=== PATIENT | female | born 1950 | race Caucasian/White ===

== ENCOUNTER → 2017-07-14 | Outpatient (CLI) | payer BC ==
[~2017-07-14] MED LIST: AMB10 PO; ATOR10TA88 PO; CONJ.6255 PO; PHEN37.586 PO; PRLSR20 PO; SENN-61 PO; SYN112 PO
--- NOTE | 2017-07-14 15:18 | MAMMOGRAPHY REPORT ---
BILATERAL DIGITAL DIAGNOSTIC MAMMOGRAM TOMOSYNTHESIS WITH CAD: 07/14/2017 CLINICAL HISTORY: 67-year-old woman presents for annual bilateral screening mammography, and also lulu se follow-up of additional clusters of microcalcifications of the left breast. TECHNIQUE: Bilateral CC and MLO 2-D and tomosynthesis images, spot magnification left CC and ML view s of both medially and laterally were obtained. Current study was also evaluated with a Computer Aid ed Detection (CAD) system. COMPARISON: Comparison is made to exams dated: 07/13/2016 mammogram, 07/09/2015 mammogram, 06/20/2014 m ammogram, 06/12/2013 mammogram, 06/10/2012 mammogram, and 06/08/2011 mammogram - [facility] enter. BREAST COMPOSITION: The tissue of both breasts is heterogeneously dense, which may obscure small mas ses. FINDINGS: The parenchymal pattern is similar to prior mammograms. There is a nodular asymmetry in th e superior posterior right breast on the MLO view, that appears very similar to the 06/08/2011 and mammograms, therefore likely benign. No obvious new mass, focal area of architectural disto rtion, asymmetry or new calcifications are identified. There is a stable metallic biopsy marker in t he lower inner quadrant of the left breast. The previously described clusters of punctate microcalci fications in both the lateral and medial left breast are stable dating back to May 2014, and with 3 years of stability are considered benign. There are mild vascular calcifications in the breasts. IMPRESSION: ACR BI-RADS CATEGORY 2: BENIGN Stable bilateral mammograms, including at least 3 clusters of punctate microcalcifications in the lat eral and medial left breast that are unchanged for 3 years and considered benign. There is no mammog raphic evidence of malignancy bilaterally. Recommend return to annual screening mammography schedule . These results and recommendations were discussed with the patient at the time of the exam. Approximately 10% of breast cancers are not detected with mammography. A negative mammographic report should not delay biopsy if a clinically suggestive mass is present. Judy Fleming M.D. ay/:07/14/2017 11:20:49 Canvassing Manager: Savanah Shaffer RT(R)(M), [facility] letter sent: Normal 1/2 BI-RADS Code: ACR BI-RADS Category 2: Benign
== END | disposition home or self-care (01) ==
LOC: C.MAMM 10:32
PROVIDERS: ATTEND Surgery
DX: R92.0 Mammographic microcalcification found on diagnostic imaging of breast (principal)

== ENCOUNTER 2024-10-02 20:14 | Observation (INO) ==
[2024-10-02 21:02] LABS: Basophils # (auto) 0.04 K/uL (0.00-0.20); Basophils % (auto) 0.2 %; Eosinophils # (auto) 0.04 K/uL (0.00-0.50); Eosinophils % (auto) 0.2 %; Hematocrit (blood only) 39.1 % (37.0-47.0); Hemoglobin 13.2 g/dl (12.0-16.0); Immature Granulocytes # (auto) 0.07 K/uL (0.01-0.20); Immature Granulocytes % (auto) 0.4 %; Lymphocytes # (auto) 1.86 K/uL (1.20-3.40); Lymphocytes % (auto) 11.1 %; Mean Corpuscular Hemoglobin 28.4 pg (25.0-34.0); Mean Corpuscular Hgb Conc 33.8 g/dL (32.0-36.0); Mean Corpuscular Volume 84.3 fL (80.0-100.0); Monocytes # (auto) 0.92 K/uL (0.11-0.59); Monocytes % (auto) 5.5 %; Neutrophils # (auto) 13.86 K/uL (1.40-6.50); Neutrophils % (auto) 82.6 %; Platelet Count 226 K/uL (130-400); RDW Coefficient of Variation 13.7 % (11.5-14.5); RDW Standard Deviation 42.4 fL (36.4-46.3); Red Blood Count 4.64 M/uL (4.20-5.40); White Blood Count 16.79 K/ul (4.8-10.8)
[2024-10-02 21:18] LABS: Alanine Aminotransferase 16 U/L (7-52); Albumin Globulin Ratio 1.3 (0.9-2); Albumin Level 4.2 gm/dl (3.4-5.0); Alkaline Phosphatase 74 U/L (34-104); Anion Gap 8 (3-11); Aspartate Aminotransferase 25 U/L (13-39); BUN Creatinine Ratio 24.3 (10-20); Bilirubin,Total 1.3 mg/dl (0.2-1.0); Blood Urea Nitrogen 26 mg/dl (6-23); Calcium 9.1 mg/dl (8.6-10.3); Carbon Dioxide 22 mmol/L (21-32); Chloride 100 mmol/L (98-107); Globulin 3.3 gm/dl (2.5-4.0); Glucose 107 mg/dl (70-99(Fasting)); Potassium 3.8 mmol/L (3.5-5.1); Sodium 130 mmol/L (136-145); Total Protein 7.5 gm/dl (6.0-8.3)
[2024-10-02 21:29] LABS: INR 1.1 (0.9-1.1); Partial Thromboplastin Time 27 Seconds (21-31); Prothrombin Time 11.4 Seconds (9.0-12.0)
[2024-10-02 21:51] LABS: Adenovirus PCR Not Detected (NotDetected); Bordetella parapertussis PCR Not Detected (NotDetected); Bordetella pertussis PCR Not Detected (NotDetected); Chlamydia pneumoniae PCR Not Detected (NotDetected); Coronavirus 229E PCR Not Detected (NotDetected); Coronavirus CoV-2 (COVID19)PCR Not Detected (NotDetected); Coronavirus HKU1 PCR Not Detected (NotDetected); Coronavirus NL63 PCR Not Detected (NotDetected); Coronavirus OC43PCR Not Detected (NotDetected); Human Metapneumovirus PCR Not Detected (NotDetected); Influenza A PCR Not Detected (NotDetected); Influenza B PCR Not Detected (NotDetected); Mycoplasma pneumoniae PCR Not Detected (NotDetected); Parainfluenza Virus 1 PCR Not Detected (NotDetected); Parainfluenza Virus 2 PCR Not Detected (NotDetected); Parainfluenza Virus 3 PCR Not Detected (NotDetected); Parainfluenza Virus 4 PCR Not Detected (NotDetected); Respiratory Syncytial VirusPCR Not Detected (NotDetected); Rhinovirus/Enterovirus PCR Not Detected (NotDetected)
[2024-10-02 23:46] LABS: Appearance Urine Clear (Clear); Bilirubin Urine Negative (Negative); Blood Urine Trace-intact (Negative); Color Urine Yellow; Glucose Urine UA Negative (Negative); Ketones Urine Negative (Negative); Leukocyte Esterase Urine 1+ (Negative); Nitrite Urine Negative (Negative); Protein Urine Negative (Negative); Specific Gravity Urine <= 1.005 (1.000-1.030); Urobilinogen Urine Negative (Negative)
--- NOTE | 2024-10-02 23:55 | Emergency Department Note ---
Impression & Plan Acute UTI, Leukocytosis, Generalized body aches, Polyarthralgia, Elevated erythrocyte sedimentation rate, CRP elevated ED Provider Note NAME: CHRIS GARRISON AGE: 74 SEX: F : 1950 ARRIVES VIA: Walk-In INFORMANT: Patient ED PROVIDER(S): Prakash Ortega MD CHIEF COMPLAINT: Generalized bodyaches, joint pain, generalized weakness PLAN: Disposition: Admit MEDICAL DECISION MAKING: The patient is a pleasant 74-year-old woman with a past medical history of hypothyroidism, hyperlipidemia, GERD, peripheral neuropathy who presents to the emergency department via walk-in accompanied by family for evaluation of generalized bodyaches and joint pain that occurred abruptly at 3 AM last night and has been progressively worsening since then where she reports being unable to walk due to pain throughout her body. She denies any fevers. She denies any cough, congestion though did speculate to her daughter that she wondered if she had COVID but did perform a negative home COVID-19 test. She denies nausea, vomiting, diarrhea. She has any urinary symptoms. She denies any prior episodes of similar symptoms. Of note, the patient did arrive to emergency department during time of high volume, acuity and prolonged emergency department waiting times. Critical pathways initiated from triage. The patient presents afebrile in no acute distress with stable vital signs. She appears clinically dry. She has no focal neurologic deficits. She exhibits discomfort with range of motion of bilateral knees, elbows and shoulders. There is no overt swelling, warmth or discoloration of her joints. EKG demonstrates left bundle branch block, no Sgarbossa criteria, no prior EKGs for comparison. Chest x-ray with interstitial thickening without focal consolidation. Description of lucency underneath the left diaphragm is consistent with the patient's stomach and transverse colon as seen on subsequent CT imaging. No clinical signs or symptoms to suggest perforation. WBC 16.7 K with neutrophilia but no left shift, nonspecific. H/H and platelets within normal limits. Chemistry without metabolic acidosis. BUNs/creatinine is 24 consistent with patient's clinical dry appearance. Total bili 1.3, nonspecific with LFTs otherwise normal. CPK within normal limits. ESR and CRP are elevated at 41 and 5.89, respectively, nonspecific. Procalcitonin is elevated at 1.07. TSH is normal limits. UA is suspicious for infection with WBCs 11-20 albeit with epithelial cells and no bacteria. Respiratory BioFire panel was negative. Anaplasma and Babesia smear were negative. DNA testing pending. Lyme screen was negative. Patient was treated with IV hydration, IV APAP, Toradol, dexamethasone but still had persistence of symptoms. Given suspicion for urinary infection with leukocytosis elevated procalcitonin blood cultures obtained and she was initiated with ceftriaxone. Given persistence of the patient's symptoms patient was referred to hospital service for admission. Case was discussed with Dr. [facility], who will evaluate the patient for admission. CT of the abdomen pelvis subsequently negative for acute intra-abdominal process. Hiatal hernia, bilateral simple renal cysts, hypodense left suprarenal nodule, umbilical hernia containing fat and spondylitic degenerative changes within the lumbar spine are described. Further management per admitting team. Triage Nursing notes reviewed and agree them. Prior/external medical records reviewed Vital Signs: reviewed Differential diagnosis: Infection, dehydration, metabolic abnormality, hypo/hyperglycemia, electrolyte disturbance, anemia, hypoxia, cardiac sources, intracerebral event, toxicologic, neurologic, as well as other pathologies. ER treatment provided: See below. Diagnostics interpreted by me: ECG: Normal sinus rhythm with sinus arrhythmia, 81 bpm, no ectopy, left bundle branch block, no Sgarbossa criteria, QTc 504, QRS 152. No prior EKGs for comparison. Cardiac Monitoring: An order for continuous cardiac monitoring was placed and demonstrated normal sinus rhythm, no ectopy. Laboratory studies: See below Imaging studies: See below Consultation(s): Case was discussed with Dr. [facility], who will evaluate the patient for admission. HPI: The patient is a pleasant 74-year-old woman with a past medical history of hypothyroidism, hyperlipidemia, GERD, peripheral neuropathy who presents to the emergency department via walk-in accompanied by family for evaluation of generalized bodyaches and joint pain that occurred abruptly at 3 AM last night and has been progressively worsening since then where she reports being unable to walk due to pain throughout her body. She denies any fevers. She denies any cough, congestion though did speculate to her daughter that she wondered if she had COVID but did perform a negative home COVID-19 test. She denies nausea, vomiting, diarrhea. She has any urinary symptoms. She denies any prior episodes of similar symptoms. ROS: See above HPI for pertinent positives & negatives. A total of 10 systems reviewed and were otherwise negative. VITALS:See Below PHYSICAL EXAMINATION: GENERAL: Awake, alert, fatigued-appearing, in no distress HENT: Normocephalic, atraumatic. Oropharynx with dry mucous membranes and otherwise unremarkable. EYES: Normal conjunctiva. Sclera non-icteric. EOMI. No nystamgus. PEARRL. NECK: Supple. No nuchal rigidity. FROM. No JVD. RESPIRATORY: Clear to auscultation. CARDIAC: Regular rate, normal rhythm. Extremities warm and well perfused. Pulses equal. ABDOMEN: Soft, non-distended. No tenderness to palpation. No rebound or guarding. No masses. MUSCULOSKELETAL: Chest examination reveals no tenderness. The back is symmetrical on inspection without obvious abnormality. There is no CVA tenderness to palpation. Exhibits discomfort with range of motion of bilateral knees, elbows and shoulders. There is no overt swelling, warmth or discoloration of her joints. LOWER EXTREMITIES: Calves are equal size bilaterally and non-tender. No edema. No discoloration. NEURO: No focal sensory or motor deficits noted. Generalized weakness with 4/5 strength and SILT x 4 extremities. SKIN: No rash or jaundice noted. Prakash Ortega MD Past Med/Surg History Problem List (Updated 10/03/24 @ 06:36 by Prakash Ortega MD) CRP elevated (Acute) Elevated erythrocyte sedimentation rate (Acute) Polyarthralgia (Acute) Generalized body aches (Acute) Leukocytosis (Acute) Acute UTI (Acute) Social History Smoking Status: Never smoker Preferred Language: Lithuanian Feels Safe at Home: Yes Allergies Allergies Allergy/AdvReac Type Severity Reaction Status Date / Time No Known Allergies Allergy Unknown Verified 03/26/08 15:18 niacin AdvReac Intermediate SEVERE Verified 11/29/09 04:32 FLUSHING AND DIZZINESS lovastatin AdvReac Mild FLUSHING Unverified 11/29/09 04:32 Home Meds Home Medications Medication Instructions Recorded Confirmed aspirin 81 mg tablet,delayed 81 mg PO DAILY 10/03/24 10/03/24 release atorvastatin 40 mg tablet 40 mg PO DAILY 10/03/24 10/03/24 citalopram 20 mg tablet 20 mg PO DAILY 10/03/24 10/03/24 cyanocobalamin (vitamin B-12) 500 500 mcg PO DAILY 10/03/24 10/03/24 mcg tablet gabapentin 300 mg capsule 300 mg PO TID 10/03/24 10/03/24 levothyroxine 88 mcg tablet 88 mcg PO DAILY 10/03/24 10/03/24 (Synthroid) magnesium oxide 400 mg PO DAILY 10/03/24 10/03/24 omeprazole 20 mg capsule,delayed 20 mg PO DAILY 10/03/24 10/03/24 release semaglutide 2 mg/dose (8 mg/3 mL) 2 mg subcut WK 10/03/24 10/03/24 subcutaneous pen injector (Ozempic) valacyclovir 1 gram tablet 2,000 mg PO UD 10/03/24 10/03/24 Results & Data (ED) Vital Signs Vital Signs - 24 hr 10/02/24 20:29 10/02/24 21:27 10/02/24 23:22 Temperature 36.8 C Temperature Source Temporal Artery Scan Pulse Rate 86 Pulse Rate [Apical] Pulse Rate [Finger] 79 86 Respiratory Rate 20 16 16 Respiratory Effort / Characteristics Non-Labored Spontaneous Non-Labored Spontaneous Non-Labored Spontaneous Respiratory Depth Normal Normal Normal Respiratory Pattern Regular Regular Blood Pressure 102/50 L Blood Pressure [Right Arm] 121/59 L 117/72 Blood Pressure Mean 67 Blood Pressure Mean [Right Arm] 79 87 Pulse Oximetry 100 97 95 Oxygen Delivery Method Room Air Room Air Room Air Sepsis Recent Fever Within 48 Hours No Sepsis New/Unexplained Change in Mental Status N/A Sepsis Action Taken by Nursing No Action Required 10/03/24 01:38 10/03/24 01:59 10/03/24 03:00 Temperature Temperature Source Pulse Rate 81 Pulse Rate [Apical] 81 70 Pulse Rate [Finger] Respiratory Rate 18 18 Respiratory Effort / Characteristics Non-Labored Spontaneous Non-Labored Spontaneous Respiratory Depth Normal Normal Respiratory Pattern Regular Regular Blood Pressure Blood Pressure [Right Arm] 135/69 117/59 L Blood Pressure Mean Blood Pressure Mean [Right Arm] 91 78 Pulse Oximetry 96 94 Oxygen Delivery Method Room Air Room Air Sepsis Recent Fever Within 48 Hours Sepsis New/Unexplained Change in Mental Status Sepsis Action Taken by Nursing 10/03/24 05:39 10/03/24 05:48 Temperature Temperature Source Pulse Rate 67 81 Pulse Rate [Apical] Pulse Rate [Finger] Respiratory Rate 18 Respiratory Effort / Characteristics Respiratory Depth Respiratory Pattern Blood Pressure 127/81 Blood Pressure [Right Arm] Blood Pressure Mean Blood Pressure Mean [Right Arm] Pulse Oximetry 96 Oxygen Delivery Method Room Air Sepsis Recent Fever Within 48 Hours Sepsis New/Unexplained Change in Mental Status Sepsis Action Taken by Nursing Laboratory Data Attestation: I reviewed the patient's lab results. 10/02/24 20:46 10/02/24 20:46 Lab Results 10/02/24 10/02/24 10/02/24 Range/Units 20:40 20:46 23:35 WBC 16.79 H (4.8-10.8) K/ul RBC 4.64 (4.20-5.40) M/uL Hgb 13.2 (12.0-16.0) g/dl Hct 39.1 (37.0-47.0) % MCV 84.3 (80.0-100.0) fL MCH 28.4 (25.0-34.0) pg MCHC 33.8 (32.0-36.0) g/dL RDW Std Deviation 42.4 (36.4-46.3) fL RDW Coeff of Abimael 13.7 (11.5-14.5) % Plt Count 226 (130-400) K/uL MPV 10.0 (9.4-12.4) fL Immature Gran % (Auto) 0.4 % Neut % (Auto) 82.6 % Lymph % (Auto) 11.1 % [place] % (Auto) 5.5 % Eos % (Auto) 0.2 % Baso % (Auto) 0.2 % Neut # (Auto) 13.86 H (1.40-6.50) K/uL Lymph # (Auto) 1.86 (1.20-3.40) K/uL [place] # (Auto) 0.92 H (0.11-0.59) K/uL Eos # (Auto) 0.04 (0.00-0.50) K/uL Baso # (Auto) 0.04 (0.00-0.20) K/uL Immature Gran # (Auto) 0.07 (0.01-0.20) K/uL ESR 41 H (0-30) mm/hr PT 11.4 (9.0-12.0) Seconds INR 1.1 (0.9-1.1) APTT 27 (21-31) Seconds PTT Ratio 1.0 Sodium 130 L (136-145) mmol/L Potassium 3.8 (3.5-5.1) mmol/L Chloride 100 (98-107) mmol/L Carbon Dioxide 22 (21-32) mmol/L Anion Gap 8 (3-11) BUN 26 H (6-23) mg/dl Creatinine 1.07 (0.6-1.2) mg/dl Est Cr Clr Drug Dosing Not Reportable eGFR 54.17 BUN/Creatinine Ratio 24.3 H (10-20) Glucose 107 H (70-99(Fasting)) mg/dl Calcium 9.1 (8.6-10.3) mg/dl Total Bilirubin 1.3 H (0.2-1.0) mg/dl AST 25 (13-39) U/L ALT 16 (7-52) U/L Alkaline Phosphatase 74 (34-104) U/L Total Creatine Kinase 63 (26-192) U/L C-Reactive Protein 5.89 H (0-0.5) mg/dl Total Protein 7.5 (6.0-8.3) gm/dl Albumin 4.2 (3.4-5.0) gm/dl Globulin 3.3 (2.5-4.0) gm/dl Albumin/Globulin Ratio 1.3 (0.9-2) Procalcitonin 1.07 H (0-0.5) ng/ml TSH 1.807 (0.300-4.500) uIu/ml Urine Color Yellow Urine Appearance Clear (Clear) Urine pH 6.0 (4.5-7.5) Ur Specific [place] <= 1.005 (1.000-1.030) Urine Protein Negative (Negative) Urine Glucose (UA) Negative (Negative) Urine Ketones Negative (Negative) Urine Blood Trace-intact H (Negative) Urine Nitrite Negative (Negative) Urine Bilirubin Negative (Negative) Urine Urobilinogen Negative (Negative) Ur Leukocyte Esterase 1+ H (Negative) Urine RBC 0-2 (0-2) /hpf Urine WBC 11-20 H (0-5) /hpf Ur Epithelial Cells 11-20 H (0-2) /hpf Urine Bacteria None Seen (None Seen) Adenovirus (PCR) Not Detected (NotDetected) Anaplasma Smear See Comment Babesia Smear See Comment B. pertussis DNA (PCR) Not Detected (NotDetected) B.parapertussis DNA PCR Not Detected (NotDetected) Lyme Disease Screen Negative (Negative) C. pneumoniae DNA (PCR) Not Detected (NotDetected) Coronavirus OC43 (PCR) Not Detected (NotDetected) Coronavirus HKU1 (PCR) Not Detected (NotDetected) Coronavirus 229E (PCR) Not Detected (NotDetected) SARS-CoV-2 (PCR) Not Detected (NotDetected) Coronavirus NL63 (PCR) Not Detected (NotDetected) Human Metapneumovir PCR Not Detected (NotDetected) Influenza Type A (PCR) Not Detected (NotDetected) Influenza Type B (PCR) Not Detected (NotDetected) M. pneumoniae (PCR) Not Detected (NotDetected) Parainfluenza 1 (PCR) Not Detected (NotDetected) Parainfluenza 2 (PCR) Not Detected (NotDetected) Parainfluenza 3 (PCR) Not Detected (NotDetected) Parainfluenza 4 (PCR) Not Detected (NotDetected) RSV (PCR) Not Detected (NotDetected) Entero/Rhino (PCR) Not Detected (NotDetected) Administered Medications Discontinued Medications Dexamethasone Sodium Phosphate (DexamethasonePf 10 Mg/Ml Vial) 10 mg IV NOW ONE Stop: 10/02/24 23:55 Last Admin: 10/03/24 00:03 Dose: 10 mg Documented By: ELIZABETH Sodium Chloride (Nss) 1,000 mls @ 999 mls/hr IV .Q1H1M ONE Stop: 10/03/24 00:54 Last Infusion: 10/03/24 01:28 Dose: Infused Documented By: Admin: 10/03/24 00:01 Dose: 999 mls/hr Documented By: ELIZABETH Acetaminophen (Ofirmev) 1,000 mg in 100 mls @ 400 mls/hr IV NOW STA Stop: 10/03/24 00:08 Last Infusion: 10/03/24 00:42 Dose: Infused Documented By: Admin: 10/03/24 00:11 Dose: 400 mls/hr Documented By: ELIZABETH Ceftriaxone Sodium (Rocephin) 2,000 mg in 50 mls @ 100 mls/hr IV NOW STA Stop: 10/03/24 01:21 Last Infusion: 10/03/24 03:07 Dose: Infused Documented By: Admin: 10/03/24 02:05 Dose: 100 mls/hr Documented By: ELIZABETH Ioversol (Optiray 320 100ml) 91 ml IV ONCE ONE Stop: 10/03/24 01:13 Last Admin: 10/03/24 01:14 Dose: 91 ml Documented By: TRU Ketorolac Tromethamine (Ketorolac Tromethamine 15 Mg/Ml Vial) 15 mg IV NOW STA Stop: 10/02/24 23:55 Last Admin: 10/03/24 00:01 Dose: 15 mg Documented By: ELIZABETH Ketorolac Tromethamine (Ketorolac Tromethamine 15 Mg/Ml Vial) 15 mg IV NOW STA Stop: 10/03/24 01:39 Last Admin: 10/03/24 02:01 Dose: 15 mg Documented By: EMB Imaging Data Radiologist's Impression: Chest X-Ray 10/02/24 23:52 EXAM: XR chest 1V portable CLINICAL HISTORY: FEVERISH, BODYACHES WTW TECHNIQUE: X-ray image of the chest is obtained in AP portable projection. COMPARISON: No prior studies are available for comparison. FINDINGS: Rotation of patient. Pulmonary Parenchyma: Right perihilar opacification could be projectional. No consolidation, pneumothorax. The focal nodular opacity. No evidence of pleural effusion or pleural thickening. Heart and Mediastinum: Cardiomegaly. Possible hiatal hernia. Bony Thorax: The bony thorax appears intact without fractures or deformities. Large left cervical rib. Soft Tissues: A suspicious lucent is seen under the left diaphragm. IMPRESSION: 1. Cardiomegaly. 2. Mild perihilar pulmonary congestion. 3. A suspicious lucent is seen under the left diaphragm, possibly mild free gas under the diaphragm/bowel gases however further evaluation and confirmation are suggested if clinically indicated. 4. Possible hiatal hernia. [facility] ER was called at [phone] at 11:51 AM CANE WEIGHER on 10/02/2024 and results were verbally communicated with Prakash Negron. Electronically signed by Bulmaro Bradley 10-03-2024 12:57 AM Abdomen/Pelvis CT 10/03/24 00:55 EXAM: CT abd pelvis IV con only CLINICAL HISTORY: feverish, bodyaches, uti 91 cc opti 320 TECHNIQUE: CT of the abdomen and pelvis was performed with 92ml of Opitray-320mg/ml contrast, with the following protocol: axial images with, and reconstructed coronal and sagittal images. One of the following dose reduction techniques was utilized for this exam: Automated exposure control, adjustment of the mA and/or kV according to patient size, and use of iterative reconstruction. COMPARISON: No prior studies available for comparison. FINDINGS: Abdomen: Liver: Normal in size, shape, and density. No focal lesions, cysts, or masses were identified. Hepatic vasculature and biliary ducts are unremarkable. Gallbladder and Biliary System: Post cholecystectomy status. The common bile duct is normal in caliber without dilation. Pancreas: Pancreatic head, body, and tail are visualized and appear normal in size and density. No pancreatic masses or calcifications were noted. The pancreatic duct is not dilated. Spleen: Normal in size, shape, and density. No splenic lesions or masses were identified. Kidneys and Adrenal Glands: Both kidneys are normal in size, shape, and position. Bilateral simple renal cysts are noted. Cortical thickness is within normal limits. No renal calculi or hydronephrosis. A hypodense nodule is noted in the left suprarenal gland, measures 6x7x6 mm. The right adrenal gland is unremarkable with no evidence of masses or hyperplasia. Pelvis: Urinary Bladder: Normal in contour and wall thickness. No intraluminal lesions were identified. Uterus: Post hysterectomy status with clear surgical bed. Ovaries: Not well visualized but no gross abnormalities were noted. Vagina: Normal in contour and wall thickness. A large hiatus para esophageal hernia is noted in the posterior mediastinum. Peritoneal and Retroperitoneal Structures: No free fluid or abnormal fluid collections were identified within the abdomen or pelvis. No lymphadenopathy was noted. Bowel: The visualized bowel loops are normal in caliber and appearance. No evidence of bowel obstruction or wall thickening. No appendicular lesions. 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 Umbilical hernia containg fat. Atherosclerotic vascular calcifications. IMPRESSION: 1. A large hiatus para esophageal hernia is noted in the posterior mediastinum. 2. Bilateral simple renal cysts are noted, Bosniak class I. 3. A hypodense nodule is noted in the left suprarenal gland, measures 6x7x6 mm. 4. Post hysterectomy and cholecystectomy status with clear surgical beds. 5. Umbilical hernia containg fat. 6. 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 7. Atherosclerotic vascular calcifications. Electronically signed by Bulmaro Bradley 10-03-2024 02:30 AM Discharge Plan Visit Data Chief Complaint: Pain (Generalized) Stated Complaint: NECK PAIN,UNABLE TO STAND,HAND/KNEES/FEET PAIN ED Provider: Prakash Ortega Discharge Problem: Acute UTI, Leukocytosis, Generalized body aches, Polyarthralgia, Elevated erythrocyte sedimentation rate, CRP elevated Patient Disposition: Admitted As Inpatient Discharge Instructions Interventions: ED Discharge Assessment Last Done: 10/03/24 05:48 Discharge Problem: Leukocytosis Qualifiers: Leukocytosis type: unspecified Qualified Code(s): D72.829 - Elevated white blood cell count, unspecified
[2024-10-02 23:58] LABS: Bacteria Urine None Seen (None Seen); RBC Urine 0-2 /hpf (0-2)
[2024-10-03] MEDS: SODIUM CHLORIDE 0.9% 1,000 ML IV ONE (00:01)
[2024-10-03] MEDS: KETOROLAC TROMETHAMINE 15 MG/ML VIAL IV STA ×2 (00:01→02:01)
[2024-10-03] MEDS: dexAMETHasone**PF** 10 MG/ML VIAL IV ONE (00:03)
[2024-10-03] MEDS: ACETAMINOPHEN 1,000 MG/100 ML VIAL IV STA (00:11)
[2024-10-03 00:23] LABS: C Reactive Protein 5.89 mg/dl (0-0.5)
[2024-10-03 00:38] LABS: Thyroid Stimulating Hormone 1.807 uIu/ml (0.300-4.500)
[2024-10-03] MEDS: OPTIRAY 320 100ml IV ONE (01:14)
[2024-10-03 02:02] LABS: Creatine Kinase 63 U/L (26-192)
[2024-10-03] MEDS: cefTRIAXone SODIUM 2,000 MG/50 ML BAG IV STA (02:05)
--- NOTE | 2024-10-03 02:08 | XRay Report ---
EXAM: XR chest 1V portable CLINICAL HISTORY: FEVERISH, BODYACHES WTW TECHNIQUE: X-ray image of the chest is obtained in AP portable projection. COMPARISON: No prior studies are available for comparison. FINDINGS: Rotation of patient. Pulmonary Parenchyma: Right perihilar opacification could be projectional. No consolidation, pneumothorax. The focal nodular opacity. No evidence of pleural effusion or pleural thickening. Heart and Mediastinum: Cardiomegaly. Possible hiatal hernia. Bony Thorax: The bony thorax appears intact without fractures or deformities. Large left cervical rib. Soft Tissues: A suspicious lucent is seen under the left diaphragm. IMPRESSION: 1. Cardiomegaly. 2. Mild perihilar pulmonary congestion. 3. A suspicious lucent is seen under the left diaphragm, possibly mild free gas under the diaphragm/bowel gases however further evaluation and confirmation are suggested if clinically indicated. 4. Possible hiatal hernia. 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 Electronically signed by Bulmaro Bradley 10-03-2024 12:57 AM
--- NOTE | 2024-10-03 03:44 | CT Scan Report ---
EXAM: CT abd pelvis IV con only CLINICAL HISTORY: feverish, bodyaches, uti 91 cc opti 320 TECHNIQUE: CT of the abdomen and pelvis was performed with 92ml of Opitray-320mg/ml contrast, with the following protocol: axial images with, and reconstructed coronal and sagittal images. One of the following dose reduction techniques was utilized for this exam: Automated exposure control, adjustment of the mA and/or kV according to patient size, and use of iterative reconstruction. COMPARISON: No prior studies available for comparison. FINDINGS: Abdomen: Liver: Normal in size, shape, and density. No focal lesions, cysts, or masses were identified. Hepatic vasculature and biliary ducts are unremarkable. Gallbladder and Biliary System: Post cholecystectomy status. The common bile duct is normal in caliber without dilation. Pancreas: Pancreatic head, body, and tail are visualized and appear normal in size and density. No pancreatic masses or calcifications were noted. The pancreatic duct is not dilated. Spleen: Normal in size, shape, and density. No splenic lesions or masses were identified. Kidneys and Adrenal Glands: Both kidneys are normal in size, shape, and position. Bilateral simple renal cysts are noted. Cortical thickness is within normal limits. No renal calculi or hydronephrosis. A hypodense nodule is noted in the left suprarenal gland, measures 6x7x6 mm. The right adrenal gland is unremarkable with no evidence of masses or hyperplasia. Pelvis: Urinary Bladder: Normal in contour and wall thickness. No intraluminal lesions were identified. Uterus: Post hysterectomy status with clear surgical bed. Ovaries: Not well visualized but no gross abnormalities were noted. Vagina: Normal in contour and wall thickness. A large hiatus para esophageal hernia is noted in the posterior mediastinum. Peritoneal and Retroperitoneal Structures: No free fluid or abnormal fluid collections were identified within the abdomen or pelvis. No lymphadenopathy was noted. Bowel: The visualized bowel loops are normal in caliber and appearance. No evidence of bowel obstruction or wall thickening. No appendicular lesions. 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 Umbilical hernia containg fat. Atherosclerotic vascular calcifications. IMPRESSION: 1. A large hiatus para esophageal hernia is noted in the posterior mediastinum. 2. Bilateral simple renal cysts are noted, Bosniak class I. 3. A hypodense nodule is noted in the left suprarenal gland, measures 6x7x6 mm. 4. Post hysterectomy and cholecystectomy status with clear surgical beds. 5. Umbilical hernia containg fat. 6. 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 7. Atherosclerotic vascular calcifications. Electronically signed by Bulmaro Bradley 10-03-2024 02:30 AM
--- NOTE | 2024-10-03 04:19 | History & Physical Report ---
Date of Service October 03, 2024 Assessment & Plan (1) Generalized body aches: Plan: 74-year-old female with past medical history significant for type 2 diabetes, diabetic peripheral neuropathy, hypothyroidism, hyperlipidemia, nonrheumatic aortic valve insufficiency, GERD, fatty liver, osteoarthritis of multiple joints, iron deficiency anemia, depression, comes because of severe pain in the joints and whole body aches starting yesterday morning 3 AM. Patient says she woke up yesterday around 3 AM and then started to having whole body aches and joint pains and at the time she also had a episode of sweating. Since then no sweating. Because of pain she is not able to ambulate.Also having neck pain and couldn't extend it completely. Denies any fevers. Vision is okay. No runny nose or sore throat. No cough. No chest pain. No shortness of. No nausea. No abdominal pain. Normal bowel and bladder movements. Denies evidence of black stools. No hematuria. Hemodynamics are okay. Generalized body aches Polyarthralgia Neck pain Neck stiffness Leukocytosis ESR 41 and CRP 5.8 Procalcitonin 1.07 Possible UTI Will rule out meningitis Lumbar puncture Rocephin Empiric Vanco with 48-hour stop Gentle fluids. N.p.o. until LP Monitor the response Pain control Hyponatremia Sodium 130 Will follow urine osmolality, serum osmolality and urine sodium levels Gentle fluids Follow repeat labs History of osteoarthritis of multiple joints Patient is saying her osteoarthritis is mild Possible flare from infection Received Decadron in the ER Pain control Abnormal EKG Left bundle branch block We do not have recent EKG to compare Patient denies any chest pain or shortness of breath Will follow echo Hypothyroidism On Synthyroid tsh is ok Hyperlipidemia On statin Total CK is okay Depression On citalopram GERD Omeprazole Diabetes Will hold Ozempic Sliding scale Will monitor Diabetic peripheral neuropathy On gabapentin History of iron deficiency anemia Hemoglobin 13.2 DVT prophylaxis SCDs for now Disposition Medical floor Full code. History of Present Illness Chief Complaint: Generalized body pain and joint pains and neck pain Primary Care Provider: Liss Penn DO 74-year-old female with past medical history significant for type 2 diabetes, diabetic peripheral neuropathy, hypothyroidism, hyperlipidemia, nonrheumatic aortic valve insufficiency, GERD, fatty liver, osteoarthritis of multiple joints, iron deficiency anemia, depression, comes because of severe pain in the joints and whole body aches starting yesterday morning 3 AM. Patient says she woke up yesterday around 3 AM and then started to having whole body aches and joint pains and at the time she also had a episode of sweating. Since then no sweating. Because of pain she is not able to ambulate.Also having neck pain and couldn't extend it completely. Denies any fevers. Vision is okay. No runny nose or sore throat. No cough. No chest pain. No shortness of. No nausea. No abdominal pain. Normal bowel and bladder movements. Denies evidence of black stools. No hematuria. Hemodynamics are okay. Past medical history. As mentioned above Past surgical history. Colonoscopy. EGD. Foot surgery. Appendectomy. Removal of oviducts. Removal of thyroid lesion. Cholecystectomy. Repair of urethral prolapse, repair of vaginal prolapse, repair of rectocele, stereotactic biopsy, total hysterectomy. Family history. Father had pancreatitis. Mother had cervical cancer. Brother had hypercholesterolemia, diabetes and renal failure. Brother has cirrhosis. Social history. . No smoking. Alcohol rarely. No drug use. Allergies Allergy/AdvReac Type Severity Reaction Status Date / Time No Known Allergies Allergy Unknown Verified 03/26/08 15:18 niacin AdvReac Intermediate SEVERE Verified 11/29/09 04:32 FLUSHING AND DIZZINESS lovastatin AdvReac Mild FLUSHING Unverified 11/29/09 04:32 Home Medications Medication Instructions Recorded Confirmed Type aspirin 81 mg tablet,delayed 81 mg PO DAILY 10/03/24 10/03/24 History release atorvastatin 40 mg tablet 40 mg PO DAILY 10/03/24 10/03/24 History citalopram 20 mg tablet 20 mg PO DAILY 10/03/24 10/03/24 History cyanocobalamin (vitamin B-12) 500 500 mcg PO DAILY 10/03/24 10/03/24 History mcg tablet gabapentin 300 mg capsule 300 mg PO TID 10/03/24 10/03/24 History levothyroxine 88 mcg tablet 88 mcg PO DAILY 10/03/24 10/03/24 History (Synthroid) magnesium oxide 400 mg PO DAILY 10/03/24 10/03/24 History omeprazole 20 mg capsule,delayed 20 mg PO DAILY 10/03/24 10/03/24 History release semaglutide 2 mg/dose (8 mg/3 mL) 2 mg subcut WK 10/03/24 10/03/24 History subcutaneous pen injector (Ozempic) valacyclovir 1 gram tablet 2,000 mg PO UD 10/03/24 10/03/24 History Past Med/Surg History Problem List (Updated 10/03/24 @ 06:36 by Prakash Ortega MD) CRP elevated (Acute) Elevated erythrocyte sedimentation rate (Acute) Polyarthralgia (Acute) Generalized body aches (Acute) Leukocytosis (Acute) Acute UTI (Acute) Social History Smoking Status: Never smoker Hx Alcohol Use: Yes Alcohol type: wine Hx Substance Use: No Preferred Language: Greek Communication Ability: Effective Assurance Assistant Required: No Beliefs That Will Affect Care: None Current Living Situation: Spouse Other Information That Helps Us Care for You: No Feels Safe at Home: Yes Safety Concerns: Feels Safe At This Time Assistive Devices: Denture - Upper, Denture - Lower and Glasses Review of Systems Review of Systems: All systems reviewed & are unremarkable except as noted in HPI & below Physical Exam Physical Exam: General- Not in distress Head- atraumatic Eyes- PERRL. ENT- oropharynx clear Neck- stiff, painful neck movements, cannot extend fully. Lungs- clear to auscultation , no wheezing or crackles. Heart- regular rate and rhythm; no murmur, no gallop. Abdomen- normal bowel sounds, soft, nontender, no distension. Extremities- no pretibial edema, no erythema seen. Neuro- alert, oriented PERRL, no facial palsy; no dysarthria; moves extremities Results & Data Results & Data Vital Signs (Past 12 Hours) Vital Signs Temp Pulse Pulse Pulse Resp BP BP 10/03/24 03:00 70 18 117/59 L 10/03/24 01:59 81 18 135/69 10/03/24 01:38 81 10/02/24 23:22 86 16 117/72 10/02/24 21:27 79 16 121/59 L 10/02/24 20:29 36.8 C 86 20 102/50 L Pulse Ox O2 Del Method 10/03/24 03:00 94 Room Air 10/03/24 01:59 96 Room Air 10/03/24 01:38 10/02/24 23:22 95 Room Air 10/02/24 21:27 97 Room Air 10/02/24 20:29 100 Room Air Diagnostic Findings Laboratory Results WBC 16.79 K/ul (4.8-10.8) H 10/02/24 20:46 RBC 4.64 M/uL (4.20-5.40) 10/02/24 20:46 Hgb 13.2 g/dl (12.0-16.0) 10/02/24 20:46 Hct 39.1 % (37.0-47.0) 10/02/24 20:46 MCV 84.3 fL (80.0-100.0) 10/02/24 20:46 MCH 28.4 pg (25.0-34.0) 10/02/24 20:46 MCHC 33.8 g/dL (32.0-36.0) 10/02/24 20:46 RDW Std Deviation 42.4 fL (36.4-46.3) 10/02/24 20:46 RDW Coeff of Abimael 13.7 % (11.5-14.5) 10/02/24 20:46 Plt Count 226 K/uL (130-400) 10/02/24 20:46 MPV 10.0 fL (9.4-12.4) 10/02/24 20:46 Immature Gran % (Auto) 0.4 % 10/02/24 20:46 Neut % (Auto) 82.6 % 10/02/24 20:46 Lymph % (Auto) 11.1 % 10/02/24 20:46 O'Brien % (Auto) 5.5 % 10/02/24 20:46 Eos % (Auto) 0.2 % 10/02/24 20:46 Baso % (Auto) 0.2 % 10/02/24 20:46 Neut # (Auto) 13.86 K/uL (1.40-6.50) H 10/02/24 20:46 Lymph # (Auto) 1.86 K/uL (1.20-3.40) 10/02/24 20:46 O'Brien # (Auto) 0.92 K/uL (0.11-0.59) H 10/02/24 20:46 Eos # (Auto) 0.04 K/uL (0.00-0.50) 10/02/24 20:46 Baso # (Auto) 0.04 K/uL (0.00-0.20) 10/02/24 20:46 Immature Gran # (Auto) 0.07 K/uL (0.01-0.20) 10/02/24 20:46 ESR 41 mm/hr (0-30) H 10/02/24 20:46 PT 11.4 Seconds (9.0-12.0) 10/02/24 20:46 INR 1.1 (0.9-1.1) 10/02/24 20:46 APTT 27 Seconds (21-31) 10/02/24 20:46 PTT Ratio 1.0 10/02/24 20:46 Sodium 130 mmol/L (136-145) L 10/02/24 20:46 Potassium 3.8 mmol/L (3.5-5.1) 10/02/24 20:46 Chloride 100 mmol/L (98-107) 10/02/24 20:46 Carbon Dioxide 22 mmol/L (21-32) 10/02/24 20:46 Anion Gap 8 (3-11) 10/02/24 20:46 BUN 26 mg/dl (6-23) H 10/02/24 20:46 Creatinine 1.07 mg/dl (0.6-1.2) 10/02/24 20:46 Est Cr Clr Drug Dosing Not Reportable 10/02/24 20:46 eGFR 54.17 10/02/24 20:46 BUN/Creatinine Ratio 24.3 (10-20) H 10/02/24 20:46 Glucose 107 mg/dl (70-99(Fasting)) H 10/02/24 20:46 Calcium 9.1 mg/dl (8.6-10.3) 10/02/24 20:46 Total Bilirubin 1.3 mg/dl (0.2-1.0) H 10/02/24 20:46 AST 25 U/L (13-39) 10/02/24 20:46 ALT 16 U/L (7-52) 10/02/24 20:46 Alkaline Phosphatase 74 U/L (34-104) 10/02/24 20:46 Total Creatine Kinase 63 U/L (26-192) 10/02/24 20:46 C-Reactive Protein 5.89 mg/dl (0-0.5) H 10/02/24 20:46 Total Protein 7.5 gm/dl (6.0-8.3) 10/02/24 20:46 Albumin 4.2 gm/dl (3.4-5.0) 10/02/24 20:46 Globulin 3.3 gm/dl (2.5-4.0) 10/02/24 20:46 Albumin/Globulin Ratio 1.3 (0.9-2) 10/02/24 20:46 Procalcitonin 1.07 ng/ml (0-0.5) H 10/02/24 20:46 TSH 1.807 uIu/ml (0.300-4.500) 10/02/24 20:46 Urine Color Yellow 10/02/24 23:35 Urine Appearance Clear (Clear) 10/02/24 23:35 Urine pH 6.0 (4.5-7.5) 10/02/24 23:35 Ur Specific [place] <= 1.005 (1.000-1.030) 10/02/24 23:35 Urine Protein Negative (Negative) 10/02/24 23:35 Urine Glucose (UA) Negative (Negative) 10/02/24 23:35 Urine Ketones Negative (Negative) 10/02/24 23:35 Urine Blood Trace-intact (Negative) H 10/02/24 23:35 Urine Nitrite Negative (Negative) 10/02/24 23:35 Urine Bilirubin Negative (Negative) 10/02/24 23:35 Urine Urobilinogen Negative (Negative) 10/02/24 23:35 Ur Leukocyte Esterase 1+ (Negative) H 10/02/24 23:35 Urine RBC 0-2 /hpf (0-2) 10/02/24 23:35 Urine WBC 11-20 /hpf (0-5) H 10/02/24 23:35 Ur Epithelial Cells 11-20 /hpf (0-2) H 10/02/24 23:35 Urine Bacteria None Seen (None Seen) 10/02/24 23:35 Adenovirus (PCR) Not Detected (NotDetected) 10/02/24 20:40 Anaplasma Smear See Comment 10/02/24 20:46 Babesia Smear See Comment 10/02/24 20:46 B. pertussis DNA (PCR) Not Detected (NotDetected) 10/02/24 20:40 B.parapertussis DNA PCR Not Detected (NotDetected) 10/02/24 20:40 Lyme Disease Screen Negative (Negative) 10/02/24 20:46 C. pneumoniae DNA (PCR) Not Detected (NotDetected) 10/02/24 20:40 Coronavirus OC43 (PCR) Not Detected (NotDetected) 10/02/24 20:40 Coronavirus HKU1 (PCR) Not Detected (NotDetected) 10/02/24 20:40 Coronavirus 229E (PCR) Not Detected (NotDetected) 10/02/24 20:40 SARS-CoV-2 (PCR) Not Detected (NotDetected) 10/02/24 20:40 Coronavirus NL63 (PCR) Not Detected (NotDetected) 10/02/24 20:40 Human Metapneumovir PCR Not Detected (NotDetected) 10/02/24 20:40 Influenza Type A (PCR) Not Detected (NotDetected) 10/02/24 20:40 Influenza Type B (PCR) Not Detected (NotDetected) 10/02/24 20:40 M. pneumoniae (PCR) Not Detected (NotDetected) 10/02/24 20:40 Parainfluenza 1 (PCR) Not Detected (NotDetected) 10/02/24 20:40 Parainfluenza 2 (PCR) Not Detected (NotDetected) 10/02/24 20:40 Parainfluenza 3 (PCR) Not Detected (NotDetected) 10/02/24 20:40 Parainfluenza 4 (PCR) Not Detected (NotDetected) 10/02/24 20:40 RSV (PCR) Not Detected (NotDetected) 10/02/24 20:40 Entero/Rhino (PCR) Not Detected (NotDetected) 10/02/24 20:40 Impressions Chest X-Ray 10/02/24 23:52 EXAM: XR chest 1V portable CLINICAL HISTORY: FEVERISH, BODYACHES WTW TECHNIQUE: X-ray image of the chest is obtained in AP portable projection. COMPARISON: No prior studies are available for comparison. FINDINGS: Rotation of patient. Pulmonary Parenchyma: Right perihilar opacification could be projectional. No consolidation, pneumothorax. The focal nodular opacity. No evidence of pleural effusion or pleural thickening. Heart and Mediastinum: Cardiomegaly. Possible hiatal hernia. Bony Thorax: The bony thorax appears intact without fractures or deformities. Large left cervical rib. Soft Tissues: A suspicious lucent is seen under the left diaphragm. IMPRESSION: 1. Cardiomegaly. 2. Mild perihilar pulmonary congestion. 3. A suspicious lucent is seen under the left diaphragm, possibly mild free gas under the diaphragm/bowel gases however further evaluation and confirmation are suggested if clinically indicated. 4. Possible hiatal hernia. [facility] ER was called at [phone] at 11:51 AM MYSQL DBA on 10/02/2024 and results were verbally communicated with Prakash Negron. Electronically signed by Bulmaro Bradley 10-03-2024 12:57 AM Abdomen/Pelvis CT 10/03/24 00:55 EXAM: CT abd pelvis IV con only CLINICAL HISTORY: feverish, bodyaches, uti 91 cc opti 320 TECHNIQUE: CT of the abdomen and pelvis was performed with 92ml of Opitray-320mg/ml contrast, with the following protocol: axial images with, and reconstructed coronal and sagittal images. One of the following dose reduction techniques was utilized for this exam: Automated exposure control, adjustment of the mA and/or kV according to patient size, and use of iterative reconstruction. COMPARISON: No prior studies available for comparison. FINDINGS: Abdomen: Liver: Normal in size, shape, and density. No focal lesions, cysts, or masses were identified. Hepatic vasculature and biliary ducts are unremarkable. Gallbladder and Biliary System: Post cholecystectomy status. The common bile duct is normal in caliber without dilation. Pancreas: Pancreatic head, body, and tail are visualized and appear normal in size and density. No pancreatic masses or calcifications were noted. The pancreatic duct is not dilated. Spleen: Normal in size, shape, and density. No splenic lesions or masses were identified. Kidneys and Adrenal Glands: Both kidneys are normal in size, shape, and position. Bilateral simple renal cysts are noted. Cortical thickness is within normal limits. No renal calculi or hydronephrosis. A hypodense nodule is noted in the left suprarenal gland, measures 6x7x6 mm. The right adrenal gland is unremarkable with no evidence of masses or hyperplasia. Pelvis: Urinary Bladder: Normal in contour and wall thickness. No intraluminal lesions were identified. Uterus: Post hysterectomy status with clear surgical bed. Ovaries: Not well visualized but no gross abnormalities were noted. Vagina: Normal in contour and wall thickness. A large hiatus para esophageal hernia is noted in the posterior mediastinum. Peritoneal and Retroperitoneal Structures: No free fluid or abnormal fluid collections were identified within the abdomen or pelvis. No lymphadenopathy was noted. Bowel: The visualized bowel loops are normal in caliber and appearance. No evidence of bowel obstruction or wall thickening. No appendicular lesions. 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 Umbilical hernia containg fat. Atherosclerotic vascular calcifications. IMPRESSION: 1. A large hiatus para esophageal hernia is noted in the posterior mediastinum. 2. Bilateral simple renal cysts are noted, Bosniak class I. 3. A hypodense nodule is noted in the left suprarenal gland, measures 6x7x6 mm. 4. Post hysterectomy and cholecystectomy status with clear surgical beds. 5. Umbilical hernia containg fat. 6. 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 7. Atherosclerotic vascular calcifications. Electronically signed by Bulmaro Bradley 10-03-2024 02:30 AM ECG Additional Comments: ECG normal sinus rhythm with sinus arrhythmia rate of 81. Left axis deviation. Left bundle branch block. Code Status & VTE Plan VTE Prophylaxis Plan VTE Prophylaxis will be ordered: Yes
[2024-10-03] MEDS ORDERED: GLUCOSE 40% GEL 15 GM TUBE PO PRN (06:23)
[2024-10-03] MEDS ORDERED: VANCOMYCIN CONSULT ACTIVE PRN (06:23)
[2024-10-03] MEDS ORDERED: CARBOHYDRATES FOR HYPOGLYCEMIA PO PRN (06:23)
[2024-10-03] MEDS ORDERED: GLUCAGON FOR INJ 1 MG VIAL SQ PRN (06:23)
[2024-10-03] MEDS ORDERED: DEXTROSE 50% 50 ML SYRINGE IV PRN (06:23)
[2024-10-03] MEDS ORDERED: GLUCOSE 10 TAB/TUBE PO PRN (06:23)
[2024-10-03] MEDS ORDERED: VANCOMYCIN HCL 1,000 MG/270 ML BAG IV SCH (06:23)
[2024-10-03] MEDS ORDERED: POLYETHYLENE (MIRALAX) 17 GM PACK PO PRN (06:23)
[2024-10-03] MEDS: VANCOMYCIN HCL 1,750 MG in SODIUM CHLORIDE 0.9% 500 ML IV ONE (06:46)
[2024-10-03] MEDS: INSULIN ASPART PER UNIT CHARGE SC SCH ×2 (06:48→16:52)
--- NOTE | 2024-10-03 08:32 | Electrocardiogram Report ---
Test Reason : Blood Pressure : */* mmHG Vent. Rate : 81 BPM Atrial Rate : 81 BPM P-R Int : 150 ms QRS Dur : 152 ms QT Int : 434 ms P-R-T Axes : 22 -50 93 degrees QTcB Int : 504 ms Normal sinus rhythm with PAC followed by change in atrial focus mid-tracing Left axis deviation Left bundle branch block Abnormal ECG No previous ECGs available Confirmed by Levi Haro ([id number]) on 10/03/2024 8:31:42 AM Referred By: REFERRED SELF Confirmed By: Levi Haro
[2024-10-03] MEDS: ACETAMINOPHEN 325 MG TAB PO PRN (08:44)
[2024-10-03 10:15] LABS: Hematocrit (blood only) 35.8 % (37.0-47.0); Hemoglobin 12.3 g/dl (12.0-16.0); Mean Corpuscular Hemoglobin 29.1 pg (25.0-34.0); Mean Corpuscular Hgb Conc 34.4 g/dL (32.0-36.0); Mean Corpuscular Volume 84.6 fL (80.0-100.0); Mean Platelet Volume 10.5 fL (9.4-12.4); Platelet Count 201 K/uL (130-400); RDW Coefficient of Variation 13.8 % (11.5-14.5); RDW Standard Deviation 42.4 fL (36.4-46.3); Red Blood Count 4.23 M/uL (4.20-5.40)
[2024-10-03 10:21] LABS: Estimated Average Glucose 117 mg/dl; Hemoglobin A1C 5.7 % (4.5-5.6)
[2024-10-03 10:36] LABS: Basophils # (auto) 0.01 K/uL (0.00-0.20); Basophils % (auto) 0.1 %; Echinocytes 1+; Immature Granulocytes # (auto) 0.03 K/uL (0.01-0.20); Immature Granulocytes % (auto) 0.3 %; Lymphocytes # (auto) 0.71 K/uL (1.20-3.40); Lymphocytes % (auto) 6.9 %; Monocytes # (auto) 0.19 K/uL (0.11-0.59); Monocytes % (auto) 1.8 %; Neutrophils # (auto) 9.36 K/uL (1.40-6.50); Neutrophils % (auto) 90.9 %; Ovalocytes 1+
[2024-10-03 10:37] LABS: Creatinine Clr Calc Pharmacy 66.9 ml/min; Magnesium 1.7 mg/dl (1.7-2.4); Potassium 3.7 mmol/L (3.5-5.1)
[2024-10-03] MEDS: MAGNESIUM OXIDE 400 MG TAB PO SCH (11:55)
[2024-10-03] MEDS: ATORVASTATIN 40 MG TAB PO SCH (11:55)
[2024-10-03] MEDS: ASPIRIN 81 MG ECTAB PO SCH (11:55)
[2024-10-03] MEDS: LEVOTHYROXINE SODIUM 88 MCG TABLET PO SCH (11:55)
[2024-10-03] MEDS: CITALOPRAM 20 MG TAB PO SCH (11:56)
[2024-10-03] MEDS: GABAPENTIN 300 MG CAP PO SCH (11:56)
[2024-10-03] MEDS: PANTOprazole 40 MG TAB PO SCH (11:56)
[2024-10-03] MEDS: CYANOCOBALAMIN (B-12) 500 MCG TABLET PO SCH (11:56)
[2024-10-03 12:19] LABS: Total Protein CSF 33.3 mg/dl (15-45)
[2024-10-03 12:25] LABS: Appearance CSF Clear; CSF Count Tube # 3; CSF Xanthrochromic No xanthochromia; Color CSF Colorless; Red Blood Cell CSF Manual 0 (0-); White Blood Cell CSF Manual 3 (0-5)
[2024-10-03] MEDS: PERFLUTREN LIPID MICROSPHERE (DEFINITY) IV ONE (12:54)
--- NOTE | 2024-10-03 12:55 | Pharmacy Report ---
Pharmacy PK ABX Note - Date of Service October 03, 2024 - Assessment and Plan Assessment 74 year old F receiving empiric vancomycin/ceftriaxone- polyarthralgia/possible UTI/r/o meningitis. Pertinent microbiologic data includes: CSF culture pending, CSF biofire pending, however Lumbar puncture was after antibiotics. Blood cultures, urine culture pending. Leukocytosis has resolved. afebrile today. Plan Vancomycin * Loading dose: 1750 mg IV x 1 * Maintenance dose: 1000 mg IV every 12 hours * Regimen is predicted to achieve target AUC/TASHA of 400-600 mg/L.hr * Random level to be ordered if vancomycin continued >48 hours Pharmacy will continue to follow and will adjust dose/frequency as necessary. Thank you. Pharmacy has transitioned to AUC monitoring for vancomycin. AUC/TASHA is the preferred PK/PD target and is associated with decreased risk of nephrotoxicity compared to traditional trough targets.
[2024-10-03] MEDS: cefTRIAXone SODIUM 2,000 MG/50 ML BAG IV SCH (13:41)
[2024-10-03 13:52] LABS: Cryptococcus neoformans/ga PCR Not Detected (NotDetected); Cytomegalovirus PCR Not Detected (NotDetected); Enterovirus PCR Not Detected (NotDetected); Escherichia coli K1 PCR Not Detected (NotDetected); Haemophilius influenzae PCR Not Detected (NotDetected); Herpes Simplex Virus 1 PCR Not Detected (NotDetected); Herpes Simplex Virus 2 PCR Not Detected (NotDetected); Human Herpes Virus 6 PCR Not Detected (NotDetected); Human Parechovirus PCR Not Detected (NotDetected); Listeria monocytogenes PCR Not Detected (NotDetected); Neisseria meningitidis PCR Not Detected (NotDetected); Streptococcus agalactiae PCR Not Detected (NotDetected); Streptococcus pneumoniae PCR Not Detected (NotDetected); Varicella Zoster Virus PCR Not Detected (NotDetected)
--- NOTE | 2024-10-03 14:23 | Fluoroscopy Report ---
LUMBAR PUNCTURE UNDER FLUOROSCOPY CLINICAL HISTORY: Neck pain/stiffness; evaluate for meningitis PROCEDURE: Procedure and risks were explained. Informed consent was obtained. A final timeout was com pleted. The patient was placed prone on the fluoroscopic exam table. The lower lumbar region was prep ped and draped in sterile fashion. 1% lidocaine was utilized for skin anesthesia. Utilizing fluoroscopic guidance, a 22-gauge Sprotte spinal needle was advanced into the intrathecal s pace at the L2-3 disc space level. Fluoroscopic spot images were obtained. Approximately 8 mL of moi ar CSF fluid was removed and sent to lab for analysis. The needle was removed and Band-Aid applied. T he patient tolerated the procedure well. Vital signs will be monitored postprocedure. Fluoroscopy time 17 seconds. Study dosed 16.66 mGy. IMPRESSION: Lumbar puncture as above. Performed, dictated, and signed by Mark Oliver PA-C; to be co-signed by Dr. Domingo Lam. Electronically signed by: Domingo Lam M.D. 10/03/2024 4:22 PM
[2024-10-03] MEDS ORDERED: Nursing to Pharmacy Communication SCH (14:45)
--- NOTE | 2024-10-03 15:55 | Communication Note ---
Date of Service: October 03, 2024 Attending addendum: The patient was seen and examined in medical floor. She was admitted with generalized aches and pain and weakness with nonspecific neck pain without any headache and no photophobia and without any significant arthritis involving any of the joints She did not have any fever and/or chills and denies any problem with urine and bowel habit and no nausea and/or vomiting. Has been feeling a lot better since admission and has had LP with his unremarkable for any infection and ordered test results including culture still pending.. Lyme screen is negative and Anaplasma and Babesia are pending. She has been feeling a lot better clinically and will have PT OT evaluation and likely discharge tomorrow Remains hemodynamically stable following LP Antibiotics can be stopped tomorrow on discharge Dr Fátima Friend
[2024-10-03] MEDS: VANCOMYCIN HCL 1,000 MG/270 ML BAG IV SCH (18:15)
--- OUTSIDE RECORDS SUMMARY | 2024-10-03 21:19 | External Medical Summary | Summary of Care ---
Author Name Unknown Organization [facility] Address [address] [place] [address] Phone [phone] Care Team Providers Care Senior Sales Manager Name Role Phone Rajan Joseph DO Primary Care Provider Reason for Referral * Medication Prior Authorization - Closed Specialty Diagnoses / Procedures Referred By Yanet koehler Referred To Contact Diagnoses Diabetic peripheral neuropathy (HCC) Rajan Joseph [address] [place] [address] Referral ID Status Reason Start Date Expiration Date Visits Re quested Visits Authorized [id number] Closed 999 999 Reason for Visit * Reason Onset Date Comments Medication Refill 07/17/2024 Encounter Details Date Type Department Care Team (Late st Contact Info) Description 07/17/2024 Refill Family Medicine [address] [place] [phone] Rajan Joseph [address] [place] [address] Diabetic peripheral neuropathy (HCC) Allergies Active Allergy Reactions Criticality Noted Date Comments Lovastatin Muscle pain Medium 09/22/2006 Metformin 08/19/2018 Diarrhea Niacin Er Flushing Low 08/19/2010 Nsaids Other (Please comment) Medium 10/13/2011 GERD Simvastatin 05/17/2001 elevated LFTs documented as of this encounter (statuses as of 07/17/2024) Medications Medication Sig Dispensed Refills Start Date End Date Status Glucose Blood (ONETOUCH VERIO) STRP Tests blood sugar daily 1 Box Dosing Unit 5 01/11/2017 Active aspirin 81 MG chewable tablet Take 1 Tablet by mouth in the morning. with food.. 100 Tab 5 07/02/2017 Active Vitamin B 12 500 MCG Oral Tablet Take by mouth. Activ e Hydrocortisone 2.5 % External CreamIndications:He morrhoids, external without complications apply to rectal area every 8 hours as needed for irritation. 3.5 g 3 06/05/2022 Active Magnesium 400 MG Oral Tablet Take 1 tablet by mouth daily 1 Tablet 06/05/2022 Active Omeprazole 20 MG Oral Capsule Delayed Release (PriLOSEC)Indicatio ns:Gastroesophageal reflux disease without esophagitis Take 1 Capsule by mouth in the morning. 90 Capsule 3 09/21/2023 Active Citalopram Hydrobromide 20 MG Oral Tablet (CeleXA)Indications :Depression, major Take 1 Tablet by mouth in the morning. 90 Tablet 3 09/21/2023 Active Gabapentin 300 MG Oral Capsule (Neurontin)Indicati ons:Diabetic peripheral neuropathy (HCC) Take 1 Capsule by mouth in the morning and 1 Capsule at noon and 1 Capsule before bedtime. 270 Capsule 1 10/27/2023 Active Atorvastatin Calcium 40 MG Oral Tablet (Lipitor)Indication s:Dyslipidemia, goal LDL below 100 TAKE 1 TABLET DAILY 90 Tablet 3 12/03/2023 Active Levothyroxine Sodium 88 MCG Oral Tablet (Levoxyl) Take 1 Tablet by mouth in the morning. (at least 30 min prior to breakfast or other meds). 90 Tablet 3 02/03/2024 Active valACYclovir HCl 1 GM Oral Tablet (Valtrex)Indication s:H/O cold sores TAKE 2 TABLETS BY MOUTH EVERY 12 HOURS FOR 1 DAY FOR COLD SORES 12 Tablet 3 02/08/2024 Active Scopolamine 1 MG/3DAYS Transdermal Patch 72 Hour (Transderm-Scop)Ind ications:H/O motion sickness Place 1 Patch over 72 hours topically on the skin every 3 days. 4 hours before event. May replace every 3 days. . 8 Patch 06/02/2024 Active Ibuprofen 600 MG Oral Tablet (Motrin)Indications :Primary osteoarthritis of both knees TAKE 1 TABLET BY MOUTH EVERY 6 HOURS NEEDED FOR PAIN (FOR KNEE PAIN). 90 Tablet 1 06/19/2024 Active Ozempic (2 MG/DOSE) 8 MG/3ML Subcutaneous Solution Pen-injector (Semaglutide (2 MG/DOSE))Indication s:Diabetic peripheral neuropathy (HCC) Inject 2 mg under the skin once a week. DX Diabetes E11.9 9 mL 1 07/17/2024 Active Ozempic (2 MG/DOSE) 8 MG/3ML Subcutaneous Solution Pen-injector (Semaglutide (2 MG/DOSE))Indication s:Diabetic peripheral neuropathy (HCC) Inject 2 mg under the skin once a week. 9 mL 1 01/25/2024 Discontinue d(Refill) documented as of this encounter (statuses as of 07/17/2024) Active Problems Problem Noted Date Diagnosed Date Diabetic peripheral neuropathy 10/27/2023 Iron deficiency anemia 06/05/2022 Nonrheumatic aortic valve insufficiency 12/24/19 22 jail current use of therapeutic drug 2020 H/O cold sores 08/19/2018 Primary osteoarthritis of both knees 07/02/2017 Fatty liver 02/14/2017 Gastroesophageal reflux disease without esophagi tis 09/16/2015 Recurrent major depressive disorder, in full rem ission 01/03/2014 Overview: ICD-10 update of inactive term Type 2 diabetes mellitus wit h hemoglobin A1c goal of less than 7.0% 08/04/2012 Overview: ICD-10 update of inactive term Hyperlipidemia with target LDL less than 70 07/25 Osteoarthritis of multiple joints 10/13/2011 Overview: ICD-10 update of inactive term Obesity, Class I, BMI 30.0-34.9 (see actual BMI) 02/19/2011 Acquired hypothyroidism documented as of this encounter (statuses as of 07/17/2024) Resolved Problems Problem Noted Date Diagnosed Date Resolved Date Elevated blood pressure read ing in office without diagnosis of hypertension 02/24/20192018 OA (osteoarthritis) of knee 03/05/2015 07/02/2017 Reflux esophagitis 05/01/2014 5 H. pylori infection 04/09/2014 09/05/20 14 Overview: EGD Hammer toe, acquired 01/03/2014 017 Dyslipidemia, goal to be determined 10/03/2009 10/28/2009 Overview: Per Lipid Taxonomy. OSTEOARTHRITIS LOCALIZED, PRIMARY( Ankle) 05/03/2009 07/02/2017 Slow transit constipation 07/13/2008 Dermatophytosis of nail 07/22/200705/2017 Persistent insomnia 04/18/2007 02/25/20 19 Esophageal reflux 07/21/2006 07/02/2017 Abnormal mammogram 04/19/2006 0 ADVANCE DIRECTIVE INFORMATION 10/23/2005 07/02/2017 Overview: No, Advance Directive brochure given to patient at prior appointment. Alopecia 11/03/2004 07/02/2017 ROTATOR CUFF SYND NOS 05/07/20032017 LOC PRIM [id number] 05/07/200305/2017 Major depressive disorder Overview: ICD-10 update of inactive term Elevated liver enzymes 08/16 Mixed dyslipidemia 9 Overview: Per Lipid Taxonomy. SPRAIN LUMBOSACRAL 8 LUMB-LUMBOSAC DISC DEGEN 05/2017 Benign neoplasm of colon 05/2017 Cystocele, midline 8 Impaired fasting glucose 08/2012 Gastroparesis 02/24/2019 Dyslipidemia, goal LDL below 130 08/04/2012 documented as of this encounter (statuses as of 07/17/2024) Immunizations Name Administration Dates Next Due COVID-19 mRNA, LNP-s, No Pre serve, 2-Dose Series (Hopper) 09/12/2021,01/29/2021,01/08/2021 Covid-19, Mrna, Lnp-s, Pf, B ivalent, 30 Mcg, IM, 12 yrs and above (Hopper) 09/08/2022 Pneumococcal Conjugate Vacc, 13 Valent (Prevnar) 03/05/2015 Pneumococcal Polysaccharide PPV23 (Pneumovax) 08/19/2018,10/04/2012 Season Influenza, Quad, PF, Adjuvanted, 65+ Yrs, IM (FLUAD) 08/20/2020 Seasonal Influenza, PF, 6 M & above, IM , (FluLaval or Fluzone) 08/19/2018,08/17/2017 Seasonal Influenza, Quadriva lent Hd (Fluzone Hd) 09/02/2023,08/28/2022,09/02/2021 Seasonal Influenza, Quadriva lent, No Preserve, IM 09/16/2015 Seasonal Influenza, Trivalen t, (IIV3), with Preserv, (Fluzone) 09/05/2014,07/06/2013,08/03/2012,08/26,08/19/2010,08/16/2009,08/03/2008 ,09/01/2007,08/24/2006 Seasonal Influenza, Trivalen t, Adjuvanted, 65+ YRS, PF, (Fluad) 09/13/2019 TD - Tetanus/Diptheria (ADULT) 11/25/1999 TDAP (age 10 and older)(Boostrix) 06/06/2020 TDAP, Age 7 and older, IM (Adacel) 01/03/2010 Varicella Zoster Vaccine (Adult) 02/02/2013 Zoster Vaccine Recombinant (Shingrix) 11/09/2019 ,05/23/2019 documented as of this encounter Social History Tobacco Use Types Packs/Day Years Used Date Smoking Tobacco: Never Smokeless Tobacco: Never Alcohol Use Standard Drinks/Week Comments Not Currently 0 (1 standard drink = 0.6 oz pur e alcohol) rare PHQ-2 Answer Date Recorded PHQ Adult Total Score 4 10/13/2021 Sex and Gender Information Value Date Recorded Sex Assigned at Female 10/13/2021 2:19 PM EST Gender Identity Female 10/13/2021 2:19 PM EST Sexual Orientation Straight 10/13/2021 2: 19 PM EST Job Start Date Occupation Industry Not on file Not on file Not on file documented as of this encounter Miscellaneous Notes * Telephone Encounter - Rajan Joseph DO - 07/17/2024 12:32 PM EDTSigned Prescriptions: Disp Refills Ozempic (2 MG/DOSE) 8 MG/3ML Subcutaneous *9 mL 1 Sig: Inject 2 mg under the skin once a week. DX Diabetes E11.9 Authorizing Provider: RAJAN JOSEPH * Telephone Encounter - Lena Vargas RN - 07/17/2024 11:42 AM EDTPending Prescriptions: Disp Refills Ozempic (2 MG/DOSE) 8 MG/3ML Subcutaneous *9 mL 1 Sig: Inject 2 mg under the skin once a week. DX Diabetes E11.9 * Telephone Encounter - Shila Espinoza OSA - 07/17/2024 11:02 AM EDT Did you pend patient's preferred pharmacy and medication before forwarding?yes Pharmacy: [facility] Pending Prescriptions: Disp Refills Ozempic (2 MG/DOSE) 8 MG/3ML Subcutaneous*9 mL 1 Sig: Inject 2 mg under the skin once a week. Last Visit: 06/02/2024 (in office), Visit date not found (telemedicine) Next Visit: 01/23/2025 If no future appointments scheduled, and last appointment is greater than a year ago, please schedule patient for a follow-up appointment Last date the medication was ordered: 24 Is this request for a controlled substance?No Urine Drug Screen:No results found for this or any previous visit. Patient Phone Numbers Labs: Lab Results Component Value Date/Time CREAT 0.7 11/19/2023 10:10 AM CREAT 0.9 06/04/2020 12:22 PM CREAT 0.6 (L) 07/27/1996 11:10 AM POTASSIUM 5.1 11/19/2023 10:10 AM POTASSIUM 5.3 (H) 06/04/2020 12:22 PM POTASSIUM 4.4 07/27/1996 11:10 AM TSH 2.82 10/27/2023 03:57 PM TSH 1.12 06/04/2020 12:22 PM TSH <0.03 01/29/1997 01:55 PM LDL 75 10/27/2023 03:57 PM LDL 75 06/04/2020 12:22 PM LDL NOT APPLICABLE 06/04/2020 12:22 PM ALT 25 10/27/2023 03:57 PM ALT 52 (H) 06/04/2020 12:22 PM HGBA1C 6.1 (H) 06/02/2024 11:21 AM HGBA1C 7.1 (H) 08/29/2020 11:15 AM documented in this encounter Plan of Treatment Upcoming Encounters Date Type Department Care Team (Late st Contact Info) Description 11/06/2024 2:00 PM EST Office Visit Audiology [facility] [address] [facility] [place] [address] Coleen Flores Au.D. [address] [place] [address] 01/23/2025 10:30 AM EDT Office Visit Family Medicine [address] [place] [phone] [address] [place] [address] Scheduled Procedures Name Priority Associated Diagnoses Date/Ti me COLONOSCOPY FLEXIBLE PROXIMAL DIAGNOSTIC Recall History of colon polyps Health Maintenance Due Date Last Done Comments Adult Wellness Visit 10/13/2022 10/13/2021 Depression Monitoring 10/13/2022 10/13/2021 DXA Scan 07/08/2023 07/08/2016, 11/26, 04/07/2005 COVID-19 Vaccine ( season) 2024 09/08/2022, 09/12/2021, 01/29/2021, Additional history exists Influenza Vaccine (FLU shot) (#1) 2024 09/02/2023, 09/02/2023, 08/28/2022, Additional history exists Albumin/Creatinine Ratio 10/27/2024 024, 06/05/2022, 06/04/2021, Additional history exists Diabetic Eye Exam 10/27/2024 10/27/2023, , 01/09/2022, Additional history exists TSH 10/27/2024 10/27/2023, 11/25, 12/12/2021, Additional history exists GFR 11/19/2024 11/19/2023, 01/0 12/2023, 09/10/2022, Additional history exists HbA1c 12/03/2024 06/02/2024, 01/0 12/2023, 12/10/2022, Additional history exists Diabetic Foot Exam 06/02/2025 06/02/2024, 0 12/10/2022, 10/13/2021, Additional history exists Colonoscopy 08/04/2027 08/04/2022, 07/25, 04/14/2019, Additional history exists DTap/Tdap Vaccines (3 - Td or Tdap) 06/06/2030 06/06/2020, 01/03/2010, 11/25/1999 Pneumococcal Vaccine: 65+ Years Completed 08/19/2018, 03/05/2015, 10/04/2012 Zoster Vaccines Completed 11/09/2019, 04/26, 02/02/2013 RETIRED - COLONOSCOPY-EVERY 5 YRS AGES 18-100 Discontinued 08/04/2022, 08/04/2022, 04/14/2019, Additional history exists HPV (Gardasil) Vaccine Aged Out No lo nger eligible based on patient's age to complete this topic Hepatitis B Vaccine Aged Out No longe r eligible based on patient's age to complete this topic MENINGOCOCCAL (MENACTRA/MENVEO) Aged Out No longer eligible based on patient's age to complete this topic documented as of this encounter Medical Devices Not on filedocumented as of this encounter Visit Diagnoses Diagnosis Diabetic peripheral neuropathy (HCC) Type II or unspecified type diabetes mellitus with neurological manifestations, not stated as uncontrolled documented in this encounter Care Teams Senior Sales Manager Relationship Specialty Start Date End Date Rajan Joseph DO [address] [place] [address] [place] [address] PCP - General Internal Medicine 07/02/17 documented as of this encounter
--- OUTSIDE RECORDS SUMMARY | 2024-10-03 21:19 | External Medical Summary | Summary of Care ---
Author Name Unknown Organization [facility] Address [address] [place] [address] Phone [phone] Care Team Providers Care Marksmanship Instructor Name Role Phone Liss Penn DO Primary Care Provider Reason for Visit * Reason Onset Date Comments Medication Refill 08/21/2024 Encounter Details Date Type Department Care Team (Late st Contact Info) Description 08/21/2024 Refill Family Medicine [address] [phone] Liss Penn [address] [place] [id number] Diabetic peripheral neuropathy (HCC) Allergies Active Allergy Reactions Criticality Noted Date Comments Lovastatin Muscle pain Medium 09/22/2006 Metformin 08/19/2018 Diarrhea Niacin Er Flushing Low 08/19/2010 Nsaids Other (Please comment) Medium 10/13/2011 GERD Simvastatin 05/17/2001 elevated LFTs documented as of this encounter (statuses as of 08/22/2024) Medications Medication Sig Dispensed Refills Start Date [...] the morning. 90 Tablet 3 09/21/2023 Active Atorvastatin Calcium 40 MG Oral Tablet [...] Diabetes E11.9 9 mL 1 07/17/2024 Active Gabapentin 300 MG Oral Capsule (Neurontin)Indicati ons:Diabetic peripheral neuropathy (HCC) Take 1 Capsule by mouth in the morning and 1 Capsule at noon and 1 Capsule before bedtime. 270 Capsule 1 08/22/2024 Active Gabapentin 300 MG Oral Capsule (Neurontin)Indicati ons:Diabetic peripheral neuropathy (HCC) Take 1 Capsule by mouth in the morning and 1 Capsule at noon and 1 Capsule before bedtime. 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 Alopecia 11/03/2004 07/02/2017 ROTATOR CUFF SYND NOS 05/07/20032017 LOC PRIM [id number] 05/07/20030 05/2017 Major depressive disorder Overview: ICD-10 update of inactive term Elevated liver enzymes 08/16 Mixed dyslipidemia 9 Overview: Per Lipid Taxonomy. SPRAIN LUMBOSACRAL 8 LUMB-LUMBOSAC DISC DEGEN 05/2017 Benign neoplasm of colon 05/2017 Cystocele, midline 8 Impaired fasting glucose 08/2012 Gastroparesis 02/24/2019 Dyslipidemia, goal LDL below 130 08/04/2012 documented as of this encounter (statuses as of 08/22/2024) Immunizations Name Administration Dates Next Due COVID-19 mRNA, LNP-s, No Pre serve, 2-Dose Series (IntroBridge) 09/12/2021,01/29/2021,01/08/2021 Covid-19, Mrna, Lnp-s, Pf, B ivalent, 30 Mcg, IM, 12 yrs and above (Pfizer) 09/08/2022 Pneumococcal Conjugate Vacc, 13 Valent (Prevnar) 03/05/2015 Pneumococcal Polysaccharide PPV23 (Pneumovax) 08/19/2018,10/04/2012 Season Influenza, Quad, PF, Adjuvanted, 65+ Yrs, IM (FLUAD) 08/20/2020 Seasonal Influenza Vac., MDV , IM, 0.5 mL (Fluzone) 09/05/2014,07/06/2013,08/03/2012,08/26,08/19/2010,08/16/2009,08/03/2008 ,09/01/2007,08/24/2006 Seasonal Influenza, PF, 6 M & above, IM , (FluLaval or Fluzone) 08/19/2018,08/17/2017 Seasonal Influenza, Quadriva lent Hd (Fluzone Hd) 09/02/2023,08/28/2022,09/02/2021 Seasonal Influenza, Quadriva lent, No Preserve, IM 09/16/2015 Seasonal Influenza, Trivalen t, Adjuvanted, 65+ YRS, [...] encounter Miscellaneous Notes * Telephone Encounter - Petar Thakur MD - 08/22/2024 8:17 AM EDT Signed Prescriptions: Disp Refills Gabapentin 300 MG Oral Capsule (Neurontin) 270 Ca*1 Sig: Take 1 Capsule by mouth in the morning and 1 Capsule at noon and 1 Capsule before bedtime. Authorizing Provider: PETAR THAKUR * Telephone Encounter - Lena Vargas RN - 08/21/2024 3:38 PM EDTPending Prescriptions: Disp Refills Gabapentin 300 MG Oral Capsule (Neurontin) 270 Ca*1 Sig: Take 1 Capsule by mouth in the morning and 1 Capsule at noon and 1 Capsule before bedtime. * Telephone Encounter - Michelle Rebolledo OSA - 08/21/2024 3:36 PM EDT Did you pend patient's preferred pharmacy and medication before forwarding?yes Pharmacy: [facility] Pending Prescriptions: Disp Refills Gabapentin 300 MG Oral Capsule (Neurontin)270 Ca*1 Sig: Take 1 Capsule by mouth in the morning and 1 Capsule at noon and 1 Capsule before bedtime. Last Visit: 06/02/2024 (in office), Visit date not found (telemedicine) Next Visit: 01/23/2025 If no future appointments scheduled, and last appointment is greater than a year ago, please schedule patient for a follow-up appointment Last date the medication was ordered: 10.27.2023 Is this request for a controlled substance?No [...] 11/06/2024 2:00 PM EST Office Visit Audiology [facility] [address] [facility] [place] [address] Coleen Flores Au.D. [address] [place] [address] 01/23/2025 10:30 AM EDT Office Visit Family Medicine [address] [place] [phone] [address] [place] [address] Scheduled Procedures Name Priority Associated Diagnoses Date/Ti [...] 12/12/2021, Additional history exists GFR 11/19/2024 11/19/2023, 0 12/2023, 09/10/2022, Additional history exists HbA1c 12/03/2024 06/02/2024, 0 12/2023, 12/10/2022, Additional history exists Diabetic Foot [...] uncontrolled documented in this encounter Care Teams Marksmanship Instructor Relationship Specialty Start Date End Date Liss Penn DO [address] [place] [address] [place] [address] PCP - General Internal Medicine 07/02/17 documented as of this encounter
--- OUTSIDE RECORDS SUMMARY | 2024-10-03 21:19 | External Medical Summary | Summary of Care ---
Author Name Unknown Organization [facility] Address [address] [place] [address] Phone [phone] Care Team Providers Care Director Of Primary Name Role Phone Rajan Joseph Primary Care Provider Reason for Visit * Reason Comments eRx-Medication Refill Encounter Details Date Type Department Care Team (Late st Contact Info) Description 09/11/2024 Refill Family Medicine [address] [phone] Nehemiah Lao MD [address] [place] [id number] Depression, major; Gastroesophageal reflux disease without esophagitis Allergies Active Allergy Reactions Criticality Noted Date Comments Lovastatin Muscle pain Medium 09/22/2006 Metformin 08/19/2018 Diarrhea Niacin Er (Antihyperlipidemic) Flushing Low 08/19/2010 Nsaids Other (Please comment) Medium 10/13/2011 GERD Simvastatin 05/17/2001 elevated LFTs documented as of this encounter (statuses as of 09/12/2024) Medications Glucose Blood (ONETOUCH VERIO) STRP Tests blood sugar daily 1 Box Dosing Unit 5 01/12/20 17 Active aspirin 81 MG chewable tablet Take 1 Tablet by mouth in the morning. with food.. 100 Tab 5 07/02/20 17 Active Vitamin B 12 500 MCG Oral Tablet Take by mouth. Active Hydrocortisone 2.5 % External CreamIndications: Hemorrhoids, external without complications apply to rectal area every 8 hours as needed for irritation. 3.5 g 3 06/05/20 22 Active Magnesium 400 MG Oral Tablet Take 1 tablet by mouth daily 1 Tablet 06/05/20 22 Active Atorvastatin Calcium 40 MG Oral Tablet (Lipitor)Indicati ons:Dyslipidemia, goal LDL below 100 TAKE 1 TABLET DAILY 90 Tablet 3 12/03/19 24 Active Levothyroxine Sodium 88 MCG Oral Tablet (Levoxyl) Take 1 Tablet by mouth in the morning. (at least 30 min prior to breakfast or other meds). 90 Tablet 3 02/03/20 24 Active valACYclovir HCl 1 GM Oral Tablet (Valtrex)Indicati ons:H/O cold sores TAKE 2 TABLETS BY MOUTH EVERY 12 HOURS FOR 1 DAY FOR COLD SORES 12 Tablet 3 02/08/20 24 Active Scopolamine 1 MG/3DAYS Transdermal Patch 72 Hour (Transderm-Scop)I ndications:H/O motion sickness Place 1 Patch over 72 hours topically on the skin every 3 days. 4 hours before event. May replace every 3 days. . 8 Patch 06/02/20 24 Active Ibuprofen 600 MG Oral Tablet (Motrin)Indicatio ns:Primary osteoarthritis of both knees TAKE 1 TABLET BY MOUTH EVERY 6 HOURS NEEDED FOR PAIN (FOR KNEE PAIN). 90 Tablet 1 06/19/20 24 Active Ozempic (2 MG/DOSE) 8 MG/3ML Subcutaneous Solution Pen-injector (Semaglutide (2 MG/DOSE))Indicati ons:Diabetic peripheral neuropathy (HCC) Inject 2 mg under the skin once a week. DX Diabetes E11.9 9 mL 1 07/17/20 24 Active Gabapentin 300 MG Oral Capsule (Neurontin)Indica tions:Diabetic peripheral neuropathy (HCC) Take 1 Capsule by mouth in the morning and 1 Capsule at noon and 1 Capsule before bedtime. 270 Capsule 1 08/22/20 24 Active Citalopram Hydrobromide 20 MG Oral Tablet (CeleXA)Indicatio ns:Depression, major TAKE 1 TABLET IN THE MORNING 90 Tablet 2 09/12/20 24 Active Omeprazole 20 MG Oral Capsule Delayed Release (PriLOSEC)Indicat ions:Gastroesopha geal reflux disease without esophagitis TAKE 1 CAPSULE IN THE MORNING 90 Capsule 2 09/12/20 24 Active Omeprazole 20 MG Oral Capsule Delayed Release (PriLOSEC)Indicat ions:Gastroesopha geal reflux disease without esophagitis Take 1 Capsule by mouth in the morning. 90 Capsule 3 09/21/20 23 024 Discontinued Citalopram Hydrobromide 20 MG Oral Tablet (CeleXA)Indicatio ns:Depression, major Take 1 Tablet by mouth in the morning. 90 Tablet 3 09/21/20 23 024 Discontinued documented as of this encounter (statuses as of 09/12/2024) Active Problems Problem Noted Date Diagnosed Date Diabetic peripheral neuropathy 10/27/2023 Iron deficiency anemia 06/05/2022 Nonrheumatic aortic valve insufficiency 12/24/19 22 nursing home current use of therapeutic drug 2020 H/O cold sores 08/19/2018 Primary osteoarthritis of both knees 07/02/2017 Fatty liver 02/14/2017 Gastroesophageal reflux disease without esophagi tis 09/16/2015 Recurrent major depressive disorder, in full rem ission 01/03/2014 Overview (08/17/2017): ICD-10 update of inactive term Type 2 diabetes mellitus wit h hemoglobin A1c goal of less than 7.0% 08/04/2012 Overview (02/18/2016): ICD-10 update of inactive term Hyperlipidemia with target LDL less than 70 07/25 Osteoarthritis of multiple joints 10/13/2011 Overview (07/28/2016): ICD-10 update of inactive term Obesity, Class I, BMI 30.0-34.9 (see actual BMI) 02/19/2011 Acquired hypothyroidism documented as of this encounter (statuses as of 09/12/2024) Resolved Problems Problem Noted Date Diagnosed Date Resolved Date Elevated blood pressure read ing in office without diagnosis of hypertension 02/24/20192018 OA (osteoarthritis) of knee 03/05/2015 07/02/2017 Reflux esophagitis 05/01/2014 5 H. pylori infection 04/09/2014 09/05/20 14 Overview (05/01/2014): EGD Hammer toe, acquired 01/03/2014 017 Dyslipidemia, goal to be determined 10/03/2009 10/28/2009 Overview (10/03/2009): Per Lipid Taxonomy. OSTEOARTHRITIS LOCALIZED, PRIMARY( Ankle) 05/03/2009 07/02/2017 Slow transit constipation 07/13/2008 Dermatophytosis of nail 07/22/200705/2017 Persistent insomnia 04/18/2007 02/25/20 19 Esophageal reflux 07/21/2006 07/02/2017 Abnormal mammogram 04/19/2006 0 ADVANCE DIRECTIVE INFORMATION 10/23/2005 07/02/2017 Overview (10/23/2005): No, Advance Directive brochure given to patient at prior appointment. Alopecia 11/03/2004 07/02/2017 ROTATOR CUFF SYND NOS 05/07/20032017 LOC PRIM [id number] 05/07/200305/2017 Major depressive disorder Overview (08/17/2017): ICD-10 update of inactive term Elevated liver enzymes 08/16 Mixed dyslipidemia 9 Overview (10/03/2009): Per Lipid Taxonomy. SPRAIN LUMBOSACRAL 8 LUMB-LUMBOSAC DISC DEGEN 05/2017 Benign neoplasm of colon 05/2017 Cystocele, midline 8 Impaired fasting glucose 08/2012 Gastroparesis 02/24/2019 Dyslipidemia, goal LDL below 130 08/04/2012 documented as of this encounter (statuses as of 09/12/2024) Immunizations Name Administration Dates Next Due COVID-19 mRNA, LNP-s, No Pre serve, 2-Dose Series ([employer]) 09/12/2021,01/29/2021,01/08/2021 Covid-19, Mrna, Lnp-s, Pf, B ivalent, 30 Mcg, IM, 12 yrs and above ([employer]) 09/08/2022 Pneumococcal Conjugate Vacc, 13 Valent (Prevnar) [...] Recorded PHQ Adult Total Score 4 10/13/2021 Comments No Sex and Gender Information Value Date Recorded Sex Assigned at Female 10/13/2021 2:19 PM EST Legal Sex Female 5:26 AM EST Gender Identity Female 10/13/2021 2:19 PM EST Sexual Orientation Straight 10/13/2021 2: 19 PM EST 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 Industry 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 Start Date Job End 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 Not on file Not on file Not on file Not on file Not on file Not on file Not on file 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 Not on file Not on file Not on malcolm [employer] 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 [employer] Not on file Not on file Not on file documented as of this encounter Miscellaneous Notes * Telephone Encounter - Kenneth Ornelas RPh - 09/12/2024 12:06 PM ESTSigned Prescriptions: Disp Refills Citalopram Hydrobromide 20 MG Oral Tablet *90 Tab*2 Sig: TAKE 1 TABLET IN THE MORNINGAuthorizing Provider: RAJAN JOSEPH User: KENNETH ORNELAS Omeprazole 20 MG Oral Capsule Delayed Rele*90 Cap*2 Sig: TAKE 1 CAPSULE IN THE MORNINGAuthorizing Provider: RAJAN JOSEPH User: KENNETH ORNELAS documented in this encounter Plan of Treatment Upcoming Encounters Date Type Department Care Team (Late st Contact Info) Description 11/06/2024 2:00 PM EST Office Visit Audiology [facility] [address] [facility] [place] [phone] Coleen Flores Au.D. [address] [place] [phone] 01/23/2025 10:30 AM EDT Office Visit Family Medicine [address] [place] [phone] Rajan Joseph [address] [place] [id number] Scheduled Procedures Name Priority Associated Diagnoses Date/Ti [...] as of this encounter Visit Diagnoses Diagnosis Depression, major Major depressive disorder, single episode, unspecified Gastroesophageal reflux disease without esophagitis Esophageal reflux documented in this encounter Care Teams Director Of Primary Relationship Specialty Start Date End Date Rajan Joseph DO [address] [place] [address] [place] [phone] PCP - General Internal Medicine 07/02/17 documented as of this encounter
--- OUTSIDE RECORDS SUMMARY | 2024-10-03 21:20 | External Medical Summary | Summary of Care ---
Author Name Unknown Organization [facility] Address [address] [place] [address] Phone [phone] Care Team Providers Care Disposition Clerk Name Role Phone Liss Penn DO Primary Care Provider [phone] Reason for Referral * Ancillary Services (Within 30 days (routine)) - Authorized Specialty Diagnoses / Procedures Referred By Yanet koehler Referred To Contact Audiology Diagnoses Bilateral hearing loss, unspecified hearing loss type Liss Penn [address] [place] [address] Referral ID Status Reason Start Date Expiration Date Visits Requested Visits Authorized [id number] Authorized Ancillary Services Required 06/02/[phone] Question Answer Referral Priority Within 30 days (routine) Where should this appointment be scheduled? [facility] Reason for Referral: Hearing Loss Is this sudden hearing loss or post chemotherapy hearing loss? No Reason for Visit * Reason Comments Re-Check Pt c/o back pain, howard d MRI; going on a cruise next month, asking for motion sickness patches. Encounter Details Date Type Department Care Team ([facility] Contact Info) Description 06/02/2024 10:30 AM EDT Office Visit Family Medicine [address] [phone] Liss Penn [address] [place] [address] Type 2 diabetes mellitus with hemoglobin A1c goal of less than 7.0% (HCC)*; Diabetic peripheral neuropathy (HCC); Recurrent major depressive disorder, in full remission (HCC); Acquired hypothyroidism; Hyperlipidemia with target LDL less than 70; Iron deficiency anemia, unspecified iron deficiency anemia type; H/O motion sickness; Bilateral hearing loss, unspecified hearing loss type Allergies Active Allergy Reactions Criticality Noted Date Comments Lovastatin Muscle pain Medium 09/22/2006 Metformin 08/19/2018 Diarrhea Niacin Er Flushing Low 08/19/2010 Nsaids Other (Please comment) Medium 10/13/2011 GERD Simvastatin 05/17/2001 elevated LFTs documented as of this encounter (statuses as of 06/02/2024) Medications Medication Sig Dispensed Refills Start Date End Date Status Glucose Blood ([facility] [employer]) STRP Tests blood sugar daily 1 Box Dosing [address] 5 7 Active aspirin 81 MG chewable tablet Take 1 Tablet by mouth in the morning. with food.. 100 Tab 5 7 Active Vitamin B 12 500 MCG Oral Tablet Take by mouth. Activ e Hydrocortisone 2.5 % External CreamIndications:He morrhoids, external without complications apply to rectal area every 8 hours as needed for irritation. 3.5 g 3 2 Active Magnesium 400 MG Oral Tablet Take 1 tablet by mouth daily 1 Tablet 2 Active Omeprazole 20 MG Oral Capsule Delayed Release (PriLOSEC)Indicatio ns:Gastroesophageal reflux disease without esophagitis Take 1 Capsule by mouth in the morning. 90 Capsule 3 3 Active Citalopram Hydrobromide 20 MG Oral Tablet (CeleXA)Indications :Depression, major Take 1 Tablet by mouth in the morning. 90 Tablet 3 3 Active Gabapentin 300 MG Oral Capsule (Neurontin)Indicati ons:Diabetic peripheral neuropathy (HCC) Take 1 Capsule by mouth in the morning and 1 Capsule at noon and 1 Capsule before bedtime. 270 Capsule 1 4 Active Atorvastatin Calcium 40 MG Oral Tablet (Lipitor)Indication s:Dyslipidemia, goal LDL below 100 TAKE 1 TABLET DAILY 90 Tablet 3 4 Active Ozempic (2 MG/DOSE) 8 MG/3ML Subcutaneous Solution Pen-injector (Semaglutide (2 MG/DOSE))Indication s:Diabetic peripheral neuropathy (HCC) Inject 2 mg under the skin once a week. 9 mL 1 4 Active Levothyroxine Sodium 88 MCG Oral Tablet (Levoxyl) Take 1 Tablet by mouth in the morning. (at least 30 min prior to breakfast or other meds). 90 Tablet 3 4 Active valACYclovir HCl 1 GM Oral Tablet (Valtrex)Indication s:H/O cold sores TAKE 2 TABLETS BY MOUTH EVERY 12 HOURS FOR 1 DAY FOR COLD SORES 12 Tablet 3 4 Active Ibuprofen 600 MG Oral Tablet (Motrin)Indications :Primary osteoarthritis of both knees Take 1 Tablet by mouth every 6 hours as needed for Pain (for knee pain). 90 Tablet 1 4 Active Scopolamine 1 MG/3DAYS Transdermal Patch 72 Hour (Transderm-Scop)Ind ications:H/O motion sickness Place 1 Patch over 72 hours topically on the skin every 3 days. 4 hours before event. May replace every 3 days. . 8 Patch 4 Active Apple Cider Vinegar Plus Oral Tablet Take 400 mg by mouth. 2 gummies daily 06/02/20 24 Discontinued Gabapentin 300 MG Oral Capsule (Neurontin)Indicati ons:Diabetic peripheral neuropathy (HCC) Take 1 Capsule by mouth in the morning and 1 Capsule at noon and 1 Capsule before bedtime. 21 Capsule 4 06/02/20 24 Discontinued Hydrocortisone 2.5 % External Cream Apply topically to affected area 3 times a day. To affected area. 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 SPRAIN LUMBOSACRAL 8 LUMB-LUMBOSAC DISC DEGEN 05/2017 Benign neoplasm of colon 05/2017 Cystocele, midline 8 Impaired fasting glucose 08/2012 Gastroparesis 02/24/2019 Dyslipidemia, goal LDL below 130 08/04/2012 documented as of this encounter (statuses as of 06/02/2024) Immunizations Name Administration Dates Next Due COVID-19 mRNA, LNP-s, No Pre serve, 2-Dose Series ([employer]) 09/12/2021,01/29/2021,01/08/2021 Covid-19, Mrna, Lnp-s, Pf, B ivalent, [...] lent, No Preserve, IM 09/16/2015 Seasonal Influenza, Split, I IV3, With Preserve, Inj 09/05/2014,07/06/2013,08/03/2012,08/26,08/19/2010,08/16/2009,08/03/2008 ,09/01/2007,08/24/2006 Seasonal Influenza, Trivalen t, Adjuvanted, 65+ yrs 09/13/2019 TD - Tetanus/Diptheria (ADULT) 11/25/1999 TDAP [...] on file documented as of this encounter Last Filed Vital Signs Vital Sign Reading Time Taken Comments Blood Pressure 124/70 06/02/2024 10:34 AM EDT Pulse 76 06/02/2024 10:34 AM EDT Temperature 36.3 C (97.4 F) 06/02/2024 10:34 AM E DT Respiratory Rate - - Oxygen Saturation 97% 06/02/2024 10:34 AM EDT Inhaled Oxygen Concentration - - Weight 72.3 kg (159 lb 6.4 oz) 06/02/2024 10:34 AM EDT Height - - Body Mass Index 27.36 12/10/2022 10:02 AM EST documented in this encounter Patient Instructions * Patient Instructions* Liss Penn DO - 06/02/2024 11:06 AM EDT I recommend that you get your RSV vaccine at the pharmacy prior to winter. documented in this encounter Progress Notes * Liss Penn DO - 06/02/2024 10:49 AM EDT Subjective: Batsheva Cardenas is a 74 year old female. Chief Complaint Patient presents with Re-Check Pt c/o back pain, had MRI; going on a cruise next month, asking for motion sickness patches. HPI: Batsheva Cardenas presents today for routine follow up. She fell down the stairs on a deck onto her back. Saw Krista for this and had an MRI on Wednesday. No weakness in her legs. Discussed PT vs pain management referral, but she feels it is getting better and would like to just give it more time. She is going on a cruise in June. Is asking for more transdermal scopolamine. Gabapentin is helpful for her neuropathy. Typically takes it twice a day. She hasn't been checking her blood sugars. She has lost a significant amount of weight. Mood is good on celexa. No heartburn since she cut out eating at night. 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 with food.. 100 Tab 5 Vitamin B 12 500 MCG Oral Tablet Take by mouth. Hydrocortisone 2.5 % External Cream apply to rectal area every 8 hours as needed for irritation. 3.5 g 3 Magnesium 400 MG Oral Tablet Take 1 tablet by mouth daily 1 Tablet 0 Omeprazole 20 MG Oral Capsule Delayed Release (PriLOSEC) Take 1 Capsule by mouth in the morning. 90Capsule 3 Citalopram Hydrobromide 20 MG Oral Tablet (CeleXA) Take 1 Tablet by mouth in the morning. 90 Tablet3 Gabapentin 300 MG Oral Capsule (Neurontin) Take 1 Capsule by mouth in the morning and 1 Capsule at noon and 1 Capsule before bedtime. 270 Capsule 1 Atorvastatin Calcium 40 MG Oral Tablet (Lipitor) TAKE 1 TABLET DAILY 90 Tablet 3 Ozempic (2 MG/DOSE) 8 MG/3ML Subcutaneous Solution Pen-injector (Semaglutide (2 MG/DOSE)) Inject 2 mg under the skin once a week. 9 mL 1 Levothyroxine Sodium 88 MCG Oral Tablet (Levoxyl) Take 1 Tablet by mouth in the morning. (at least 30 min prior to breakfast or other meds). 90 Tablet 3 valACYclovir HCl 1 GM Oral Tablet (Valtrex) TAKE 2 TABLETS BY MOUTH EVERY 12 HOURS FOR 1 DAY FOR COLD SORES 12 Tablet 3 Ibuprofen 600 MG Oral Tablet (Motrin) Take 1 Tablet by mouth every 6 hours as needed for Pain (for knee pain). 90 Tablet 1 Apple Cider Vinegar Plus Oral Tablet Take 400 mg by mouth. 2 gummies daily (Patient not taking: Reported on 06/02/2024) Gabapentin 300 MG Oral Capsule (Neurontin) Take 1 Capsule by mouth in the morning and 1 Capsule at noon and 1 Capsule before bedtime. (Patient not taking: Reported on 06/02/2024) 21 Capsule 0 Hydrocortisone 2.5 % External Cream Apply topically to affected area 3 times a day. To affected area. (Patient not taking: Reported on 06/02/2024) 30 g 5 No current facility-administered medications for this visit. Review of patient's allergies indicates: Allergen Reactions Lovastatin Muscle pain Nsaids Other (Please comment) GERD Metformin Diarrhea Simvastatin elevated LFTs Niaspan [Niacin Er] Flushing Objective: BP 124/70 | Pulse 76 | Temp 36.3 C (97.4 F) | Wt 72.3 kg (159 lb 6.4 oz) | SpO2 97% | BMI 27.36kg/m | BSA 1.81 m General: alert, healthy, no distress, well nourished, and well developed Ears: External ears normal, Canals clear, TM's Normal Neck: supple, no adenopathy, thyroid normal size, non-tender, without nodularity Heart: regular rate & rhythm and no murmur Lungs: chest symmetric with normal AP diameter, no chest deformities noted, normal respiratory rateand rhythm, lungs clear to auscultation Abdomen: abdomen soft and non-tender Extremities: no joint deformities, effusion, or inflammation, no edema Neuro Exam: alert & oriented x 3 with fluent speech, no focal motor/sensory deficits, gait normal Skin: skin color, texture, turgor are normal, no rashes or significant lesions ASSESSMENT/PLAN: Type 2 diabetes mellitus with hemoglobin A1c goal of less than 7.0% ([facility]) (Primary) - continue samemeds, update labs. - HEMOGLOBIN A1C; Future; Expected date: 06/02/2024 Diabetic peripheral neuropathy (HCC) - DIABETES FOOT EXAM Recurrent major depressive disorder, in full remission (HCC) - stable on citalopram. Acquired hypothyroidism - continue levothyroxine. Hyperlipidemia with target LDL less than 70 - at goal on atorvastatin Iron deficiency anemia, unspecified iron deficiency anemia type - resolved. H/O motion sickness - Scopolamine 1 MG/3DAYS Transdermal Patch 72 Hour (Transderm-Scop); Place 1 Patch over 72 hours topically on the skin every 3 days. 4 hours before event. May replace every 3 days. . Bilateral hearing loss, unspecified hearing loss type - AUDIOLOGY REFERRAL OP Follow-up: Return in about 6 months (around 12/03/2024). | Check-out note: Labs today. Liss Penn DO * Ananya Peña LPN - 06/02/2024 10:35 AM EDT Socks and Shoes Removed for Annual Diabetic Foot Screening RIGHT FOOT: No Reddened, Cracking, Or Open Areas Noted. RIGHT Dorsalis Pedis Pulse: Palpable RIGHT Posterior Tibial Pulse: Palpable RIGHT Monofilament:Patient reports feeling monofilament pressure on plantar surface of foot LEFT FOOT: No Reddened, Cracking or Open Areas Noted. LEFT Dorsalis Pedis Pulse: Palpable LEFT Posterior Tibial Pulse: Palpable LEFT Monofilament:Patient reports feeling monofilament pressure on plantar surface of foot documented in this encounter Plan of Treatment Upcoming Encounters Date Type Department Care Team (Late st Contact Info) Description 11/06/2024 2:00 PM EST Office Visit Audiology [facility] [address] [place] [phone] Coleen Flores Au.D. [address] [place] [id number] 01/23/2025 10:30 AM EDT Office Visit Family Medicine [address] [place] [phone] [place] [address] Pending Results Name Type Priority Associated Diagnoses Date /Time HEMOGLOBIN A1C Lab Routine Type 2 diabetes mellitus with hemoglobin A1c goal of less than 7.0% ([facility]) 06/02/2024 11:21 AM EDT Scheduled Orders Name Type Priority Associated Diagnoses Orde r Schedule HEMOGLOBIN A1C Lab Routine Type 2 diabetes mellitus with hemoglobin A1c goal of less than 7.0% ([facility]) Expected: 06/02/2024 (Approximate), Expires: 06/02/2025 Scheduled Procedures Name Priority Associated Diagnoses Date/Ti me COLONOSCOPY FLEXIBLE PROXIMAL DIAGNOSTIC Recall History of colon polyps Scheduled Referrals Name Type Priority Associated Diagnoses Orde r Schedule AUDIOLOGY REFERRAL OP Referral Within 30 days (routine) Bilateral hearing loss, unspecified hearing loss type Ordered: 06/02/2024 Health Maintenance Due Date Last Done Comments Adult Wellness Visit 10/13/2022 10/13/2021 Depression Monitoring 10/13/2022 10/13/2021 COVID-19 Vaccine ( season) 2023 09/08/2022, 09/12/2021, 01/29/2021, Additional history exists DXA Scan 07/08/2023 07/08/2016, 11/26, 04/07/2005 HbA1c 04/26/2024 10/27/2023, 11/25, 06/05/2022, Additional history exists Influenza Vaccine (FLU shot) (#1) 2024 09/02/2023, 09/02/2023, 08/28/2022, Additional history exists Albumin/Creatinine Ratio 10/27/2024 024, 06/05/2022, 06/04/2021, Additional history exists Diabetic Eye Exam 10/27/2024 10/27/2023, , 01/09/2022, Additional history exists TSH 10/27/2024 10/27/2023, 11/25, 12/12/2021, Additional history exists GFR 11/19/2024 11/19/2023, 12/2023, 09/10/2022, Additional history exists Diabetic Foot Exam 06/02/2025 06/02/2024, 0 12/10/2022, 10/13/2021, Additional history exists Colonoscopy 08/04/2027 08/04/2022, 07/25, 04/14/2019, Additional history exists DTaP,Tdap,and Td Vaccines (3 - Td or Tdap) 06/06/2030 [...] as of this encounter Visit Diagnoses Diagnosis Type 2 diabetes mellitus with hemoglobin A1c goal of less than 7.0% (HCC)- Primary Diabetic peripheral neuropathy (HCC) Type II or unspecified type diabetes mellitus with neurological manifestations, not stated as uncontrolled Recurrent major depressive disorder, in full remission (HCC) Acquired hypothyroidism Unspecified hypothyroidism Hyperlipidemia with target LDL less than 70 Other and unspecified hyperlipidemia Iron deficiency anemia, unspecified iron deficiency anemia type H/O motion sickness Personal history of other specified diseases Bilateral hearing loss, unspecified hearing loss type documented in this encounter Care Teams Disposition Clerk Relationship Specialty Start Date End Date Liss Penn DO [address] [place] [address] [place] [phone] PCP - General Internal Medicine 07/02/17 documented as of this encounter"
--- OUTSIDE RECORDS SUMMARY | 2024-10-03 21:20 | External Medical Summary | Summary of Care ---
Author Name Unknown Organization [facility] Address [address] [place] [address] Phone [phone] Care Team Providers Care Finisher Denture Name Role Phone Liss Penn Primary Care Provider [phone] Reason for Visit * Reason Comments eRx-Medication Refill Encounter Details Date Type Department Care Team (Late st Contact Info) Description 06/17/2024 Refill Family Medicine [address] [phone] Heide Portillo PA-C [address] [place] [address] [place] [address] Primary osteoarthritis of both knees Allergies Active Allergy Reactions Criticality Noted Date Comments Lovastatin Muscle pain Medium 09/22/2006 Metformin 08/19/2018 Diarrhea Niacin Er Flushing Low 08/19/2010 Nsaids Other (Please comment) Medium 10/13/2011 GERD Simvastatin 05/17/2001 elevated LFTs documented as of this encounter (statuses as of 06/19/2024) Medications Medication Sig Dispensed Refills Start Date [...] COLD SORES 12 Tablet 3 4 Active Scopolamine 1 MG/3DAYS Transdermal Patch 72 Hour (Transderm-Scop)Ind ications:H/O motion sickness Place 1 Patch over 72 hours topically on the skin every 3 days. 4 hours before event. May replace every 3 days. . 8 Patch 4 Active Ibuprofen 600 MG Oral Tablet (Motrin)Indications :Primary osteoarthritis of both knees TAKE 1 TABLET BY MOUTH EVERY 6 HOURS NEEDED FOR PAIN (FOR KNEE PAIN). 90 Tablet 1 4 Active Ibuprofen 600 MG Oral Tablet (Motrin)Indications :Primary osteoarthritis of both knees Take 1 Tablet by mouth every 6 hours as needed for Pain (for knee pain). 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 SPRAIN LUMBOSACRAL 8 LUMB-LUMBOSAC DISC DEGEN 05/2017 Benign neoplasm of colon 05/2017 Cystocele, midline 8 Impaired fasting glucose 08/2012 Gastroparesis 02/24/2019 Dyslipidemia, goal LDL below 130 08/04/2012 documented as of this encounter (statuses as of 06/19/2024) Immunizations Name Administration Dates Next Due COVID-19 mRNA, LNP-s, No Pre serve, 2-Dose Series ([employer]) 09/12/2021,01/29/2021,01/08/2021 Covid-19, Mrna, Lnp-s, Pf, B ivalent, 30 Mcg, IM, 12 yrs and above ([employer]) 09/08/2022 Pneumococcal Conjugate Vacc, 13 Valent (Prevnar) [...] encounter Miscellaneous Notes * Telephone Encounter - Kalen Beltran RPh - 06/19/2024 12:00 PM EDT Signed Prescriptions: Disp Refills Ibuprofen 600 MG Oral Tablet (Motrin) 90 Tab*1 Sig: TAKE 1 TABLET BY MOUTH EVERY 6 HOURS NEEDED FOR PAIN (FOR KNEE PAIN).Authorizing Provider: HEIDE PORTILLO User: KALEN BELTRAN documented in this encounter Plan of Treatment Upcoming Encounters Date Type Department Care Team (Late st Contact Info) Description 11/06/2024 2:00 PM EST Office Visit Audiology [facility] [address] [place] [phone] Coleen Flores Au.D. [address] [place] [phone] 01/23/2025 10:30 AM EDT Office Visit Family Medicine [address] [place] [phone] [address] [place] [address] Scheduled Procedures Name Priority Associated Diagnoses Date/Ti me COLONOSCOPY FLEXIBLE PROXIMAL DIAGNOSTIC Recall History of colon polyps Health Maintenance Due Date Last Done Comments Adult Wellness Visit 10/13/2022 10/13/2021 Depression Monitoring 10/13/2022 10/13/2021 COVID-19 Vaccine ( season) 2023 09/08/2022, 09/12/2021, 01/29/2021, Additional history exists DXA Scan 07/08/2023 07/08/2016, 11/26, 04/07/2005 Influenza Vaccine (FLU shot) (#1) 2024 09/02/2023, 09/02/2023, 08/28/2022, Additional history exists Albumin/Creatinine Ratio 10/27/2024 024, 06/05/2022, 06/04/2021, Additional history exists Diabetic Eye Exam 10/27/2024 10/27/2023, , 01/09/2022, Additional history exists TSH 10/27/2024 10/27/2023, 11/25, 12/12/2021, Additional history exists GFR 11/19/2024 11/19/2023, 12/2023, 09/10/2022, Additional history exists HbA1c 12/03/2024 06/02/2024, 12/2023, 12/10/2022, Additional history exists Diabetic Foot [...] as of this encounter Visit Diagnoses Diagnosis Primary osteoarthritis of both knees Primary localized osteoarthrosis, lower leg documented in this encounter Care Teams Finisher Denture Relationship Specialty Start Date End Date Liss Penn DO [address] [place] [address] [place] [phone] PCP - General Internal Medicine 07/02/17 documented as of this encounter
--- OUTSIDE RECORDS SUMMARY | 2024-10-03 21:20 | External Medical Summary | Summary of Care ---
Author Name Unknown Organization [facility] Address [address] [place] [address] Phone [phone] Care Team Providers Care Planting Machine Operator Name Role Phone Rajan Joseph DO Primary Care Provider Reason for Visit * Reason Onset Date Comments Medication Refill 06/14/2024 Encounter Details Date Type Department Care Team (Late st Contact Info) Description 06/14/2024 Refill Family Medicine [address] [phone] Rajan Joseph [address] [place] [id number] H/O motion sickness Allergies Active Allergy Reactions Criticality Noted Date Comments Lovastatin Muscle pain Medium 09/22/2006 Metformin 08/19/2018 Diarrhea Niacin Er Flushing Low 08/19/2010 Nsaids Other (Please comment) Medium 10/13/2011 GERD Simvastatin 05/17/2001 elevated LFTs documented as of this encounter (statuses as of 06/14/2024) Medications Medication Sig Dispensed Refills Start Date End Date Status Glucose Blood (ONETOUCH VERIO) STRP Tests blood sugar daily 1 Box Dosing Unit 5 01/11/2017 Active aspirin 81 MG chewable tablet Take 1 Tablet by mouth in the morning. with food.. 100 Tab 5 07/02/2017 Active Vitamin B 12 500 MCG Oral Tablet Take by mouth. Active Hydrocortisone 2.5 % External CreamIndications:Hem orrhoids, external without complications apply to rectal area every 8 hours as needed for irritation. 3.5 g 3 06/05/2022 Active Magnesium 400 MG Oral Tablet Take 1 tablet by mouth daily 1 Tablet 06/05/2022 Active Omeprazole 20 MG Oral Capsule Delayed Release (PriLOSEC)Indication s:Gastroesophageal reflux disease without esophagitis Take 1 Capsule by mouth in the morning. 90 Capsule 3 09/21/2023 Active Citalopram Hydrobromide 20 MG Oral Tablet (CeleXA)Indications: Depression, major Take 1 Tablet by mouth in the morning. 90 Tablet 3 09/21/2023 Active Gabapentin 300 MG Oral Capsule (Neurontin)Indicatio ns:Diabetic peripheral neuropathy (HCC) Take 1 Capsule by mouth in the morning and 1 Capsule at noon and 1 Capsule before bedtime. 270 Capsule 1 10/27/2023 Active Atorvastatin Calcium 40 MG Oral Tablet (Lipitor)Indications :Dyslipidemia, goal LDL below 100 TAKE 1 TABLET DAILY 90 Tablet 3 12/03/2023 Active Ozempic (2 MG/DOSE) 8 MG/3ML Subcutaneous Solution Pen-injector (Semaglutide (2 MG/DOSE))Indications :Diabetic peripheral neuropathy (HCC) Inject 2 mg under the skin once a week. 9 mL 1 01/25/2024 Active Levothyroxine Sodium 88 MCG Oral Tablet (Levoxyl) Take 1 Tablet by mouth in the morning. (at least 30 min prior to breakfast or other meds). 90 Tablet 3 02/03/2024 Active valACYclovir HCl 1 GM Oral Tablet (Valtrex)Indications :H/O cold sores TAKE 2 TABLETS BY MOUTH EVERY 12 HOURS FOR 1 DAY FOR COLD SORES 12 Tablet 3 02/08/2024 Active Ibuprofen 600 MG Oral Tablet (Motrin)Indications: Primary osteoarthritis of both knees Take 1 Tablet by mouth every 6 hours as needed for Pain (for knee pain). 90 Tablet 1 04/19/2024 Active Scopolamine 1 MG/3DAYS Transdermal Patch 72 Hour (Transderm-Scop)Tiny cations:H/O motion sickness Place 1 Patch over 72 hours topically on the skin every 3 days. 4 hours before event. May replace every 3 days. . 8 Patch 06/02/2024 Active documented as of this encounter (statuses as of 06/14/2024) Active Problems Problem Noted Date Diagnosed Date Diabetic peripheral neuropathy 10/27/2023 Iron deficiency anemia 06/05/2022 Nonrheumatic aortic valve insufficiency 12/24/19 22 correction current use of therapeutic drug 2020 H/O [...] as of this encounter (statuses as of 06/14/2024) Resolved Problems Problem Noted Date Diagnosed Date [...] Slow transit constipation 07/13/2008 Dermatophytosis of nail 07/22/2007 09/0 05/2017 Persistent insomnia 04/18/2007 02/25/20 19 Esophageal reflux 07/21/2006 07/02/2017 Abnormal mammogram 04/19/2006 0 ADVANCE DIRECTIVE INFORMATION 10/23/2005 07/02/2017 Overview: No, Advance Directive brochure given to patient at prior appointment. Alopecia 11/03/2004 07/02/2017 ROTATOR CUFF SYND NOS 05/07/20032017 LOC PRIM [id number] 05/07/200305/2017 Major depressive disorder Overview: ICD-10 update of inactive term Elevated liver enzymes 08/16 Mixed dyslipidemia 9 Overview: Per Lipid Taxonomy. SPRAIN LUMBOSACRAL 8 LUMB-LUMBOSAC DISC DEGEN 05/2017 Benign neoplasm of colon 05/2017 Cystocele, midline 8 Impaired fasting glucose 08/2012 Gastroparesis 02/24/2019 Dyslipidemia, goal LDL below 130 08/04/2012 documented as of this encounter (statuses as of 06/14/2024) Immunizations Name Administration Dates Next Due COVID-19 mRNA, LNP-s, No Pre serve, 2-Dose Series ([employer]) 09/12/2021,01/29/2021,01/08/2021 Covid-19, Mrna, Lnp-s, Pf, B ivalent, [...] Telephone Encounter - Rajan Joseph DO - 06/14/2024 1:05 PM EDT This was prescribed for an upcoming cruise. Does not need refilled. * Telephone Encounter - Rajan Joseph DO - 06/14/2024 1:05 PM EDTRefused Prescriptions: Disp Refills Scopolamine 1 MG/3DAYS Transdermal Patch 7*8 Patch0 Sig: Place 1 Patch over 72 hours topically on the skin every 3 days. 4 hours before event. May replace every 3 days. . Refused By: RAJAN JOSEPH Reason for Refusal: Other (comment below) * Telephone Encounter - Ananya Peña LPN - 06/14/2024 10:18 AM EDTPending Prescriptions: Disp Refills Scopolamine 1 MG/3DAYS Transdermal Patch 7*8 Patch0 Sig: Place 1 Patch over 72 hours topically on the skin every 3 days. 4 hours before event. May replace every 3 days. . * Telephone Encounter - Sachi Monroy OSA - 06/14/2024 8:17 AM EDT Did you pend patient's preferred pharmacy and medication before forwarding?yes Pharmacy: [id number] [id number] [facility] Pending Prescriptions: Disp Refills Scopolamine 1 MG/3DAYS Transdermal Patch *8 Patch0 Sig: Place 1 Patch over 72 hours topically on the skin every 3 days. 4 hours before event. May replace every 3 days. . Last Visit: 06/02/2024 (in office), Visit date not found (telemedicine) Next Visit: 01/23/2025 If no future appointments scheduled, and last appointment is greater than a year ago, please schedule patient for a follow-up appointment Last date the medication was ordered: 06/02/24 Is this request for a controlled substance?No [...] 12:22 PM TSH <0.03 01/29/1997 01:55 PM LDLCALC 75 10/27/2023 03:57 PM LDLCALC 75 06/04/2020 12:22 PM LDLDIRECT 75 06/04/2021 10:55 AM LDLDIRECT NOT APPLICABLE 06/04/2020 12:22 PM LDLDIRECT 174 (H) 07/16/2007 08:35 AM ALT 25 10/27/2023 03:57 PM ALT 52 (H) 06/04/2020 12:22 PM HGBA1C 6.1 (H) 06/02/2024 11:21 AM HGBA1C 7.1 (H) 08/29/2020 11:15 AM documented in this encounter Plan of Treatment Upcoming Encounters Date Type Department Care Team (Late st Contact Info) Description 11/06/2024 2:00 PM EST Office Visit Audiology [facility] [address] [facility] [place] [address] Coleen Flores Au.D. [address] [place] [address] 01/23/2025 10:30 AM EDT Office Visit Family Medicine [address] [place] [phone] [place] [address] Scheduled Procedures Name Priority Associated Diagnoses Date/Ti [...] as of this encounter Visit Diagnoses Diagnosis H/O motion sickness Personal history of other specified diseases documented in this encounter Care Teams Planting Machine Operator Relationship Specialty Start Date End Date Rajan Joseph DO [address] [place] [address] [place] [address] PCP - General Internal Medicine 07/02/17 documented as of this encounter
--- OUTSIDE RECORDS SUMMARY | 2024-10-03 21:20 | External Medical Summary | Summary of Care ---
Author Name Unknown Organization [facility] Address [address] [place] [address] Phone [phone] Care Team Providers Care Structural Layout Worker Name Role Phone Liss Penn Primary Care Provider [phone] Reason for Visit * Reason Onset Date Comments Appointment 05/05/2024 MRI L SPINE Encounter Details Date Type Department Care Team (Late st Contact Info) Description 05/05/2024 Telephone Family Medicine [address] [place] [address] Krista Sierra PA-C [address] [place] [address] [place] [address] Appointment (MRI L SPINE) Allergies Active Allergy Reactions Criticality Noted Date Comments Lovastatin Muscle pain Medium 09/22/2006 Metformin 08/19/2018 Diarrhea Niacin Er Flushing Low 08/19/2010 Nsaids Other (Please comment) Medium 10/13/2011 GERD Simvastatin 05/17/2001 elevated LFTs documented as of this encounter (statuses as of 05/09/2024) Medications Medication Sig Dispensed Refills Start Date End Date Status Glucose Blood (ONETOUCH VERIO) STRP Tests blood sugar daily 1 Box Dosing Unit 5 01/11/2017 Active aspirin 81 MG chewable tablet Take 1 Tablet by mouth in the morning. with food.. 100 Tab 5 07/02/2017 Active Vitamin B 12 500 MCG Oral Tablet Take by mouth. Active Apple Cider Vinegar Plus Oral Tablet Take 400 mg by mouth. 2 gummies daily Active Hydrocortisone 2.5 % External CreamIndications:Hem orrhoids, [...] before bedtime. 270 Capsule 1 10/27/2023 Active Gabapentin 300 MG Oral Capsule (Neurontin)Indicatio ns:Diabetic peripheral neuropathy (HCC) Take 1 Capsule by mouth in the morning and 1 Capsule at noon and 1 Capsule before bedtime. 21 Capsule 11/05/2023 Active Atorvastatin Calcium 40 MG Oral Tablet [...] COLD SORES 12 Tablet 3 02/08/2024 Active Hydrocortisone 2.5 % External Cream Apply topically to affected area 3 times a day. To affected area. 30 g 5 04/19/2024 Active Ibuprofen 600 MG Oral Tablet (Motrin)Indications: Primary osteoarthritis of both knees Take 1 Tablet by mouth every 6 hours as needed for Pain (for knee pain). 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 Alopecia 11/03/2004 07/02/2017 ROTATOR CUFF SYND NOS 05/07/20032017 LOC PRIM [id number] 05/07/200305/2017 Major depressive disorder Overview: ICD-10 update of inactive term Elevated liver enzymes 08/16 Mixed dyslipidemia 9 Overview: Per Lipid Taxonomy. SPRAIN LUMBOSACRAL 8 LUMB-LUMBOSAC DISC DEGEN 05/2017 Benign neoplasm of colon 05/2017 Cystocele, midline 8 Impaired fasting glucose 08/2012 Gastroparesis 02/24/2019 Dyslipidemia, goal LDL below 130 08/04/2012 documented as of this encounter (statuses as of 05/09/2024) Immunizations Name Administration Dates Next Due COVID-19 mRNA, LNP-s, No Pre serve, 2-Dose Series ([employer]) 09/12/2021,01/29/2021,01/08/2021 Covid-19, Mrna, Lnp-s, Pf, B ivalent, 30 Mcg, IM, 12 yrs and above ([employer]) 09/08/2022 Pneumococcal Conjugate Vacc, 13 Valent (Prevnar) 03/05/2015 Pneumococcal Polysaccharide PPV23 (Pneumovax) 08/19/2018,10/04/2012 Season Influenza, Quad, PF, Adjuvanted, 65+ Yrs, IM (FLUAD) 08/20/2020 Seasonal Influenza, PF, 6 M & above, IM , (FluLaval or Fluzone) 08/19/2018,08/17/2017 Seasonal Influenza, Quadriva lent Hd (Fluzone Hd) 09/02/2023,08/28/2022,09/02/2021 Seasonal Influenza, Quadriva lent, No Preserve, IM 09/16/2015 Seasonal Influenza, Split, I IV3, With Preserve, Inj 09/05/2014,07/06/2013,08/03/2012,11/2010,08/19/2010,08/16/2009,08/03/20 08,09/01/2007,08/24/2006,09/11/2005,1 10/30/2002,09/11/2002,09/19/2001 08/30/2004 Seasonal Influenza, Trivalen t, Adjuvanted, 65+ yrs [...] encounter Miscellaneous Notes * Telephone Encounter - Dewey Tomlinson OSA - 05/09/2024 10:38 AM EDT I spoke to pt. She is scheduled and aware. Pt chose date of 05/29/24 * Telephone Encounter - Dewey Tomlinson OSA - 05/08/2024 10:25 AM EDT I called pt, left another message on her vm to call me back * Telephone Encounter - Dewey Tomlinson OSA - 05/05/2024 2:56 PM EDT I called pt , left message to call me back to schedule the MRI L spine. documented in this encounter Plan of Treatment Upcoming Encounters Date Type Department Care Team (Late st Contact Info) Description 05/29/2024 3:15 PM EDT Imaging Radiology [address] [place] [address] 06/02/2024 10:30 AM EDT Office Visit Family Medicine [address] [place] [phone] [place] [address] Scheduled Procedures Name Priority Associated Diagnoses Date/Ti me COLONOSCOPY FLEXIBLE PROXIMAL DIAGNOSTIC Recall History of colon polyps Health Maintenance Due Date Last Done Comments Depression Monitoring 10/13/2022 10/13/2021 COVID-19 Vaccine ( season) 2023 09/08/2022, 09/12/2021, 01/29/2021, Additional history exists DXA Scan 07/08/2023 07/08/2016, 11/26, 04/07/2005 Diabetic Foot Exam 12/10/2023 12/10/2022, 1 12/14/2020, 12/05/2020, Additional history exists HbA1c 04/26/2024 10/27/2023, 11/25, 06/05/2022, Additional history exists Influenza Vaccine (FLU shot) (#1) 2024 09/02/2023, 08/28/2022, 09/02/2021, Additional history exists Albumin/Creatinine Ratio 10/27/2024 024, 06/05/2022, 06/04/2021, Additional history exists Diabetic Eye Exam 10/27/2024 10/27/2023, , 01/09/2022, Additional history exists TSH 10/27/2024 10/27/2023, 11/25, 12/12/2021, Additional history exists GFR 11/19/2024 11/19/2023, 12/2023, 09/10/2022, Additional history exists Colonoscopy 08/04/2027 08/04/2022, 07/25, [...] Not on filedocumented as of this encounter Care Teams Structural Layout Worker Relationship Specialty Start Date End Date Liss Penn DO [address] [place] [address] [place] [address] PCP - General Internal Medicine 07/02/17 documented as of this encounter
--- OUTSIDE RECORDS SUMMARY | 2024-10-03 21:20 | External Medical Summary | Summary of Care ---
Author Name Unknown Organization [facility] Address [address] [place] [address] Phone [phone] Care Team Providers Care Tape Keller Operator Name Role Phone Liss Penn Primary Care Provider [phone] Reason for Visit * Reason Comments Outpatient Testing Encounter Details Date Type Department Care Team (Late st Contact Info) Description 06/02/2024 11:30 AM EDT Laboratory Laboratory [address] [place] [phone] [place] [address] Type 2 diabetes mellitus with hemoglobin A1c goal of less than 7.0% ([facility]) Allergies Active Allergy Reactions Criticality Noted Date [...] 06/05/2022 Nonrheumatic aortic valve insufficiency 12/24/19 22 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 [...] ROTATOR CUFF SYND NOS 05/07/20032017 LOC PRIM [id number] 05/07/2003 09/0 05/2017 Major depressive disorder Overview: [...] mRNA, LNP-s, No Pre serve, 2-Dose Series ([email or web address]) 09/12/2021,01/29/2021,01/08/2021 Covid-19, Mrna, Lnp-s, Pf, B ivalent, 30 Mcg, IM, 12 yrs and above ([email or web address]) 09/08/2022 Pneumococcal Conjugate Vacc, 13 Valent (Prevnar) [...] on file documented as of this encounter Plan of Treatment Upcoming Encounters Date Type Department Care Team (Late st Contact Info) Description 11/06/2024 2:00 PM EST Office Visit Audiology [facility] [address] [facility] [place] [address] Coleen Flores Au.D. [address] [place] [address] 01/23/2025 10:30 AM EDT Office Visit Family Medicine [address] [place] [phone] Liss Penn [address] [place] [address] Pending Results Name Type Priority Associated Diagnoses Date /Time HEMOGLOBIN A1C Lab Routine Type 2 diabetes mellitus with hemoglobin A1c goal of less than 7.0% ([facility]) 06/02/2024 11:21 AM EDT Scheduled Procedures Name Priority Associated Diagnoses Date/Ti [...] A1c goal of less than 7.0% (HCC) documented in this encounter Care Teams Tape Keller Operator Relationship Specialty Start Date End Date Liss Penn DO [address] [place] [address] [place] [phone] PCP - General Internal Medicine 07/02/17 documented as of this encounter
--- OUTSIDE RECORDS SUMMARY | 2024-10-03 21:20 | External Medical Summary | Summary of Care ---
Author Name Unknown Organization [facility] Address [address] [place] [address] Phone [phone] Care Team Providers Care Senior Product Manager Name Role Phone Liss Penn DO Primary Care Provider Reason for Visit * Reason Onset Date Comments Health Maintenance 05/08/2024 Encounter Details Date Type Department Care Team (Late st Contact Info) Description 05/08/2024 Telephone Family Medicine [address] [phone] Liss Penn DO [address] [place], [place] [address] [address] Health Maintenance Allergies Active Allergy Reactions Criticality Noted Date Comments Lovastatin Muscle pain Medium 09/22/2006 Metformin 08/19/2018 Diarrhea Niacin Er Flushing Low 08/19/2010 Nsaids Other (Please comment) Medium 10/13/2011 GERD Simvastatin 05/17/2001 elevated LFTs documented as of this encounter (statuses as of 05/08/2024) Medications Medication Sig Dispensed Refills Start Date [...] as of this encounter (statuses as of 05/08/2024) Active Problems Problem Noted Date Diagnosed Date Diabetic peripheral neuropathy 10/27/2023 Iron deficiency anemia 06/05/2022 Nonrheumatic aortic valve insufficiency 12/24/19 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 SPRAIN LUMBOSACRAL 8 LUMB-LUMBOSAC DISC DEGEN 05/2017 Benign neoplasm of colon 05/2017 Cystocele, midline 8 Impaired fasting glucose 08/2012 Gastroparesis 02/24/2019 Dyslipidemia, goal LDL below 130 08/04/2012 documented as of this encounter (statuses as of 05/08/2024) Immunizations Name Administration Dates Next Due COVID-19 mRNA, LNP-s, No Pre serve, 2-Dose Series ([employer]) 09/12/2021,01/29/2021,01/08/2021 Covid-19, Mrna, Lnp-s, Pf, B ivalent, 30 Mcg, IM, 12 yrs and above ([employer]) 09/08/2022 Pneumococcal Conjugate Vacc, 13 Valent (Prevnar) [...] encounter Miscellaneous Notes * Telephone Encounter - Maria Elena SparksWIL - 05/08/2024 3:34 PM EDT Care Gaps Comprehensive Care Outreach Last Office/Telemedicine Visit: 04/19/2024 (in office), Visit date not found (telemedicine) Next Office Visit: 06/02/2024 Hemoglobin AIC Results: Lab Results Component Value Date/Time HEMOGLOBIN A1C - [facility] 6.4 (H) 10/27/2023 03:57 PM HEMOGLOBIN A1C - [facility] 6.2 (H) 12/10/2022 10:36 AM HEMOGLOBIN A1C - [facility] 6.3 (H) 06/05/2022 10:41 AM HEMOGLOBIN A1C - [facility] 7.1 (H) 08/29/2020 11:15 AM HEMOGLOBIN A1C - [facility] 7.8 (H) 06/04/2020 12:22 PM HEMOGLOBIN A1C - [facility] 7.2 (H) 09/13/2019 08:59 AM BP Readings from Last 1 Encounters: 04/19/24 120/70 Reviewed Health Maintenance below: Health Maintenance Topic Date Due Depression Monitoring 10/13/2022 COVID-19 Vaccine ( season) 2023 DXA Scan 07/08/2023 Diabetic Foot Exam 12/10/2023 HbA1c 04/26/2024 Influenza Vaccine (FLU shot) (1) 06/25/2024 Dexa Lab defer to pcp Care Gap Outreach Action Taken: Left message documented in this encounter Plan of Treatment Upcoming Encounters Date Type Department Care Team (Late st Contact Info) Description 06/02/2024 10:30 AM EDT Office Visit Family Medicine [address] [place] [phone] [address] [place] [address] Scheduled Procedures Name Priority Associated Diagnoses Date/Ti [...] filedocumented as of this encounter Care Teams Senior Product Manager Relationship Specialty Start Date End Date Liss Penn DO [address] [place] [address] [place] [phone] PCP - General Internal Medicine 07/02/17 documented as of this encounter
--- OUTSIDE RECORDS SUMMARY | 2024-10-03 21:20 | External Medical Summary ---
Author Name Unknown Address Unknown Organization K01:[facility] [address] [facility] [address] Laboratory Report Ordering Provider Test Date Status JAKE TOLENTINO 06/02/2024 11:21:47 Final Observation Date Value Abnormality Reference (Units ) Status HbA1C 06/02/2024 11:21:47 6.1 Above high normal 4. 0-5.6 (%) Final The use of HbA1c to monitor glycemic status is based on normal hemoglobin and HbA composition. This test should not be used in patients with abnormal hemoglobin that affects the half life of the red blood cell or the in vivo glycation rates. Glucose, estimated average 06/02/2024 11:21:47 128 Above high normal <126 (mg/dL) Kamaljit hernandez Performing Location [facility] [address] [facility] [address]
--- OUTSIDE RECORDS SUMMARY | 2024-10-03 21:21 | External Medical Summary | Summary of Care ---
Author Name Unknown Organization [facility] Address [address] [place] [address] Phone [phone] Care Team Providers Care Supervisory Forester Name Role Phone Liss Penn Primary Care Provider Reason for Visit * Reason Onset Date Comments Advice 04/24/2024 Encounter Details Date Type Department Care Team (Late st Contact Info) Description 04/24/2024 Telephone Family Medicine [address] [phone] Krista Sierra PA-C [address] [place] [address] [place] [id number] Advice Allergies Active Allergy Reactions Criticality Noted Date Comments Lovastatin Muscle pain Medium 09/22/2006 Metformin 08/19/2018 Diarrhea Niacin Er Flushing Low 08/19/2010 Nsaids Other (Please comment) Medium 10/13/2011 GERD Simvastatin 05/17/2001 elevated LFTs documented as of this encounter (statuses as of 04/26/2024) Medications Medication Sig Dispensed Refills Start Date [...] as of this encounter (statuses as of 04/26/2024) Active Problems Problem Noted Date Diagnosed Date Diabetic peripheral neuropathy 10/27/2023 Iron deficiency anemia 06/05/2022 Nonrheumatic aortic valve insufficiency 12/24/19 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 SPRAIN LUMBOSACRAL 8 LUMB-LUMBOSAC DISC DEGEN 05/2017 Benign neoplasm of colon 05/2017 Cystocele, midline 8 Impaired fasting glucose 08/2012 Gastroparesis 02/24/2019 Dyslipidemia, goal LDL below 130 08/04/2012 documented as of this encounter (statuses as of 04/26/2024) Immunizations Name Administration Dates Next Due COVID-19 mRNA, LNP-s, No Pre serve, 2-Dose Series (MicroCoal) 09/12/2021,01/29/2021,01/08/2021 Covid-19, Mrna, Lnp-s, Pf, B ivalent, 30 Mcg, IM, 12 yrs and above ([employer]Coal) 09/08/2022 Pneumococcal Conjugate Vacc, 13 Valent (Prevnar) [...] encounter Miscellaneous Notes * Telephone Encounter - Tasneem Osorio LPN - 04/26/2024 11:45 AM EDT Pt calling about xray results. Xray still in process. Pt inquiring if anything can be prescribed for pain relief? Please advise. * Telephone Encounter - Flor Kwong LPN - 04/25/2024 9:36 AM EDT Patient calling for results Advised that it been changed to STAT but the results are not available yet She states that her pain continues and the ibuprofen is not touching it Pharm selected. Please advise. Patient would like notified once this has been addressed: Send [employer] message / Call back * Telephone Encounter - Evelina Salcedo RT (R)(M) - 04/24/2024 1:33 PM EDT Xray results are usually received within 7-10 days. Patient's xrays were done 5 days ago. Exam status changed to STAT instead of routine. * Telephone Encounter - Krista Sierra PA-C - 04/24/2024 10:54 AM EDT Can we get a reading on this? * Telephone Encounter - Julia Esposito LPN - 04/24/2024 10:39 AM EDT Patient calling in to check on the status of her back x-ray, she was given a script for Ibuprofen for the pain. She is wanting to know if there is any way to get the x-ray read as it has been almost a week. Please advise documented in this encounter Plan of Treatment Upcoming Encounters Date Type Department Care Team (Late st Contact Info) Description 06/02/2024 10:30 AM EDT Office Visit Family Medicine [address] [place] [phone] Liss Penn [address] [place] [address] Scheduled Procedures Name Priority Associated Diagnoses Date/Ti [...] filedocumented as of this encounter Care Teams Supervisory Forester Relationship Specialty Start Date End Date Liss Penn DO [address] [place] [address] [place] [phone] PCP - General Internal Medicine 07/02/17 documented as of this encounter
--- OUTSIDE RECORDS SUMMARY | 2024-10-03 21:21 | External Medical Summary | Summary of Care ---
Author Name Unknown Organization [facility] Address [address] [place] [address] Phone [phone] Care Team Providers Care Senior Engineering Specialist Name Role Phone Liss Penn Primary Care Provider Reason for Visit * Reason Onset Date Comments Appointment 05/05/2024 MRI L SPINE Encounter Details Date Type Department Care Team (Late st Contact Info) Description 05/05/2024 Telephone Family Medicine [address] [place] [address] Krista Sierra PA-C [address] [place] [address] [place] [address] Appointment (MRI L SPINE) Allergies Active Allergy [...] 06/05/2022 Nonrheumatic aortic valve insufficiency 12/24/19 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 H/O [...] ROTATOR CUFF SYND NOS 05/07/20032017 LOC PRIM [id number] 05/07/200305/2017 Major depressive disorder Overview: ICD-10 update [...] mRNA, LNP-s, No Pre serve, 2-Dose Series ([employer]) 09/12/2021,01/29/2021,01/08/2021 Covid-19, Mrna, Lnp-s, Pf, B ivalent, 30 Mcg, IM, 12 yrs and above ([employer]) 09/08/2022 Pneumococcal Conjugate Vacc, 13 Valent (Prevnar) [...] 10:30 AM EDT Office Visit Family Medicine [address] [place] [phone] [place] [address] Scheduled Procedures Name Priority Associated Diagnoses Date/Ti [...] as of this encounter Care Teams Senior Engineering Specialist Relationship Specialty Start Date End Date Liss Penn DO [address] [place] [address] [place] [id number] PCP - General Internal Medicine 07/02/17 documented as of this encounter
--- OUTSIDE RECORDS SUMMARY | 2024-10-03 21:21 | External Medical Summary | Summary of Care ---
Author Name Unknown Organization [facility] Address [address] [place] [address] Phone [phone] Care Team Providers Care Galley Stripper Name Role Phone Liss Penn Primary Care Provider Reason for Visit * Reason Onset Date Comments Advice 04/24/2024 Encounter Details Date Type Department Care Team (Late st Contact Info) Description 04/24/2024 Telephone Family Medicine [address] [phone] Heide Portillo PA-C [address] [place] [address] [place] [phone] Advice Allergies Active Allergy Reactions Criticality Noted [...] knee pain). 90 Tablet 1 04/19/2024 Active predniSONE 20 MG Oral Tablet (Deltasone)Indicatio ns:Acute bilateral low back pain without sciatica Take 2 Tablets by mouth in the morning for 5 days. 10 Tablet 04/26/2024 4 Active documented as of this encounter (statuses as of 04/26/2024) Active Problems Problem Noted Date Diagnosed Date Diabetic peripheral neuropathy 10/27/2023 Iron deficiency anemia 06/05/2022 Nonrheumatic aortic valve insufficiency 12/24/19 22 [facility] current use of therapeutic drug 2020 H/O [...] ROTATOR CUFF SYND NOS 05/07/20032017 LOC PRIM [id number] 05/07/200305/2017 Major depressive disorder Overview: ICD-10 update [...] mRNA, LNP-s, No Pre serve, 2-Dose Series ([employer]m) 09/12/2021,01/29/2021,01/08/2021 Covid-19, Mrna, Lnp-s, Pf, B ivalent, [...] as of this encounter Miscellaneous Notes * Addendum Note - Heide Portillo PA-C - 04/26/2024 11:55 AM EDTAddended by: HEIDE PORTILLO on: 04/26/2024 11:55 AM Modules accepted: Orders * Telephone Encounter - Heide Portillo PA-C - 04/26/2024 11:54 AM EDT Can try short course of prednisone. This may bump sugars so if they go too high, she can stop the prednisone. * Telephone Encounter - Tasneem Osorio LPN [...] notified once this has been addressed: Send [email or web address] message / Call back * Telephone Encounter - Evelina Salcedo RT (R)(M) - 04/24/2024 1:33 PM EDT Xray results are usually received within 7-10 days. Patient's xrays were done 5 days ago. Exam status changed to STAT instead of routine. * Telephone Encounter - Heide Portillo PA-C - 04/24/2024 10:54 AM EDT Can [...] 10:30 AM EDT Office Visit Family Medicine [address] [place] [phone] [address] [place] [address] Scheduled Procedures Name [...] as of this encounter Visit Diagnoses Diagnosis Acute bilateral low back pain without sciatica- Primary documented in this encounter Care Teams Galley Stripper Relationship Specialty Start Date End Date Liss Penn DO [address] [place] [address] [place] [address] PCP - General Internal Medicine 07/02/17 documented as of this encounter
--- OUTSIDE RECORDS SUMMARY | 2024-10-03 21:21 | External Medical Summary | Summary of Care ---
Author Name Unknown Organization [facility] Address [address] [place] [address] Phone [phone] Care Team Providers Care Senior Bi Developer Name Role Phone Liss Penn Primary Care Provider [phone] Reason for Visit * Reason Onset Date Comments Appointment 05/05/2024 MRI L SPINE Encounter Details Date Type Department Care Team (Late st Contact Info) Description 05/05/2024 Telephone Family Medicine [address] [place] [address] Krista Sierra PA-C [address] [place] [address] [place] [address] Appointment (MRI L SPINE) Allergies Active Allergy Reactions Criticality Noted Date Comments Lovastatin Muscle pain Medium 09/22/2006 Metformin 08/19/2018 Diarrhea Niacin Er Flushing Low 08/19/2010 Nsaids Other (Please comment) Medium 10/13/2011 GERD Simvastatin 05/17/2001 elevated LFTs documented as of this encounter (statuses as of 05/05/2024) Medications Medication Sig Dispensed Refills Start Date [...] as of this encounter (statuses as of 05/05/2024) Active Problems Problem Noted Date Diagnosed Date Diabetic peripheral neuropathy 10/27/2023 Iron deficiency anemia 06/05/2022 Nonrheumatic aortic valve insufficiency 12/24/19 22 long term current use of therapeutic drug 2020 H/O [...] as of this encounter (statuses as of 05/05/2024) Resolved Problems Problem Noted Date Diagnosed Date [...] ROTATOR CUFF SYND NOS 05/07/20032017 LOC PRIM [id number] 05/07/200305/2017 Major depressive disorder Overview: ICD-10 update of inactive term Elevated liver enzymes 08/16 Mixed dyslipidemia 9 Overview: Per Lipid Taxonomy. SPRAIN LUMBOSACRAL 8 LUMB-LUMBOSAC DISC DEGEN 05/2017 Benign neoplasm of colon 05/2017 Cystocele, midline 8 Impaired fasting glucose 08/2012 Gastroparesis 02/24/2019 Dyslipidemia, goal LDL below 130 08/04/2012 documented as of this encounter (statuses as of 05/05/2024) Immunizations Name Administration Dates Next Due COVID-19 mRNA, LNP-s, No Pre serve, 2-Dose Series ([employer]) 09/12/2021,01/29/2021,01/08/2021 Covid-19, Mrna, Lnp-s, Pf, B ivalent, 30 Mcg, IM, 12 yrs and above ([employer]ionics) 09/08/2022 Pneumococcal Conjugate Vacc, 13 Valent (Prevnar) [...] 10:30 AM EDT Office Visit Family Medicine [address] [place] [phone] [address] [place] [address] Scheduled Procedures Name Priority Associated Diagnoses Date/Ti [...] as of this encounter Care Teams Senior Bi Developer Relationship Specialty Start Date End Date Liss Penn DO [address] [place] [address] [place] [phone] PCP - General Internal Medicine 07/02/17 documented as of this encounter
--- OUTSIDE RECORDS SUMMARY | 2024-10-03 21:21 | External Medical Summary | Summary of Care ---
Author Name Unknown Organization [facility] Address [address] [place] [address] Phone [phone] Care Team Providers Care Instructor Modeling Name Role Phone Liss Penn DO Primary Care Provider Reason for Visit * Reason Onset Date Comments Advice 04/17/2024 Encounter Details Date Type Department Care Team ([facility] st Contact Info) Description 04/17/2024 Telephone Family Medicine [address] [phone] Liss Penn [address] [place] [phone] Advice Allergies Active Allergy Reactions Criticality Noted Date Comments Lovastatin Muscle pain Medium 09/22/2006 Metformin 08/19/2018 Diarrhea Niacin Er Flushing Low 08/19/2010 Nsaids Other (Please comment) Medium 10/13/2011 GERD Simvastatin 05/17/2001 elevated LFTs documented as of this encounter (statuses as of 04/17/2024) Medications Medication Sig Dispensed Refills Start Date [...] before bedtime. 270 Capsule 1 10/27/2023 Active Ibuprofen 600 MG Oral Tablet (Motrin)Indications: Primary osteoarthritis of both knees Take 1 Tablet by mouth every 6 hours as needed for Pain (for knee pain). 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 Alopecia 11/03/2004 07/02/2017 ROTATOR CUFF SYND NOS 05/07/20032017 LOC PRIM [id number] 05/07/2003 09/05/2017 Major depressive disorder Overview: ICD-10 update of inactive term Elevated liver enzymes 08/16 Mixed dyslipidemia 9 Overview: Per Lipid Taxonomy. SPRAIN LUMBOSACRAL 8 LUMB-LUMBOSAC DISC DEGEN 05/2017 Benign neoplasm of colon 05/2017 Cystocele, midline 8 Impaired fasting glucose 08/2012 Gastroparesis 02/24/2019 Dyslipidemia, goal LDL below 130 08/04/2012 documented as of this encounter (statuses as of 04/17/2024) Immunizations Name Administration Dates Next Due COVID-19 mRNA, LNP-s, No Pre serve, 2-Dose Series ([employer]) 09/12/2021,01/29/2021,01/08/2021 Covid-19, Mrna, Lnp-s, Pf, B ivalent, 30 Mcg, IM, 12 yrs and above ([employer]) 09/08/2022 Pneumococcal Conjugate Vacc, 13 Valent (Prevnar) [...] encounter Miscellaneous Notes * Telephone Encounter - Lena Vargas RN - 04/17/2024 11:56 AM EDT appt given for 04/19. Pt advised if pain gets worse to gotoER * Telephone Encounter - Lena Vargas RN - 04/17/2024 11:02 AM EDT EAR PROBLEMS: Yes Which ear is bothering you? Right What are your symptoms? Other How long have your ear(s) been bothering you? 6 weeks Pain and/or Headache PAIN: Yes Pain Level: 8/10 Describe the Pain: Other,Throbbing,Tender Location of Pain: left side low back How long has the pain lasted? 04/14/2024 Does the pain radiate? No Is there a clear cause for the pain? Yes Has the pain changed? No Does anything make the pain better? 600 gram ibprofen prescription Does anything make the pain worse? different movement or sitting or bend Additional Comment(s) Additional Comments: fell backwards off steps is having lower back pain, right ear blockage, ear might have hearing aid sponge stuck in ear. * Telephone Encounter - Fatuma Stevenson OSA - 04/17/2024 10:29 AM EDT No Appointments Available Patient declined appointments?: No What Visit Type is needed? Acute If Acute Visit Type is needed, were surrounding clinics offered to patient (Yes/No)? N/A Was patient offered appointments with other available providers (Yes/No)? N/A See Call Details? (Yes or No): Yes documented in this encounter Plan of Treatment Upcoming Encounters Date Type Department Care Team (Late st Contact Info) Description 04/19/2024 10:20 AM EDT Office Visit [address] [phone] Krista Sierra PA-C [address] [place] [address] [place] [id number] 06/02/2024 10:30 AM EDT Office Visit [address] [place] [phone] Liss Penn DO [address] [place] [address] [place] [address] Scheduled Procedures Name Priority Associated Diagnoses Date/Ti [...] 04/26/2024 10/27/2023, 11/25, 06/05/2022, Additional history exists Albumin/Creatinine Ratio 10/27/2024 024, [...] Discontinued 08/04/2022, 08/04/2022, 04/14/2019, Additional history exists Influenza Vaccine (FLU shot) Completed 09/02/2023, 08/28/2022, 09/02/2021, Additional history exists GARDASIL-HPV IMMUNIZATION SERIES Aged Out No longer eligible based on patient's age to complete this topic Hepatitis B Aged Out No longer eligi ble based on patient's age to complete this topic MENINGOCOCCAL (MENACTRA/MENVEO) Aged Out No longer eligible based on patient's age to complete this topic documented as of this encounter Medical Devices Not on filedocumented as of this encounter Care Teams Instructor Modeling Relationship Specialty Start Date End Date Liss Penn DO [address] [place] [address] [place] [phone] PCP - General Internal Medicine 07/02/17 documented as of this encounter
--- OUTSIDE RECORDS SUMMARY | 2024-10-03 21:21 | External Medical Summary | Summary of Care ---
Author Name Unknown Organization [facility] Address [address] [place] [address] Phone [phone] Care Team Providers Care Highballer Name Role Phone Liss Penn Primary Care Provider Reason for Visit * Reason Onset Date Comments Advice 04/24/2024 Encounter Details Date Type Department Care Team (Late st Contact Info) Description 04/24/2024 Telephone Family Medicine [address] [phone] Krista Sierra PA-C [address] [place] [address] [place] [phone] Advice Allergies Active Allergy Reactions Criticality Noted Date Comments Lovastatin Muscle pain Medium 09/22/2006 Metformin 08/19/2018 Diarrhea Niacin Er Flushing Low 08/19/2010 Nsaids Other (Please comment) Medium 10/13/2011 GERD Simvastatin 05/17/2001 elevated LFTs documented as of this encounter (statuses as of 04/25/2024) Medications Medication Sig Dispensed Refills Start Date [...] as of this encounter (statuses as of 04/25/2024) Active Problems Problem Noted Date Diagnosed Date Diabetic peripheral neuropathy 10/27/2023 Iron deficiency anemia 06/05/2022 Nonrheumatic aortic valve insufficiency 12/24/19 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 SPRAIN LUMBOSACRAL 8 LUMB-LUMBOSAC DISC DEGEN 05/2017 Benign neoplasm of colon 05/2017 Cystocele, midline 8 Impaired fasting glucose 08/2012 Gastroparesis 02/24/2019 Dyslipidemia, goal LDL below 130 08/04/2012 documented as of this encounter (statuses as of 04/25/2024) Immunizations Name Administration Dates Next Due COVID-19 mRNA, LNP-s, No Pre serve, 2-Dose Series ([employer]) 09/12/2021,01/29/2021,01/08/2021 Covid-19, Mrna, Lnp-s, Pf, B ivalent, 30 Mcg, IM, 12 yrs and above ([employer]) 09/08/2022 Pneumococcal Conjugate Vacc, 13 Valent (Prevnar) [...] encounter Miscellaneous Notes * Telephone Encounter - Flor Kwong LPN - 04/25/2024 9:36 AM EDT Patient calling for results Advised that it been changed to STAT but the results are not available yet She states that her pain continues and the ibuprofen is not touching it Pharm selected. Please advise. Patient would like notified once this has been addressed: Send [employer] message / Call back * Telephone Encounter [...] 10:30 AM EDT Office Visit Family Medicine [address] [place] [address] [place] [phone] Scheduled Procedures Name Priority Associated Diagnoses Date/Ti [...] Discontinued 08/04/2022, 08/04/2022, 04/14/2019, Additional history exists GARDASIL-HPV IMMUNIZATION SERIES Aged [...] filedocumented as of this encounter Care Teams Highballer Relationship Specialty Start Date End Date Liss Penn DO [address] [place] [address] [place] [address] PCP - General Internal Medicine 07/02/17 documented as of this encounter
--- OUTSIDE RECORDS SUMMARY | 2024-10-03 21:21 | External Medical Summary | Summary of Care ---
Author Name Unknown Organization [facility] Address [address] [place] [address] Phone [phone] Care Team Providers Care Investigation Division Sergeant Name Role Phone Liss Penn DO Primary Care Provider Reason for Visit * Reason Comments Acute Encounter Details Date Type Department Care Team (Latest Contact Info) Description 04/19/2024 10:20 AM EDT Office Visit Family Medicine [address] [phone] Krista Sierra PA-C [address] [place] [address] [place] [address] Acute bilateral low back pain without sciatica*; Primary osteoarthritis of both knees; H/O cold sores; Foreign body of right ear, initial encounter Allergies Active Allergy Reactions Criticality Noted Date Comments Lovastatin Muscle pain Medium 09/22/2006 Metformin 08/19/2018 Diarrhea Niacin Er Flushing Low 08/19/2010 Nsaids Other (Please comment) Medium 10/13/2011 GERD Simvastatin 05/17/2001 elevated LFTs documented as of this encounter (statuses as of 04/19/2024) Medications Medication Sig Dispensed Refills Start Date End Date Status Glucose Blood (ONETOUCH VERIO) STRP Tests blood sugar daily 1 Box Dosing Unit 5 01/11/2017 Active aspirin 81 MG chewable tablet Take 1 Tablet by mouth in the morning. with food.. 100 Tab 5 07/02/2017 Active Vitamin B 12 500 MCG Oral Tablet Take by mouth. Activ e Apple Cider Vinegar Plus Oral Tablet Take 400 mg by mouth. 2 gummies daily Active Hydrocortisone 2.5 % External CreamIndications:He morrhoids, external [...] 10/27/2023 Active Gabapentin 300 MG Oral Capsule (Neurontin)Indicati [...] 04/19/2024 Active Ibuprofen 600 MG Oral Tablet (Motrin)Indications :Primary osteoarthritis of both knees Take 1 Tablet by mouth every 6 hours as needed for Pain (for knee pain). 90 Tablet 1 04/19/2024 Active Ibuprofen 600 MG Oral Tablet (Motrin)Indications :Primary osteoarthritis of both knees Take 1 Tablet by mouth every 6 hours as needed for Pain (for knee pain). 90 Tablet 1 10/27/2023 4 Discontinue d(Refill) documented as of this encounter (statuses as of 04/19/2024) Active Problems Problem Noted Date Diagnosed Date Diabetic peripheral neuropathy 10/27/2023 Iron deficiency anemia 06/05/2022 Nonrheumatic aortic valve insufficiency 12/24/19 22 shelter current use of therapeutic drug 2020 H/O [...] as of this encounter (statuses as of 04/19/2024) Resolved Problems Problem Noted Date Diagnosed Date [...] ROTATOR CUFF SYND NOS 05/07/20032017 LOC PRIM [id number] 05/07/200305/2017 Major depressive disorder Overview: ICD-10 update of inactive term Elevated liver enzymes 08/16 Mixed dyslipidemia 9 Overview: Per Lipid Taxonomy. SPRAIN LUMBOSACRAL 8 LUMB-LUMBOSAC DISC DEGEN 05/2017 Benign neoplasm of colon 05/2017 Cystocele, midline 8 Impaired fasting glucose 08/2012 Gastroparesis 02/24/2019 Dyslipidemia, goal LDL below 130 08/04/2012 documented as of this encounter (statuses as of 04/19/2024) Immunizations Name Administration Dates Next Due COVID-19 mRNA, LNP-s, No Pre serve, 2-Dose Series ([employer]) 09/12/2021,01/29/2021,01/08/2021 Covid-19, Mrna, Lnp-s, Pf, B ivalent, 30 Mcg, IM, 12 yrs and above ([employer]) 09/08/2022 Pneumococcal Conjugate Vacc, 13 Valent (Prevnar) [...] Date Smoking Tobacco: Never Smokeless Tobacco: Never Tobacco Cessation:Counseling Given: Not Answered Alcohol Use Standard Drinks/Week Comments Not Currently [...] Sign Reading Time Taken Comments Blood Pressure 120/70 04/19/2024 10:33 AM EDT Pulse 84 04/19/2024 10:33 AM EDT Temperature 36.8 C (98.2 F) 04/19/2024 10:33 AM E DT Respiratory Rate - - Oxygen Saturation 98% 04/19/2024 10:33 AM EDT Inhaled Oxygen Concentration - - Weight 74.4 kg (164 lb) 04/19/2024 10:33 AM EDT Height - - Body Mass Index 28.15 12/10/2022 10:02 AM EST documented in this encounter Progress Notes * Krista Sierra PA-C - 04/19/2024 10:35 AM EDT Nursing Notes: Kolton Davidjoshua Queen LPN 04/19/24 1035 Signed Chief Complaint Patient presents with Acute Fell on 04/14 going [address] steps and went backwards hitting back on edge of step Taking Ibuprofen Placed Husbands hearing aide in her right ear then when she removed his hearing aid she noticed thetip was missing. She was unable to get Q tip in her ear. Mitchel pain or drainage Duration - 2 mo The patient has been properly identified by confirmation of name and date of . Pt here today with piece of hearing aid stuck in her ear. She put her husbands hearing aid in, about 2 months ago, and when she took it out, she noticed that the tip was missing. Pt denies ear pain, drainage. Pt also fell a few days ago. She slipped on the steps and hit her back on the steps. Pt denies swelling, redness, bruising. Pt denies pain into buttocks or leg. Pt has more pain with movements. It has improved, some. Pt has been taking ibuprofen and it does help. Review of patient's allergies indicates: Allergen Reactions Lovastatin Muscle pain Nsaids Other (Please comment) GERD Metformin Diarrhea Simvastatin elevated LFTs Niaspan [Niacin Er] Flushing Current Outpatient Medications Medication Sig Dispense Refill Glucose Blood (ONETOUCH VERIO) STRP Tests blood sugar daily 1 Box Dosing Unit 5 aspirin 81 MG chewable tablet Take 1 Tablet by mouth in the morning. with food.. 100 Tab 5 Vitamin B 12 500 MCG Oral Tablet Take by mouth. Apple Cider Vinegar Plus Oral Tablet Take 400 mg by mouth. 2 gummies daily Hydrocortisone 2.5 % External Cream apply to [...] 1 Capsule before bedtime. 270 Capsule 1 Ibuprofen 600 MG Oral Tablet (Motrin) Take 1 Tablet by mouth every 6 hours as needed for Pain (for knee pain). 90 Tablet 1 Gabapentin 300 MG Oral Capsule (Neurontin) Take 1 Capsule by mouth in the morning and 1 Capsule at noon and 1 Capsule before bedtime. 21 Capsule 0 Atorvastatin Calcium 40 MG Oral Tablet (Lipitor) [...] DAY FOR COLD SORES 12 Tablet 3 No current facility-administered medications for this visit. Past Medical History: Diagnosis Date Abnormal mammogram 04/19/2006 Benign neoplasm of colon 10/30 cecum - tubular adenoma Cystocele, midline Degeneration of lumbosacral intervertebral disc Depressive disorder, not elsewhere classified Depressive disorder, not elsewhere classified 01/03/2014 DM type 2, goal A1c below 7 08/04/2012 Dyslipidemia, goal LDL below 100 08/04/2012 Dyslipidemia, goal LDL below 130 Elevated blood pressure reading in office without diagnosis of hypertension 02/24/2019 Elevated liver enzymes Fatty liver 02/14/2017 Gastroesophageal reflux disease without esophagitis 09/16/2015 Gastroparesis 06/11/09 H. pylori infection 04/09/14 EGD Hammer toe, acquired 01/03/2014 Herpes zoster 08/10/07 Impaired fasting glucose Mixed dyslipidemia OA (osteoarthritis) of knee 03/05/2015 Obesity, Class I, BMI 30.0-34.9 (see actual BMI) 02/19/2011 Osteoarthrosis involving, or with mention of more than one site, but not specified as generalized, site unspecified(715.80) 10/13/2011 Other specified acquired hypothyroidism Persistent insomnia 04/18/2007 Reflux esophagitis 05/01/2014 ROTATOR CUFF SYND NOS 05/07/2003 Sprain, lumbosacral chronic Strep sore throat 08/09/06 treated with pcn Social History Socioeconomic History Marital status: Spouse name: Not on file Number of children: 3 Years of education: Not on file Highest education level: Not on file Occupational History 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 Employer: [id number] Comment: laid off Employer: [employer] 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 Employer: [employer] 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 (Adult - for ages 18 years and over): Not on file Housing Stability: Not on file O:Blood pressure 120/70, pulse 84, temperature 36.8 C (98.2 F), temperature source Tympanic, weight 74.4 kg (164 lb), SpO2 98%. GENERAL: alert, healthy, and no distress EARS: right ear with hearing aid tip - removed with forceps BACK: pain with palpation at lower back. No edema, no erythema, no ecchymosis. Pain with ROM at waist and with straight leg raise. NEURO: no focal motor/sensory deficits, gait normal, reflexes normal and symmetric A:Acute bilateral low back pain without sciatica (Primary) - XR L SPINE COMPLETE Primary osteoarthritis of both knees - Ibuprofen 600 MG Oral Tablet (Motrin); Take 1 Tablet by mouth every 6 hours as needed for Pain (for knee pain). H/O cold sores Foreign body of right ear, initial encounter Other orders - Hydrocortisone 2.5 % External Cream; Apply topically to affected area 3 times a day. To affected area. Will xray lumbar spine. Continue ibuprofen. Hearing aid tip removed from ear. Any questions/problems, please call. If anything changes, worsens, develops new sx, please call [facility]. Follow Up: Return if symptoms worsen or fail to improve. Krista Sierra PA-C documented in this encounter Nursing Notes * Yusra Hi LPN - 04/19/2024 10:29 AM EDT Chief Complaint Patient presents with Acute Fell on 04/14 going down steps and went backwards hitting back on edge of step Taking Ibuprofen Placed Husbands hearing aide in her right ear then when she removed his hearing aid she noticed thetip was missing. She was unable to get Q tip in her ear. Mitchel pain or drainage Duration - 2 mo The patient has been properly identified by confirmation of name and date of . documented in this encounter Plan of Treatment Upcoming Encounters Date Type Department Care Team (Late st Contact Info) Description 06/02/2024 10:30 AM EDT Office Visit Family Medicine [address] [place] [address] [place] [address] Pending Results Name Type Priority Associated Diagnoses Date /Time XR L SPINE COMPLETE Medical Imaging Routine Acute bilateral low back pain without sciatica 04/19/2024 10:58 AM EDT Scheduled Procedures Name Priority Associated [...] bilateral low back pain without sciatica- Primary Primary osteoarthritis of both knees Primary localized osteoarthrosis, lower leg H/O cold sores Personal history of other infectious and parasitic disease Foreign body of right ear, initial encounter documented in this encounter Care Teams Investigation Division Sergeant Relationship Specialty Start Date End Date Liss Penn DO [address] [place] [address] [place] [address] PCP - General Internal Medicine 07/02/17 documented as of this encounter
--- OUTSIDE RECORDS SUMMARY | 2024-10-03 21:21 | External Medical Summary | Summary of Care ---
Author Name Unknown Organization [facility] Address [address] [place] [address] Phone [phone] Care Team Providers Care Risk Management Intern Name Role Phone Liss Penn Primary Care Provider Reason for Visit * Reason Onset Date Comments Advice 04/24/2024 Encounter Details Date Type Department Care Team (Late st Contact Info) Description 04/24/2024 Telephone Family Medicine [address] [phone] Krista Sierra PA-C [address] [place] [address] [place] [id number] Advice Allergies Active Allergy Reactions Criticality Noted Date Comments Lovastatin Muscle pain Medium 09/22/2006 Metformin 08/19/2018 Diarrhea Niacin Er Flushing Low 08/19/2010 Nsaids Other (Please comment) Medium 10/13/2011 GERD Simvastatin 05/17/2001 elevated LFTs documented as of this encounter (statuses as of 04/24/2024) Medications Medication Sig Dispensed Refills Start Date [...] as of this encounter (statuses as of 04/24/2024) Active Problems Problem Noted Date Diagnosed Date Diabetic peripheral neuropathy 10/27/2023 Iron deficiency anemia 06/05/2022 Nonrheumatic aortic valve insufficiency 12/24/[address] current use of therapeutic drug 2020 H/O [...] as of this encounter (statuses as of 04/24/2024) Resolved Problems Problem Noted Date Diagnosed Date [...] ROTATOR CUFF SYND NOS 05/07/20032017 LOC PRIM [id number] 05/07/2003 0905/2017 Major depressive disorder Overview: ICD-10 update of inactive term Elevated liver enzymes 08/16 Mixed dyslipidemia 9 Overview: Per Lipid Taxonomy. SPRAIN LUMBOSACRAL 8 LUMB-LUMBOSAC DISC DEGEN 05/2017 Benign neoplasm of colon 05/2017 Cystocele, midline 8 Impaired fasting glucose 08/2012 Gastroparesis 02/24/2019 Dyslipidemia, goal LDL below 130 08/04/2012 documented as of this encounter (statuses as of 04/24/2024) Immunizations Name Administration Dates Next Due COVID-19 mRNA, LNP-s, No Pre serve, 2-Dose Series ([employer]) 09/12/2021,01/29/2021,01/08/2021 Covid-19, Mrna, Lnp-s, Pf, B ivalent, 30 Mcg, IM, 12 yrs and above ([employer]) 09/08/2022 Pneumococcal Conjugate Vacc, 13 Valent (Prevnar) [...] encounter Miscellaneous Notes * Telephone Encounter - Evelina Salcedo RT [...] 10:30 AM EDT Office Visit Family Medicine [address] [place] [phone] [address] [place] [address] Scheduled Procedures Name [...] filedocumented as of this encounter Care Teams Risk Management Intern Relationship Specialty Start Date End Date Liss Penn DO [address] [place] [address] [place] [address] PCP - General Internal Medicine 07/02/17 documented as of this encounter
--- OUTSIDE RECORDS SUMMARY | 2024-10-03 21:21 | External Medical Summary | Summary of Care ---
Author Name Unknown Organization [facility] Address [address] [place] [address] Phone [phone] Care Team Providers Care Logistics Solution Manager Name Role Phone Liss Penn Primary Care Provider Reason for Visit * Reason Onset Date Comments Advice 04/24/2024 Encounter Details Date Type Department Care Team (Late st Contact Info) Description 04/24/2024 Telephone Family Medicine [address] [phone] Heide Portillo PA-C [address] [place] [address] [place] [id number] Advice Allergies Active Allergy Reactions Criticality Noted Date Comments Lovastatin Muscle pain Medium 09/22/2006 Metformin 08/19/2018 Diarrhea Niacin Er Flushing Low 08/19/2010 Nsaids Other (Please comment) Medium 10/13/2011 GERD Simvastatin 05/17/2001 elevated LFTs documented as of this encounter (statuses as of 04/29/2024) Medications Medication Sig Dispensed Refills Start Date [...] as of this encounter (statuses as of 04/29/2024) Active Problems Problem Noted Date Diagnosed Date Diabetic peripheral neuropathy 10/27/2023 Iron deficiency anemia 06/05/2022 Nonrheumatic aortic valve insufficiency 12/24/19 22 long-term current use of therapeutic drug 2020 H/O [...] as of this encounter (statuses as of 04/29/2024) Resolved Problems Problem Noted Date Diagnosed Date [...] ROTATOR CUFF SYND NOS 05/07/20032017 LOC PRIM [id number] 05/07/200305/2017 Major depressive disorder Overview: ICD-10 update of inactive term Elevated liver enzymes 08/16 Mixed dyslipidemia 9 Overview: Per Lipid Taxonomy. SPRAIN LUMBOSACRAL 8 LUMB-LUMBOSAC DISC DEGEN 05/2017 Benign neoplasm of colon 05/2017 Cystocele, midline 8 Impaired fasting glucose 08/2012 Gastroparesis 02/24/2019 Dyslipidemia, goal LDL below 130 08/04/2012 documented as of this encounter (statuses as of 04/29/2024) Immunizations Name Administration Dates Next Due COVID-19 mRNA, LNP-s, No Pre serve, 2-Dose Series ([employer]) 09/12/2021,01/29/2021,01/08/2021 Covid-19, Mrna, Lnp-s, Pf, B ivalent, [...] Telephone Encounter - Lena Vargas RN - 04/29/2024 2:28 PM EDT attempted to call pt, phone Disconnects. [facility] does automated calls when scripts are sent for patient Will also send a My G * Addendum Note - Heide Portillo PA-C [...] notified once this has been addressed: Send [email or web address] message / Call back * Telephone Encounter - Evelina Salcedo RT (Marleni)(Fátima) - 04/24/2024 1:33 PM EDT Xray results [...] AM EDT Office Visit Family Medicine [address] [place] [phone] Liss Penn[address] [place] [address] Scheduled Procedures Name Priority Associated Diagnoses Date/Ti [...] Primary documented in this encounter Care Teams Logistics Solution Manager Relationship Specialty Start Date End Date Liss Penn DO [address] [place] [address] [place] [address] PCP - General Internal Medicine 07/02/17 documented as of this encounter
--- NOTE | 2024-10-03 22:30 | Communication Note ---
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 Needs followup.
[2024-10-03] MEDS ORDERED: MELATONIN 3 MG TAB PO PRN (22:50)
[2024-10-03] MEDS: ZOLPIDEM TARTRATE 5 MG TAB PO STA (22:51)
[2024-10-04 06:58] LABS: Basophils # (auto) 0.03 K/uL (0.00-0.20); Basophils % (auto) 0.2 %; Eosinophils # (auto) 0.02 K/uL (0.00-0.50); Eosinophils % (auto) 0.2 %; Hematocrit (blood only) 35.7 % (37.0-47.0); Hemoglobin 11.7 g/dl (12.0-16.0); Immature Granulocytes # (auto) 0.04 K/uL (0.01-0.20); Immature Granulocytes % (auto) 0.3 %; Lymphocytes # (auto) 1.89 K/uL (1.20-3.40); Lymphocytes % (auto) 15.2 %; Mean Corpuscular Hemoglobin 27.9 pg (25.0-34.0); Mean Corpuscular Hgb Conc 32.8 g/dL (32.0-36.0); Mean Corpuscular Volume 85.2 fL (80.0-100.0); Mean Platelet Volume 10.8 fL (9.4-12.4); Monocytes # (auto) 0.67 K/uL (0.11-0.59); Monocytes % (auto) 5.4 %; Neutrophils # (auto) 9.79 K/uL (1.40-6.50); Neutrophils % (auto) 78.7 %; Platelet Count 209 K/uL (130-400); RDW Coefficient of Variation 13.7 % (11.5-14.5); RDW Standard Deviation 42.5 fL (36.4-46.3); Red Blood Count 4.19 M/uL (4.20-5.40); White Blood Count 12.44 K/ul (4.8-10.8)
[2024-10-04 07:20] LABS: BUN Creatinine Ratio 30.9 (10-20); Calcium 8.9 mg/dl (8.6-10.3); Creatinine Clr Calc Pharmacy 67.9 ml/min; Potassium 3.5 mmol/L (3.5-5.1)
[2024-10-04 12:58] LABS: Adenovirus PCR Not Detected (NotDetected); Bordetella parapertussis PCR Not Detected (NotDetected); Bordetella pertussis PCR Not Detected (NotDetected); Chlamydia pneumoniae PCR Not Detected (NotDetected); Coronavirus 229E PCR Not Detected (NotDetected); Coronavirus CoV-2 (COVID19)PCR Not Detected (NotDetected); Coronavirus HKU1 PCR Not Detected (NotDetected); Coronavirus NL63 PCR Not Detected (NotDetected); Coronavirus OC43PCR Not Detected (NotDetected); Human Metapneumovirus PCR Not Detected (NotDetected); Influenza A PCR Not Detected (NotDetected); Influenza B PCR Not Detected (NotDetected); Mycoplasma pneumoniae PCR Not Detected (NotDetected); Parainfluenza Virus 1 PCR Not Detected (NotDetected); Parainfluenza Virus 2 PCR Not Detected (NotDetected); Parainfluenza Virus 3 PCR Not Detected (NotDetected); Parainfluenza Virus 4 PCR Not Detected (NotDetected); Respiratory Syncytial VirusPCR Not Detected (NotDetected); Rhinovirus/Enterovirus PCR Not Detected (NotDetected)
[2024-10-04 15:16] LABS: Adenovirus F 40/41 PCR Not Detected (NotDetected); Astrovirus PCR Not Detected (NotDetected); Campylobacter PCR Not Detected (NotDetected); Cryptosporidium PCR Not Detected (NotDetected); Cyclospora cayetanensis PCR Not Detected (NotDetected); Entamoeba histolytica PCR Not Detected (NotDetected); Enteroaggregative E.coli(EAEC) Not Detected (NotDetected); Enteropathogenic E.coli (EPEC) Not Detected (NotDetected); Enterotoxigenic E.coli (ETEC) Not Detected (NotDetected); Giardia lamblia PCR Not Detected (NotDetected); Norovirus GI/GII PCR Not Detected (NotDetected); Plesiomonas shigelloides PCR Not Detected (NotDetected); Rotavirus A PCR Not Detected (NotDetected); Salmonella PCR Not Detected (NotDetected); Sapovirus PCR Not Detected (NotDetected); Shiga-like Toxin E.coli (STEC) Not Detected (NotDetected); Shigella/Enteroinvasive E.coli Not Detected (NotDetected); Vibrio cholerae PCR Not Detected (NotDetected); Vibrio species PCR Not Detected (NotDetected); Yersinia enterocolitica PCR Not Detected (NotDetected)
--- NOTE | 2024-10-04 17:29 | Hospitalist Progress Note ---
Date of Service October 04, 2024 Assessment & Plan (1) Generalized body aches: Plan: 74-year-old female with past medical history significant for type 2 diabetes, diabetic peripheral neuropathy, hypothyroidism, hyperlipidemia, nonrheumatic aortic valve insufficiency, GERD, fatty liver, osteoarthritis of multiple joints, iron deficiency anemia, depression, comes because of severe pain in the joints and whole body aches starting 1d ago [employer]. Patient says she woke up yesterday around 3 AM and then started to having whole body aches and joint pains and at the time she also had a episode of sweating. Patient denies headache, fever, visual changes, photophobia. No temperature or tachycardia noted at presentation. She is being managed for the following: Generalized body aches Rule out infection, bacterial versus viral Likely viral infection though BioFire panel negative. Patient has some congestion/erythema of throat. Patient reports significant improvement in her generalized bodyaches. Patient has been worked up in the line of possible meningitis, was started on Rocephin and vancomycin, LP done - fluid analysis negative for infection. Lyme screen and Anaplasma negative. Follow further LP studies including culture and further serology. follow blood culture. follow urine culture. Doubt this is meningitis but will continue antibiotic for today until LP culture finalized. Hyponatremia, Mild: Admitting sodium of 130, transient in the setting of acute illness. Now resolved. History of osteoarthritis of multiple joints: c/w pain mx. chronic and mild per pt. Abnormal EKG Left bundle branch block We do not have recent EKG to compare Patient denies any chest pain or shortness of breath ECho 10/03 reviewed Other chronic medical conditions: Continue with/resume home meds as when able Hypothyroidism, continue Synthroid Hyperlipidemia, continue statin. CPK normal. Depression, continue citalopram GERD, continue PPI Diabetes, continue sliding scale insulin while in hospital Diabetic peripheral neuropathy, continue gabapentin Iron deficiency anemia, hemoglobin stable. Monitor. DVT prophylaxis: SCDs Disposition: Medical floor Full code Pt's dtr updated over the phone. Admission and Anticipated Discharge Date Admission Date: October 03, 2024 Subjective Patient was seen and examined at bedside. Patient was sitting up in chair, on room air, NAD, resting comfortably. Patient reports significant improvement in her generalized body ache, denies sore throat. Patient denies any headache/fever/visual changes/photophobia. Patient reports eating okay and moving bowels okay. Patient has been afebrile, heart rate has not been tachycardic. Physical Exam Physical Exam: General- Not in distress Head- atraumatic Eyes- PERRL. ENT- erythematous and slightly congested throat Neck- good ROM, nontender, complete flexion w/ no pain elicited. Lungs- clear to auscultation , no wheezing or crackles. Heart- regular rate and rhythm; no murmur, no gallop. Abdomen- normal bowel sounds, soft, nontender, no distension. Extremities- no pretibial edema, no erythema seen. Neuro- alert, oriented PERRL, no facial palsy; no dysarthria; moves extremities Results & Data Results & Data Vital Signs (Past 12 Hours) Vital Signs Temp Pulse Resp BP Pulse Ox O2 Del Method 10/04/24 14:36 36.5 C 55 L 18 151/81 H 95 Room Air 10/04/24 07:55 36.6 C 55 L 19 158/70 H 96 Room Air
[2024-10-04] MEDS: ADVANCED PROBIOTIC 625 MG CAPSULE PO SCH (18:21)
[2024-10-05] MEDS: VANCOMYCIN LEVEL ONE (06:20)
[2024-10-05 06:31] LABS: Hematocrit (blood only) 34.7 % (37.0-47.0); Hemoglobin 11.7 g/dl (12.0-16.0); Mean Corpuscular Hemoglobin 28.5 pg (25.0-34.0); Mean Corpuscular Hgb Conc 33.7 g/dL (32.0-36.0); Mean Corpuscular Volume 84.4 fL (80.0-100.0); Mean Platelet Volume 10.3 fL (9.4-12.4); Platelet Count 214 K/uL (130-400); RDW Coefficient of Variation 13.7 % (11.5-14.5); RDW Standard Deviation 42.2 fL (36.4-46.3); Red Blood Count 4.11 M/uL (4.20-5.40); White Blood Count 7.83 K/ul (4.8-10.8)
[2024-10-05 06:56] LABS: BUN Creatinine Ratio 23.5 (10-20); Calcium 8.8 mg/dl (8.6-10.3); Creatinine Clr Calc Pharmacy 67.9 ml/min; Magnesium 1.7 mg/dl (1.7-2.4); Phosphorus 4.3 mg/dl (2.5-4.9); Potassium 3.7 mmol/L (3.5-5.1)
[2024-10-05 07:48] VITALS: BP 157/91; PULSE 56; RESP 16; TEMP 97.7; O2SAT 96
--- NOTE | 2024-10-05 11:29 | Discharge Summary ---
Date of Service October 05, 2024 Admission HPI Per Admitting Provider 74-year-old female with past medical history significant for type 2 diabetes, diabetic peripheral neuropathy, hypothyroidism, hyperlipidemia, nonrheumatic aortic valve insufficiency, GERD, fatty liver, osteoarthritis of multiple joints, iron deficiency anemia, depression, comes because of severe pain in the joints and whole body aches starting yesterday morning 3 AM. Patient says she woke up yesterday around 3 AM and then started to having whole body aches and joint pains and at the time she also had a episode of sweating. Since then no sweating. Because of pain she is not able to ambulate.Also having neck pain and couldn't extend it completely. Denies any fevers. Vision is okay. No runny nose or sore throat. No cough. No chest pain. No shortness of. No nausea. No abdominal pain. Normal bowel and bladder movements. Denies evidence of black stools. No hematuria. Hemodynamics are okay. Past medical history. As mentioned above Past surgical history. Colonoscopy. EGD. Foot surgery. Appendectomy. Removal of oviducts. Removal of thyroid lesion. Cholecystectomy. Repair of urethral prolapse, repair of vaginal prolapse, repair of rectocele, stereotactic biopsy, total hysterectomy. Family history. Father had pancreatitis. Mother had cervical cancer. Brother had hypercholesterolemia, diabetes and renal failure. Brother has cirrhosis. Social history. . No smoking. Alcohol rarely. No drug use. Admission Exam Per Admitting Provider General- Not in distress Head- atraumatic Eyes- PERRL. ENT- oropharynx clear Neck- stiff, painful neck movements, cannot extend fully. Lungs- clear to auscultation , no wheezing or crackles. Heart- regular rate and rhythm; no murmur, no gallop. Abdomen- normal bowel sounds, soft, nontender, no distension. Extremities- no pretibial edema, no erythema seen. Neuro- alert, oriented PERRL, no facial palsy; no dysarthria; moves extremities Principal Diagnosis Generalized body aches Ruled out meningitis Mild hyponatremia History of osteoarthritis of multiple joints Discharge Exam General- Not in distress Head- atraumatic Eyes- PERRL. ENT- erythematous and slightly congested throat Neck- good ROM, nontender, complete flexion w/ no pain elicited. Lungs- clear to auscultation , no wheezing or crackles. Heart- regular rate and rhythm; no murmur, no gallop. Abdomen- normal bowel sounds, soft, nontender, no distension. Extremities- no pretibial edema, no erythema seen. Neuro- alert, oriented PERRL, no facial palsy; no dysarthria; moves extremities Discharge Data Allergies Allergy/AdvReac Type Severity Reaction Status Date / Time No Known Allergies Allergy Unknown Verified 03/26/08 15:18 niacin AdvReac Intermediate SEVERE Verified 11/29/09 04:32 FLUSHING AND DIZZINESS lovastatin AdvReac Mild FLUSHING Unverified 11/29/09 04:32 Consultations 10/03/24 02:08 ED Decision to Admit Stat Ordered Studies 10/03/24 00:55 CT abd pelvis IV con only Stat 10/03/24 06:23 IR lumbar puncture diagnostic Routine Hospital Course (1) Generalized body aches: 74-year-old female with past medical history significant for type 2 diabetes, diabetic peripheral neuropathy, hypothyroidism, hyperlipidemia, nonrheumatic aortic valve insufficiency, GERD, fatty liver, osteoarthritis of multiple joints, iron deficiency anemia, depression, comes because of severe pain in the joints and whole body aches starting 1d ago APPLICATION SUPPORT LEAD. Patient says she woke up yesterday around 3 AM and then started to having whole body aches and joint pains and at the time she also had a episode of sweating. Patient denies headache, fever, visual changes, photophobia. No temperature or tachycardia noted at presentation. She was managed for the following: Generalized body aches Rule out infection, bacterial versus viral Likely viral infection though BioFire panel negative. Patient has some congestion/erythema of throat, noted 10/04. Patient reports significant improvement in her generalized bodyaches. Neck muscles tender on exam, feels relief w/ gentle massage. Patient has been worked up in the line of possible meningitis, was started on Rocephin and vancomycin, LP done - fluid analysis and CSF Cx negative for infection. --> DC antibiotic. Lyme screen and Anaplasma negative. Follow further LP studies, blood culture and urine culture during PCP visit within a week time, such has been communicated to the patient and her daughter Batsheva. Patient advised to utilize [id number] Tylenol and head compression for bodyaches and joint pain, if not improving, recommended that she follow-up with outpatient physical therapy. Hyponatremia, Mild: Admitting sodium of 130, transient in the setting of acute illness. Now resolved. History of osteoarthritis of multiple joints: c/w pain mx. chronic and mild per pt. Abnormal EKG Left bundle branch block We do not have recent EKG to compare Patient denies any chest pain or shortness of breath ECho 10/03 reviewed Concern for UTI: Patient denies any pain or burning while passing urine APPLICATION SUPPORT LEAD, patient received 3 days IV antibiotic while in hospital, will stop further antibiotic, patient advised to follow-up on final results of urine cultures during her PCP visit within a week time. Doubt this is urinary infection given lack of urinary symptoms prior to arrival. Other chronic medical conditions: Continue with/resume home meds as when able Hypothyroidism, continue Synthroid Hyperlipidemia, continue statin. CPK normal. Depression, continue citalopram GERD, continue PPI Diabetes, continue sliding scale insulin while in hospital Diabetic peripheral neuropathy, continue gabapentin Iron deficiency anemia, hemoglobin stable. Monitor. DVT prophylaxis: SCDs Disposition: Medical floor Full code Pt's dtr updated over the phone 10/04 and 10/05. Patient is being discharged to home with following instruction at the point of discharge: Follow-up with your primary care physician within a week time and likely you will need labs CBC/CMP/magnesium/phosphorus. You presented with generalized bodyaches, you also had neck pain hence you were worked up in the line of meningitis initially. The initial tests were negative for meningitis (including fluid analysis and culture), you have various serological tests pending. You also have pending blood culture and urine culture results. As discussed at the bedside, follow-up on the final results of all these tests during your PCP visit within 3 to 5 days upon discharge. For concerns of urinary tract infection, you completed 3 days IV antibiotic therapy while in hospital, your urine culture results are pending as of discharge which you will need to follow-up during your PCP visit within a week time upon discharge. 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 You might benefit from outpatient physical therapy, coordinate with your PCP office to set up the referral. Take your medications as prescribed. Please make sure that you are able to get your medications today by calling your pharmacy before you leave the hospital so that your treatment continuity is not broken. Home Health Attestation I certify that this patient is under my care and that I, or a physicians advertising assistant working with me, had a face to-face encounter that meets the home health [id number] encounter requirements with this patient. The encounter with the patient was in whole, or in part, for the following medical condition, which is the primary reason for home health care (list medical condition): I certify that, based on my findings, the following services are medically necessary home health services: My clinical findings support the need for the above services because: Further, I certify that my clinical findings support that this patient is homebound (i.e. absences from home require considerable and taxing effort and are for medical reasons or cheondoism services or infrequently or of short duration when for other reasons) because: Certification for Home Health Services: Based on the above findings, I certify that this patient is confined to the home and needs intermittent snf care, physical therapy and/or speech therapy or continues to need occupational therapy. The patient is under my care, and I have initiated the establishment of the plan of care. This patient will be followed by a physician who will periodically review the plan of care. Total Time Total Time Spent Total Time Spent (In Minutes): 35 Discharge Plan Discharge Items Patient Disposition: Home - Self-Care Reason For Visit: GENERALIZED PAIN, NECK PAIN, UTI? Discharge Diagnosis: Generalized body aches Ruled out meningitis Mild hyponatremia History of osteoarthritis of multiple joints Activity: Resume your previous activity Non-emergency contact: Primary Care Provider Call non-emergency contact if: you have any medication questions and your symptoms worsen Follow-up/Referrals: Liss Penn, [Primary Care Provider] - Diet: Carb Consistent or DM2 Addtl Attending Provider Instructions: Follow-up with your primary care physician within a week time and likely you will need labs CBC/CMP/magnesium/phosphorus. You presented with generalized bodyaches, you also had neck pain hence you were worked up in the line of meningitis initially. The initial tests were negative for meningitis (including fluid analysis and culture), you have various serological tests pending. You also have pending blood culture and urine culture results. As discussed at the bedside, follow-up on the final results of all these tests during your PCP visit within 3 to 5 days upon discharge. For concerns of urinary tract infection, you completed 3 days IV antibiotic therapy while in hospital, your urine culture results are pending as of discharge which you will need to follow-up during your PCP visit within a week time upon discharge. 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 You might benefit from outpatient physical therapy, coordinate with your PCP office to set up the referral. Take your medications as prescribed. Please make sure that you are able to get your medications today by calling your pharmacy before you leave the hospital so that your treatment continuity is not broken. Pending Studies at Discharge: Yes Stand-Alone Forms: My [facility] [employer], Smoking Cessation Medications and DC Order Prescriptions: Continued atorvastatin 40 mg tablet 40 mg PO DAILY valacyclovir 1 gram tablet 2,000 mg PO UD Rx Instructions: 2gm po bid x one day prn cold sores levothyroxine [Synthroid] 88 mcg tablet 88 mcg PO DAILY citalopram 20 mg tablet 20 mg PO DAILY gabapentin 300 mg capsule 300 mg PO TID omeprazole 20 mg capsule,delayed release(DR/EC) 20 mg PO DAILY Ozempic 2 mg/dose (8 mg/3 mL) pen injector 2 mg SUBCUT WK aspirin 81 mg Tablet,Delayed Release (Dr/Ec) 81 mg PO DAILY cyanocobalamin (vitamin B-12) 500 mcg Tablet 500 mcg PO DAILY magnesium oxide 400 mg magnesium Tablet 400 mg PO DAILY Discharge Orders: Discharge Order (Routine); Ordered 10/05/24 Ordered By: Yovanny Montemayor/Other Patient Handouts: Protein MyPlate Admission Data Admit Date/Time: 10/03/24 04:04 Attending Provider: Yovanny Caldwell Admit Provider: Oc Hsu Primary Care Provider: Liss Penn Other Providers: Oc Hsu
[2024-10-06] MEDS ORDERED: cefTRIAXone SODIUM 2,000 MG/50 ML BAG IV SCH (08:00)
[2024-10-07 14:02] LABS: Cryptococcal Antigen Not Detected (Not Detected); Lyme DNA PCR CSF or Synovial Not Detected (Not Detected); Lyme DNA Source CSF; Source CSF
[2024-10-09 17:03] LABS: Babesia microti DNA Not Detected (Not Detected); Q Fever IgG, Phase I NEGATIVE; Q Fever Phase I IgM Antibody NEGATIVE; Q Fever Phase II IgG Antibody NEGATIVE; Q Fever Phase II IgM Antibody NEGATIVE; R. typhi IgG Ab NOT DETECTED; R. typhi IgM Ab NOT DETECTED; RMSF IgG Ab NOT DETECTED; RMSF IgM Ab NOT DETECTED
== END 2024-10-05 13:59 | disposition home or self-care (01) ==
LOC: ED 20:14 → 3E 10-03 04:04 → SUATTDRO 10-03 04:04 → INTOOBSV 10-03 04:04 → 3E 10-03 05:48

== ENCOUNTER 2024-10-18 19:38 | Observation (INO) ==
--- OUTSIDE RECORDS SUMMARY | 2024-10-18 19:45 | External Medical Summary | Summary of Care ---
Author Name Unknown Organization [facility] Address [address] [place] [address] Phone [phone] Care Team Providers Care Review Rn Name Role Phone Liss Penn Primary Care Provider Encounter Details Date Type Department Care Team (Late st Contact Info) Description 10/13/2024 Orders Only PATIENT [facility] DO NOT DELETE THIS DEPT [place] [address] Allergies Active Allergy Reactions Criticality Noted Date Comments Lovastatin Muscle pain Medium 09/22/2006 Metformin 08/19/2018 Diarrhea Niacin Er (Antihyperlipidemic) Flushing Low 08/19/2010 Nsaids Other (Please comment) Medium 10/13/2011 GERD Simvastatin 05/17/2001 elevated LFTs documented as of this encounter (statuses as of 10/13/2024) Medications Glucose Blood (ONETOUCH VERIO) STRP Tests blood sugar daily 1 Box Dosing Unit 5 7 Active aspirin 81 MG chewable tablet Take 1 Tablet by mouth in the morning. with food.. 100 Tab 5 7 Active Vitamin B 12 500 MCG Oral Tablet Take by mouth. Active Magnesium 400 MG Oral Tablet Take 1 tablet by mouth daily 1 Tablet 2 Active Atorvastatin Calcium 40 MG Oral Tablet (Lipitor)Indicatio ns:Dyslipidemia, goal LDL below 100 TAKE 1 TABLET DAILY 90 Tablet 3 4 Active Levothyroxine Sodium 88 MCG Oral Tablet (Levoxyl) Take 1 Tablet by mouth in the morning. (at least 30 min prior to breakfast or other meds). 90 Tablet 3 4 Active valACYclovir HCl 1 GM Oral Tablet (Valtrex)Indicatio ns:H/O cold sores TAKE 2 TABLETS BY MOUTH EVERY 12 HOURS FOR 1 DAY FOR COLD SORES 12 Tablet 3 4 Active Ibuprofen 600 MG Oral Tablet (Motrin)Indication s:Primary osteoarthritis of both knees TAKE 1 TABLET BY MOUTH EVERY 6 HOURS NEEDED FOR PAIN (FOR KNEE PAIN). 90 Tablet 1 4 Active Ozempic (2 MG/DOSE) 8 MG/3ML Subcutaneous Solution Pen-injector (Semaglutide (2 MG/DOSE))Indicatio ns:Diabetic peripheral neuropathy (HCC) Inject 2 mg under the skin once a week. DX Diabetes E11.9 9 mL 1 4 Active Gabapentin 300 MG Oral Capsule (Neurontin)Indicat ions:Diabetic peripheral neuropathy (HCC) Take 1 Capsule by mouth in the morning and 1 Capsule at noon and 1 Capsule before bedtime. 270 Capsule 1 4 Active Citalopram Hydrobromide 20 MG Oral Tablet (CeleXA)Indication s:Depression, major TAKE 1 TABLET IN THE MORNING 90 Tablet 2 4 Active Omeprazole 20 MG Oral Capsule Delayed Release (PriLOSEC)Indicati ons:Gastroesophage al reflux disease without esophagitis TAKE 1 CAPSULE IN THE MORNING 90 Capsule 2 4 Active Hydrocortisone 2.5 % External CreamIndications:H emorrhoids, external without complications apply to rectal area every 8 hours as needed for irritation. 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 SPRAIN LUMBOSACRAL 8 LUMB-LUMBOSAC DISC DEGEN 05/2017 Benign neoplasm of colon 05/2017 Cystocele, midline 8 Impaired fasting glucose 08/2012 Gastroparesis 02/24/2019 Dyslipidemia, goal LDL below 130 08/04/2012 documented as of this encounter (statuses as of 10/13/2024) Immunizations Name Administration Dates Next Due COVID-19 mRNA, LNP-s, No Pre serve, 2-Dose Series ([employer]) 09/12/2021,01/29/2021,01/08/2021 Covid-19, Mrna, Lnp-s, Pf, B ivalent, [...] IM 09/16/2015 Seasonal Influenza, Trivalen t, (IIV3), PF, (Fluzone) 08/11/2024 Seasonal Influenza, Trivalen t, Adjuvanted, 65+ YRS, [...] file Not on file Not on file 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 [address] [place] [id number] 01/23/2025 10:30 AM EDT Office Visit Family Medicine [address] [place] [phone] Liss Penn [address] [place] [address] Scheduled Procedures Name Priority Associated Diagnoses Date/Ti me COLONOSCOPY FLEXIBLE PROXIMAL DIAGNOSTIC Recall History of colon polyps Health Maintenance Due Date Last Done Comments Adult Wellness Visit 10/13/2022 10/13/2021 Depression Monitoring 10/13/2022 10/13/2021 DXA Scan 07/08/2023 07/08/2016, 11/26, 04/07/2005 COVID-19 Vaccine ( season) 2024 09/08/2022, 09/12/2021, 01/29/2021, Additional history exists Albumin/Creatinine Ratio 10/27/2024 024, 06/05/2022, 06/04/2021, Additional history exists Diabetic Eye Exam 10/27/2024 10/27/2023, , 01/09/2022, Additional history exists TSH 10/27/2024 10/27/2023, 11/25, 12/12/2021, Additional history exists HbA1c 12/03/2024 06/02/2024, 01/0 12/2023, 12/10/2022, Additional history exists Diabetic Foot Exam 06/02/2025 06/02/2024, 0 12/10/2022, 10/13/2021, Additional history exists GFR 10/10/2025 10/10/2024, 10/26, 10/27/2023, Additional history exists Colonoscopy 08/04/2027 08/04/2022, 07/25, 04/14/2019, Additional history exists DTap/Tdap Vaccines (3 - Td or Tdap) 06/06/2030 06/06/2020, 01/03/2010, 11/25/1999 Pneumococcal Vaccine: 65+ Years Completed 08/19/2018, 03/05/2015, 10/04/2012 Zoster Vaccines Completed 11/09/2019, 04/26, 02/02/2013 RETIRED - COLONOSCOPY-EVERY 5 YRS AGES 18-100 Discontinued 08/04/2022, 08/04/2022, 04/14/2019, Additional history exists Influenza Vaccine (FLU shot) Completed 08/11/2024, 09/02/2023, 08/28/2022, Additional history exists HPV (Gardasil) Vaccine Aged [...] filedocumented as of this encounter Care Teams Review Rn Relationship Specialty Start Date End Date Liss Penn DO [address] [place] [address] [place] [address] PCP - General Internal Medicine 07/02/17 documented as of this encounter
--- OUTSIDE RECORDS SUMMARY | 2024-10-18 19:45 | External Medical Summary | Summary of Care ---
Author Name Unknown Organization [facility] Address [address] [place] [address] Phone [phone] Care Team Providers Care Health Aid Name Role Phone Liss Penn DO Primary Care Provider Reason for Visit * Reason Onset Date Comments MyCode Consent 10/10/2024 Encounter Details Date Type Department Care Team (Late st Contact Info) Description 10/10/2024 Orders Only Outcomes Research Department [address] [place] [address] Nida López CHRA MyCode Research Other*[id number]* Allergies Active Allergy Reactions Criticality Noted Date Comments Lovastatin Muscle pain Medium 09/22/2006 Metformin 08/19/2018 Diarrhea Niacin Er (Antihyperlipidemic) Flushing Low 08/19/2010 Nsaids Other (Please comment) Medium 10/13/2011 GERD Simvastatin 05/17/2001 elevated LFTs documented as of this encounter (statuses as of 10/10/2024) Medications Glucose Blood (ONETOUCH VERIO) STRP Tests [...] SORES 12 Tablet 3 02/08/20 24 Active Ibuprofen 600 MG Oral Tablet [...] MORNING 90 Capsule 2 09/12/20 24 Active Scopolamine 1 MG/3DAYS Transdermal Patch 72 Hour (Transderm-Scop)I ndications:H/O motion sickness Place 1 Patch over 72 hours topically on the skin every 3 days. 4 hours before event. May replace every 3 days. . 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 Consent Documentation Batsheva Dorothy Cardenas provided consent/authorization to participate in the [employer] Project. documented in this encounter Plan of Treatment Upcoming Encounters Date Type Department Care Team (Late st Contact Info) Description 11/06/2024 2:00 PM EST Office Visit Audiology [facility] [address] [place] [address] Coleen Flores Au.D. [address] [place] [address] 01/23/2025 10:30 AM EDT Office Visit Family Medicine [address] [place] [phone] [place] [address] Scheduled Orders Name Type Priority Associated Diagnoses Orde r Schedule MYCODE INITIAL ADULT Lab Routine MyCode Research Other*[id number] Expected: 10/10/2024 (Approximate), Expires: 10/30/2025 Scheduled Procedures Name Priority Associated Diagnoses Date/Ti [...] as of this encounter Visit Diagnoses Diagnosis MyCode Research Other*[id number]- Primary documented in this encounter Care Teams Health Aid Relationship Specialty Start Date End Date Liss Penn DO [address] [place] [address] [place] [address] PCP - General Internal Medicine 07/02/17 documented as of this encounter
--- OUTSIDE RECORDS SUMMARY | 2024-10-18 19:45 | External Medical Summary | Summary of Care ---
Author Name Unknown Organization [facility] Address [address] [place] [address] Phone [phone] Care Team Providers Care Carnival Worker Name Role Phone Liss Penn Primary Care Provider Reason for Visit * Reason Onset Date Comments Hospital Follow-Up Hospital Follow-Up 10/10/2024 Encounter Details Date Type Department Care Team (Latest Contact Info) Description 10/10/2024 2:00 PM EST Office Visit Family Medicine [address] [phone] Liss Galindo MD [address] [place] [address] [place] [phone] Hospital discharge follow-up*; Hyponatremia; Generalized weakness; Hemorrhoids, external without complications; Primary osteoarthritis of both knees Allergies Active [...] MORNING 90 Capsule 2 09/12/20 24 Active Hydrocortisone 2.5 % External CreamIndications: Hemorrhoids, external without complications apply to rectal area every 8 hours as needed for irritation. 3.5 g 3 10/10/20 24 Active Hydrocortisone 2.5 % External CreamIndications: Hemorrhoids, external without complications apply to rectal area every 8 hours as needed for irritation. 3.5 g 3 06/05/20 22 2023 Discontinued(R efill) Scopolamine 1 MG/3DAYS Transdermal Patch 72 Hour (Transderm-Scop)I ndications:H/O motion sickness Place 1 Patch over 72 hours topically on the skin every 3 days. 4 hours before event. May replace every 3 days. . 8 Patch 06/02/20 24 2023 Discontinued Hospital, Clinic, or Other Facility Administered Medication Ordered Dose Route Frequency Start Date End Date Status methylPREDNISolone acetate (Depo-Medrol) 40 MG/ML inj 40 mgIndications:Primary osteoarthritis of both knees 40 mg IX ONCE 10/10/2024 10/10/2024 Ended methylPREDNISolone acetate (Depo-Medrol) 40 MG/ML inj 40 mgIndications:Primary osteoarthritis of both knees 40 mg IX ONCE 10/10/2024 10/10/2024 Ended Lidocaine-EPINEPHrine 1 %-1:801854 inj 20 mgIndications:Primary osteoarthritis of both knees 20 mg IJ ONCE 10/10/2024 10/10/2024 Ended Lidocaine-EPINEPHrine 1 %-1:401753 inj 20 mgIndications:Primary osteoarthritis of both knees 20 mg IJ ONCE 10/10/2024 10/10/2024 Ended documented as of this encounter (statuses as of 10/10/2024) Active Problems Problem Noted Date Diagnosed Date Diabetic peripheral neuropathy 10/27/2023 Iron deficiency anemia 06/05/2022 Nonrheumatic aortic valve insufficiency 12/24/19 22 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 H/O [...] ROTATOR CUFF SYND NOS 05/07/20032017 LOC PRIM [id number] 05/07/200305/2017 Major depressive disorder Overview (08/17/2017): ICD-10 [...] mRNA, LNP-s, No Pre serve, 2-Dose Series (Pfizer) 09/12/2021,01/29/2021,01/08/2021 Covid-19, Mrna, Lnp-s, Pf, B ivalent, 30 Mcg, IM, 12 yrs and above (Pfizer) 09/08/2022 Pneumococcal Conjugate Vacc, 13 Valent (Prevnar) 03/05/2015 Pneumococcal Polysaccharide PPV23 (Pneumovax) 08/19/2018,10/04/2012 Season Influenza, Quad, PF, Adjuvanted, 65+ Yrs, IM (FLUAD) 08/20/2020 Seasonal Influenza Vac., MDV , IM, 0.5 mL (Fluzone) 09/05/2014,07/06/2013,08/03/2012,11/2010,08/19/2010,08/16/2009,08/03/20 08,09/01/2007,08/24/2006,09/11/2005,1 10/30/2002,09/11/2002,09/19/2001 08/30/2004 Seasonal Influenza, PF, 6 M & above, [...] file Not on file Not on file 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 Not on file Not on malcolm e Medical Scientific Officer at [facility] Not on file Not on file Not on file documented as of this encounter Last Filed Vital Signs Vital Sign Reading Time Taken Comments Blood Pressure 130/70 10/10/2024 2:01 PM EST Pulse 68 10/10/2024 2:01 PM EST Temperature 37 C (98.6 F) 10/10/2024 2:01 PM EST Respiratory Rate - - Oxygen Saturation 96% 10/10/2024 2:01 PM EST Inhaled Oxygen Concentration - - Weight 75 kg (165 lb 6.4 oz) 10/10/2024 2:01 PM EST Height 162.6 cm (5' 4") 10/10/2024 2:01 PM EST Body Mass Index 28.39 10/10/2024 2:01 PM EST documented in this encounter Patient Instructions * Patient Instructions* Liss Galindo MD - 10/10/2024 2:10 PM EST Taking Medicine Safely Medicine is given to help treat or prevent illness. But if you don't take it correctly, it might not help. It might even harm you. Your doctor or pharmacist can help you learn the right way to take your medicine. Listed below are some tips to help you take medicine safely. Safety Tips Have a routine for taking each medicine. Make it part of something you do each day, such as brushing your teeth or eating a meal. When you go to the hospital or your doctor's office, bring all your current medicines in their original boxes or bottles. If you can't do that, bring an up-to-date list of your medicines. Do not stop taking a prescription medicine unless your doctor tells you to. Doing so could make your condition worse. Do not share medicines. Let your doctor and pharmacist know of any allergies you have. Taking prescription medicines with alcohol, street drugs, herbs, supplements, or even some etvx-upx-ptyjrqf medicines can be harmful. Talk to your doctor or pharmacist before using any of these things while taking a prescription medicine. When filling your prescriptions, try using the same pharmacy for all your medicines. If not, let the pharmacist know what medicines you are already on. Keep medicines out of the reach of children and pets. Do not use medicine that has or that doesn't look or smell right. Get rid of it properly. To find out the right way to get rid of medicine: Call your [facility] or [facility]'s household trash and recycling service and ask if a drug take-back program is available in your community. Call your local pharmacy and ask the right way to get rid of the medicine. Go to http://www.fda.gov/ForConsumers/ConsumerUpdates/qlj514248 to learn how to get rid of medicines safely. Using Generic Medicines Medicines have brand names and generic (chemical) names. When a medicine is first made, it is sold only under its brand name. Later, it can be made and sold as a generic. Generic medicines cost less than brand-name medicines and most work just as well. Most people can use the generic medicine instead of the brand-name medicine, unless their doctor says otherwise. 4434-8309 [facility], [address] [place] [address], [place] [address]. All rights reserved. This information is not intended as a substitute for professional medical care. Always follow your healthcare professional's instructions. documented in this encounter Progress Notes * Liss Galindo MD - 10/10/2024 2:00 PM ESTAssociated Order(s): Arthrocentesis; Arthrocentesis Post-Procedure Diagnose(s): Primary osteoarthritis of both knees SUBJECTIVE: Batsheva Cardenas is a 74 year old female. Chief Complaint Patient presents with Hospital Follow-Up Hospital Follow-Up Recent Admission: Patient was recently admitted to [facility] on 10/02. The date of discharge was 10/05. Discharge report received and reviewed. Admitted for weakness, pain, and ambulation issues due to UTI. Treated with antibiotics. Had a neg LP to r/o meningitis. Also had low Na which resolved with fluids. Got 3 days of antibiotics in the hospital, none upon discharge. HPI: Feeling much better since she went home. Pain has resolved, walking well now. "Back to normal". Eating and drinking well at home, appetite is good. Has gotten shots in her knees in the past, last was years ago. Knees have been bothering her again,asking for injections. Has helped for a long time once she gets them. Patient Active Problem List Diagnosis Acquired hypothyroidism Obesity, Class I, BMI 30.0-34.9 (see actual BMI) Osteoarthritis of multiple joints Type 2 diabetes mellitus with hemoglobin A1c goal of less than 7.0% (HCC) Hyperlipidemia with target LDL less than 70 Recurrent major depressive disorder, in full remission (HCC) Gastroesophageal reflux disease without esophagitis Fatty liver Primary osteoarthritis of both knees H/O cold sores [facility] current use of therapeutic drug Nonrheumatic aortic [...] tablet by mouth daily 1 Tablet 0 Atorvastatin Calcium 40 MG Oral Tablet (Lipitor) TAKE 1 TABLET DAILY 90 Tablet 3 Levothyroxine Sodium 88 MCG Oral Tablet (Levoxyl) Take 1 Tablet by mouth in the morning. (at least 30 min prior to breakfast or other meds). 90 Tablet 3 valACYclovir HCl 1 GM Oral Tablet (Valtrex) TAKE 2 TABLETS BY MOUTH EVERY 12 HOURS FOR 1 DAY FOR COLD SORES 12 Tablet 3 Ibuprofen 600 MG Oral Tablet (Motrin) TAKE 1 TABLET BY MOUTH EVERY 6 HOURS NEEDED FOR PAIN (FOR KNEE PAIN). 90 Tablet 1 Ozempic (2 MG/DOSE) 8 MG/3ML Subcutaneous Solution Pen-injector (Semaglutide (2 MG/DOSE)) Inject 2 mg under the skin once a week. DX Diabetes E11.9 9 mL 1 Gabapentin 300 MG Oral Capsule (Neurontin) Take 1 Capsule by mouth in the morning and 1 Capsule at noon and 1 Capsule before bedtime. 270 Capsule 1 Citalopram Hydrobromide 20 MG Oral Tablet (CeleXA) TAKE 1 TABLET IN THE MORNING 90 Tablet 2 Omeprazole 20 MG Oral Capsule Delayed Release (PriLOSEC) TAKE 1 CAPSULE IN THE MORNING 90 Capsule 2 No current facility-administered medications for this visit. Current and discharge medications have been reconciled. Review of patient's allergies indicates: Allergen Reactions Lovastatin Muscle pain Nsaids Other (Please comment) GERD Metformin Diarrhea Simvastatin elevated LFTs Niaspan [Niacin Er (Antihyperlipidemic)] Flushing OBJECTIVE: BP 130/70 | Pulse 68 | Temp 98.6 F (37 C) (Tympanic) | Ht 5' 4" (1.626 m) | Wt 165 lb 6.4 oz (75 kg) | SpO2 96% | BMI 28.39 kg/m | BSA 1.84 m Review Of Systems: Respiratory: negative Cardiovascular: negative Gastrointestinal: negative Genitourinary: negative Musculoskeletal: Complains of pain in, BILATERAL knee(s) Neurologic: negative PHYSICAL EXAM: BP 130/70 | Pulse 68 | Temp 98.6 F (37 C) (Tympanic) | Ht 5' 4" (1.626 m) | Wt 165 lb 6.4 oz (75 kg) | SpO2 96% | BMI 28.39 kg/m | BSA 1.84 m General: alert, healthy, and no distress Head: Normocephalic Neck: supple, no adenopathy Heart: regular rate & rhythm, no murmur, and no gallops Lungs: chest symmetric with normal AP diameter, no chest deformities noted, no chest wall tenderness, lungs clear to auscultation Extremities: no joint deformities, effusion, or inflammation Musculoskeletal: Pain and Swelling in bilateral knees ASSESSMENT: Hospital discharge follow-up (Primary) Doing well since discharge - DISCH MED RECON CUR MED LIS Hyponatremia Check labs for continued resolution - CBC; Future; Expected date: 10/10/2024 - COMPREHENSIVE METABOLIC PANEL; Future; Expected date: 10/10/2024 - PHOSPHORUS; Future; Expected date: 10/10/2024 - MAGNESIUM; Future; Expected date: 10/10/2024 Generalized weakness Resolved - CBC; Future; Expected date: 10/10/2024 - COMPREHENSIVE METABOLIC PANEL; Future; Expected date: 10/10/2024 - PHOSPHORUS; Future; Expected date: 10/10/2024 - MAGNESIUM; Future; Expected date: 10/10/2024 Hemorrhoids, external without complications Refill topical steroid to use PRN - Hydrocortisone 2.5 % External Cream; apply to rectal area every 8 hours as needed for irritation. Knee pain Injected today at patient request, see notes below PLAN: Follow up in 3 month(s) with PCP or PRN prior I spent a total of 30-39 minutes (exact time 32 mins) minutes on the date of service in preparation, delivery, and documentation of the care provided to Batsheva Dorothy Cardenas excluding any time spent in performance of separately billed services. MD Batsheva Montiel is a 74 year old female patient. ICD-10-CM 1. Hospital discharge follow-up Z09 2. Hyponatremia E87.1 3. Generalized weakness R53.1 4. Hemorrhoids, external without complications K64.4 5. Primary osteoarthritis of both knees M17.0 Past Medical History: Diagnosis Date Abnormal mammogram [...] Strep sore throat 08/09/06 treated with pcn Blood pressure 130/70, pulse 68, temperature 98.6 F (37 C), temperature source Tympanic, height5' 4" (1.626 m), weight 165 lb 6.4 oz (75 kg), SpO2 96%. Arthrocentesis Date/Time: 10/10/2024 2:37 PM Performed by: Liss Galindo MD Authorized by: Liss Galindo MD Indications: joint swelling and pain Body area: knee Joint: right knee Sedation: Patient sedated: no Needle size: 25 G Ultrasound guidance: no Approach: lateral Methylprednisolone amount: 40 mg Lidocaine 1% amount: 2 mL Patient tolerance: patient tolerated the procedure well with no immediate complications Arthrocentesis Date/Time: 10/10/2024 2:37 PM Performed by: Liss Galindo MD Authorized by: Liss Galindo MD Indications: joint swelling and pain Body area: knee Joint: left knee Needle size: 25 G Ultrasound guidance: no Approach: lateral Methylprednisolone amount: 40 mg Lidocaine 1% amount: 2 mL Patient tolerance: patient tolerated the procedure well with no immediate complications Liss Anderson MD 10/10/2024 documented in this encounter Nursing Notes * Cheyenne Ryder CMA - 10/10/2024 2:06 PM EST Here for hospital f/u was in ER 12/9/24 for all over body pain from Head to foot, couldn't close hands they hurt so bad. Pt was dx with UTI and was given 3 days of Iv Abx . Here to f/u and go over labs. documented in this encounter Plan of Treatment Upcoming Encounters Date Type Department Care Team (Late st Contact Info) Description 11/06/2024 2:00 PM EST Office Visit Audiology [facility] [address] [place] [phone] Coleen Flores Au.D. [address] [place] [phone] 01/23/2025 10:30 AM EDT Office Visit Family Medicine [address] [place] [phone] [address] [place] [address] Pending Results Name Type Priority Associated Diagnoses Date /Time CBC Lab Routine Hyponatremia Generalized weakness 10/10/2024 2:39 PM EST COMPREHENSIVE METABOLIC PANEL Lab Routine Hyponatremia Generalized weakness 10/10/2024 2:39 PM EST PHOSPHORUS Lab Routine Hyponatremia Generalized weakness 10/10/2024 2:39 PM EST MAGNESIUM Lab Routine Hyponatremia Generalized weakness 10/10/2024 2:39 PM EST Scheduled Orders Name Type Priority Associated Diagnoses Orde r Schedule CBC Lab Routine Hyponatremia Generalized weakness Expected: 10/10/2024 (Approximate), Expires: 10/10/2025 COMPREHENSIVE METABOLIC PANEL Lab Routine Hyponatremia Generalized weakness Expected: 10/10/2024 (Approximate), Expires: 10/10/2025 PHOSPHORUS Lab Routine Hyponatremia Generalized weakness Expected: 10/10/2024 (Approximate), Expires: 10/10/2025 MAGNESIUM Lab Routine Hyponatremia Generalized weakness Expected: 10/10/2024 (Approximate), Expires: 10/10/2025 Scheduled Procedures Name Priority Associated Diagnoses Date/Ti [...] Not on filedocumented as of this encounter Procedures Procedure Name Priority Date/Time Associated Diagnosis Comments NH ARTHROCENTESIS ASPIR&/INJ MAJOR JT/BURSA W/O US Routine 10/10/2024 2:37 PM EST Primary osteoarthritis of both knees NH ARTHROCENTESIS ASPIR&/INJ MAJOR JT/BURSA W/O US Routine 10/10/2024 2:37 PM EST Primary osteoarthritis of both knees documented in this encounter Results * NH ARTHROCENTESIS ASPIR&/INJ MAJOR JT/BURSA W/O US (10/10/2024 2:37 PM EST) Narrative Liss Galindo MD - 10/10/2024 2:37 PM EST Liss Galindo MD 10/10/2024 2:54 PM Arthrocentesis Date/Time: 10/10/2024 2:37 PM Performed by: Liss Galindo MD Authorized by: Liss Galindo MD Indications: joint swelling and pain Body area: knee Joint: left knee Needle size: 25 G Ultrasound guidance: no Approach: lateral Methylprednisolone amount: 40 mg Lidocaine 1% amount: 2 mL Patient tolerance: patient tolerated the procedure well with no immediate complications Liss Valdes MD PROCDOC FORM Final Result * NH ARTHROCENTESIS ASPIR&/INJ MAJOR JT/BURSA W/O US (10/10/2024 2:37 PM EST) Narrative Liss Galindo MD - 10/10/2024 2:37 PM EST Liss Galindo MD 10/10/2024 2:54 PM Arthrocentesis Date/Time: 10/10/2024 2:37 PM Performed by: Liss Galindo MD Authorized by: Liss Galindo MD Indications: joint swelling and pain Body area: knee Joint: right knee Sedation: Patient sedated: no Needle size: 25 G Ultrasound guidance: no Approach: lateral Methylprednisolone amount: 40 mg Lidocaine 1% amount: 2 mL Patient tolerance: patient tolerated the procedure well with no immediate complications Result [facility] Liss Valdes MD PROCDOC FORM Final Result documented in this encounter Visit Diagnoses Diagnosis Hospital discharge follow-up- Primary Other follow-up examination Hyponatremia Hyposmolality and/or hyponatremia Generalized weakness Other malaise and fatigue Hemorrhoids, external without complications External hemorrhoids without mention of complication Primary osteoarthritis of both knees Primary localized osteoarthrosis, lower leg documented in this encounter Administered Medications Inactive Administered Medications - up to 3 most recent administrations Medication Order MAR Action Action Date Dose Rate Site Lidocaine-EPINEPHrine 1 %-1:606553 inj 20 mg 20 mg (2 mL), Injection, ONCE, On Wed10/10/24 at 1530, For 1 doseIndications:Primary osteoarthritis of both knees Given 10/10/2024 3:07 PM EST 20 mg Knee Left Lidocaine-EPINEPHrine 1 %-1:669968 inj 20 mg 20 mg (2 mL), Injection, ONCE, On Wed10/10/24 at 1530, For 1 doseIndications:Primary osteoarthritis of both knees Given 10/10/2024 3:06 PM EST 20 mg Knee Right methylPREDNISolone acetate (Depo-Medrol) 40 MG/ML inj 40 mg 40 mg, Intra-Articular, ONCE, On Wed10/10/24 at 1530, For 1 doseIndications:Primary osteoarthritis of both knees Given 10/10/2024 3:08 PM EST 40 mg Knee Left methylPREDNISolone acetate (Depo-Medrol) 40 MG/ML inj 40 mg 40 mg, Intra-Articular, ONCE, On Wed10/10/24 at 1530, For 1 doseIndications:Primary osteoarthritis of both knees Given 10/10/2024 3:07 PM EST 40 mg Knee Right documented in this encounter Care Teams Carnival Worker Relationship Specialty Start Date End Date Liss Penn DO [address] [place] [address] [place] [address] PCP - General Internal Medicine 07/02/17 documented as of this encounter
--- OUTSIDE RECORDS SUMMARY | 2024-10-18 19:45 | External Medical Summary | Summary of Care ---
Author Name Unknown Organization [facility] Address [address] [place] [address] Phone [phone] Care Team Providers Care Speech Language Pathologist Assistant Name Role Phone Liss Penn DO Primary Care Provider Encounter Details Date Type Department Care Team (Late st Contact Info) Description 10/11/2024 Orders Only Family Medicine [address] [phone] Liss Penn DO [address] [place] [address] [place] [address] Allergies Active Allergy Reactions Criticality Noted Date Comments Lovastatin Muscle pain Medium 09/22/2006 Metformin 08/19/2018 Diarrhea Niacin Er (Antihyperlipidemic) Flushing Low 08/19/2010 Nsaids Other (Please comment) Medium 10/13/2011 GERD Simvastatin 05/17/2001 elevated LFTs documented as of this encounter (statuses as of 10/11/2024) Medications Glucose Blood (ONETOUCH VERIO) STRP Tests blood sugar daily 1 Box Dosing Unit 5 7 Active aspirin 81 MG chewable tablet Take 1 Tablet by mouth in the morning. with food.. 100 Tab 5 7 Active Vitamin B 12 500 MCG Oral Tablet Take by mouth. Active Magnesium 400 MG Oral Tablet Take 1 tablet by mouth daily 1 Tablet 08/12/202 2 Active Atorvastatin Calcium 40 MG Oral [...] as of this encounter (statuses as of 10/11/2024) Active Problems Problem Noted Date Diagnosed Date Diabetic peripheral neuropathy 10/27/2023 Iron deficiency anemia 06/05/2022 Nonrheumatic aortic valve insufficiency 12/24/19 22 half-way current use of therapeutic drug 08/11/ 2021 H/O cold sores 08/19/2018 Primary osteoarthritis of [...] as of this encounter (statuses as of 10/11/2024) Resolved Problems Problem Noted Date Diagnosed Date [...] ROTATOR CUFF SYND NOS 05/07/20032017 LOC PRIM [id number] 05/07/200305/2017 Major depressive disorder Overview (08/17/2017): ICD-10 update of inactive term Elevated liver enzymes 08/16 Mixed dyslipidemia 9 Overview (10/03/2009): Per Lipid Taxonomy. 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 Not on file Not on file Not on file documented as of this encounter Plan of Treatment Upcoming Encounters Date Type Department Care Team (Late st Contact Info) Description 11/06/2024 2:00 PM EST Office Visit Audiology [facility] [address] [place] [address] Coleen Flores Au.D. [address] [place] [phone] 01/23/2025 10:30 AM EDT Office Visit Family Medicine [address] [phone] Liss Penn, [address] [place] [address] Scheduled Procedures Name [...] 12/12/2021, Additional history exists HbA1c 12/03/2024 06/02/2024, 12/2023, [...] Procedure Name Priority Date/Time Associated Diagnosis Comments CHEMISTRY-OUTSIDE Routine 10/05/2024 documented in this encounter Results * (ABNORMAL) CHEMISTRY-OUTSIDE (10/05/2024) Not all results display below - see scan for full detail SCAN INCLUDES: INPT [facility]: CBC, OUTSIDE LAB (SEE SCANNED REPORT) CREATININE OUTSIDE L AB (SEE SCANNED REPORT) EGFR OUTSIDE LA B (SEE SCANNED REPORT) POTASSIUM OUTSIDE LA B (SEE SCANNED REPORT) GLUCOSE OUTSIDE LA B (SEE SCANNED REPORT) HOURS FASTING OUTSID E LAB (SEE SCANNED REPORT) TRIGLYCERIDES-OUT SIDE LAB OUTSIDE LAB (SEE SCANNED REPORT) CHOLESTEROL-OUTSI DE LAB OUTSIDE LAB (SEE SCANNED REPORT) HDL-OUTSIDE LAB OUTS [facility] (SEE SCANNED REPORT) CHOL/HDL RATIO-OUTSIDE LAB OUTSIDE LA B (SEE SCANNED REPORT) LDL (CALCULATED)-OUTS [facility] OUTSIDE LAB (SEE SCANNED REPORT) LDL (DIRECT MEASURE)-OUTSIDE LAB OUTSIDE LAB (SEE SCANNED REPORT) HEMOGLOBIN, G4S-ODVTLIM LAB OUTSIDE LAB (SEE SCANNED REPORT) PHOSPHORUS-OUTSID E LAB OUTSIDE LAB (SEE SCANNED REPORT) PTH-OUTSIDE LAB OUTS [facility] (SEE SCANNED REPORT) MICROALBUMIN RATIO-OUTSIDE LAB OUTSIDE LA B (SEE SCANNED REPORT) PROTEIN, UA-OUTSIDE LAB OUTSIDE LAB (SEE SCANNED REPORT) HGB 11.7(A) 12.0 - 16.0 G/DL OUTSIDE LAB (SEE SCANNED REPORT) 10/05/2024 us Yovanny Caldwell MD LABORATORY Final Result OUTSIDE LAB (SEE SCANNED REPORT) documented in this encounter Care Teams Speech Language Pathologist Assistant Relationship Specialty Start Date End Date Liss Penn DO [address] [place] [address] [place] [phone] PCP - General Internal Medicine 07/02/17 documented as of this encounter
--- OUTSIDE RECORDS SUMMARY | 2024-10-18 19:45 | External Medical Summary | Summary of Care ---
Author Name Unknown Organization [facility] Address [address] [place] [address] Phone [phone] Care Team Providers Care Recording Engineer Name Role Phone PennLiss bach Primary Care Provider Reason for Visit * Reason Comments Outpatient Testing Encounter Details Date Type Department Care Team (Late st Contact Info) Description 10/10/2024 2:40 PM EST Laboratory Laboratory [address] [place] [phone] [place] [address] [employer] Other*[id number]; Hyponatremia; Generalized weakness Allergies Active Allergy Reactions Criticality Noted Date [...] 06/05/2022 Nonrheumatic aortic valve insufficiency 12/24/19 22 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 [address] [place] [address] 01/23/2025 10:30 AM EDT Office Visit Family Medicine [address] [place] [phone] [place] [address] Pending Results Name Type Priority Associated Diagnoses Date /Time MYCODE INITIAL ADULT Lab Routine [employer] Other*[id number] 10/10/2024 2:39 PM EST CBC Lab Routine Hyponatremia Generalized weakness 10/10/2024 2:39 PM EST COMPREHENSIVE METABOLIC PANEL Lab Routine Hyponatremia Generalized weakness 10/10/2024 2:39 PM EST PHOSPHORUS Lab Routine Hyponatremia Generalized weakness 10/10/2024 2:39 PM EST MAGNESIUM Lab Routine Hyponatremia Generalized weakness 10/10/2024 2:39 PM EST MYCODE INITIAL ADULT-PINK Lab Routine [employer] Other*[id number] 10/10/2024 2:39 PM EST MYCODE SST1 Lab Routine [employer] Other*[id number] 10/10/2024 2:39 PM EST MYCODE SST2 Lab Routine [employer] Other*[id number] 10/10/2024 2:39 PM EST Scheduled Procedures Name Priority Associated Diagnoses Date/Ti [...] this encounter Visit Diagnoses Diagnosis [employer] Other*[id number] Hyponatremia Hyposmolality and/or hyponatremia Generalized weakness Other malaise and fatigue documented in this encounter Care Teams Recording Engineer Relationship Specialty Start Date End Date Liss Penn DO [address] [place] [address] [place] [phone] PCP - General Internal Medicine 07/02/17 documented as of this encounter
--- OUTSIDE RECORDS SUMMARY | 2024-10-18 19:45 | External Medical Summary | Summary of Care ---
Author Name Unknown Organization [facility] Address [address] [place] [address] Phone [phone] Care Team Providers Care Test Engineer Name Role Phone Liss Penn Primary Care Provider Reason for Visit * Reason Onset Date Comments Hospital Follow-Up Hospital Follow-Up 10/10/2024 Encounter Details Date Type Department Care Team (Latest Contact Info) Description 10/10/2024 2:00 PM EST Office Visit Family Medicine [address] [phone] Liss Galindo MD [address] [place] [address] [place] [phone] Hospital discharge follow-up*; Hyponatremia; [...] IX ONCE 10/10/2024 10/10/2024 Ended Lidocaine-EPINEPHrine 1 %-1:095024 inj 20 mgIndications:Primary osteoarthritis of both knees 20 mg IJ ONCE 10/10/2024 10/10/2024 Ended Lidocaine-EPINEPHrine 1 %-1:201012 inj 20 mgIndications:Primary osteoarthritis of both knees 20 mg IJ ONCE 10/10/2024 10/10/2024 Ended documented as of this encounter (statuses as of 10/10/2024) Active Problems Problem Noted Date Diagnosed Date Diabetic peripheral neuropathy 10/27/2023 Iron deficiency anemia 06/05/2022 Nonrheumatic aortic valve insufficiency 12/24/19 22 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 Talk to your [...] to get rid of medicine: Call your [facility] or [facility]'s household trash and recycling service and ask if a drug take-back program is available in your community. Call your local pharmacy and ask the right way to get rid of the medicine. Go to http://www.fda.gov/ForConsumers/ConsumerUpdates/zez191552 to learn how to get rid of [...] brand-name medicine, unless their doctor says otherwise. [address] [facility], [address] [place] [address], [place] [address]. All rights reserved. This information is not [...] Recent Admission: Patient was recently admitted to [facility] on 10/02. 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 [address] [place] [address] 01/23/2025 10:30 AM EDT Office Visit Family Medicine [address] [place] [phone] [address] [place] [address] Pending Results Name Type Priority Associated Diagnoses [...] Procedure Name Priority Date/Time Associated Diagnosis Comments [place] ARTHROCENTESIS ASPIR&/INJ MAJOR JT/BURSA W/O US Routine 10/10/2024 2:37 PM EST Primary osteoarthritis of both knees [place] ARTHROCENTESIS ASPIR&/INJ MAJOR JT/BURSA W/O US Routine 10/10/2024 2:37 PM EST Primary osteoarthritis of both knees documented in this encounter Results * [place] ARTHROCENTESIS ASPIR&/INJ MAJOR JT/BURSA W/O US (10/10/2024 [...] Valdes MD PROCDOC FORM Final Result * [place] ARTHROCENTESIS ASPIR&/INJ MAJOR JT/BURSA W/O US (10/10/2024 [...] procedure well with no immediate complications Result [facility] Liss Valdes MD PROCDOC FORM [...] Action Date Dose Rate Site Lidocaine-EPINEPHrine 1 %-1:066590 inj 20 mg 20 mg (2 mL), Injection, ONCE, On Wed10/10/24 at 1530, For 1 doseIndications:Primary osteoarthritis of both knees Given 10/10/2024 3:07 PM EST 20 mg Knee Left Lidocaine-EPINEPHrine 1 %-1:646916 inj 20 mg 20 mg (2 mL), [...] Right documented in this encounter Care Teams Test Engineer Relationship Specialty Start Date End Date Liss Penn DO [address] [place] [address] [place] [address] PCP - General Internal Medicine 07/02/17 documented as of this encounter
--- OUTSIDE RECORDS SUMMARY | 2024-10-18 19:45 | External Medical Summary | Summary of Care ---
Author Name Unknown Organization [facility] Address [address] [place] [address] Phone [phone] Care Team Providers Care Second Chef Name Role Phone Liss Penn Primary Care Provider Encounter Details Date Type Department Care Team (Late st Contact Info) Description 10/16/2024 Orders Only Outcomes Research Department [address] [place] [address] Analia Robles CHRA [employer] Other*[id number] Allergies Active Allergy Reactions Criticality Noted Date Comments Lovastatin Muscle pain Medium 09/22/2006 Metformin 08/19/2018 Diarrhea Niacin Er (Antihyperlipidemic) Flushing Low 08/19/2010 Nsaids Other (Please comment) Medium 10/13/2011 GERD Simvastatin 05/17/2001 elevated LFTs documented as of this encounter (statuses as of 10/16/2024) Medications Glucose Blood (ONETOUCH VERIO) STRP Tests [...] as of this encounter (statuses as of 10/16/2024) Active Problems Problem Noted Date Diagnosed Date Diabetic peripheral neuropathy 10/27/2023 Iron deficiency anemia 06/05/2022 Nonrheumatic aortic valve insufficiency 12/24/19 22 prison current use of therapeutic drug 2020 H/O [...] as of this encounter (statuses as of 10/16/2024) Resolved Problems Problem Noted Date Diagnosed Date [...] ROTATOR CUFF SYND NOS 05/07/20032017 LOC PRIM [id number] 05/07/2003 09/0 05/2017 Major depressive disorder Overview (08/17/2017): ICD-10 update of inactive term Elevated liver enzymes 08/16 Mixed dyslipidemia 9 Overview (10/03/2009): Per Lipid Taxonomy. 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 [address] [place] [address] 01/23/2025 10:30 AM EDT Office Visit Family Medicine [address] [place] [phone] Liss Penn [address] [place] [address] Scheduled Orders Name Type Priority Associated Diagnoses Orde r Schedule MYCODE SUBSEQUENT ADULT Lab Routine [employer] Other*[id number] Every 6 Months for 2 Occurrences starting 10/16/2024 until 11/05/2025 Scheduled Procedures Name Priority Associated Diagnoses Date/Ti [...] 12/12/2021, Additional history exists HbA1c 12/03/2024 06/02/2024, 0112/2023, 12/10/2022, Additional history exists Diabetic Foot Exam [...] this encounter Visit Diagnoses Diagnosis [employer] Other*[id number] documented in this encounter Care Teams Second Chef Relationship Specialty Start Date End Date Liss Penn DO [address] [place] [address] [place] [address] PCP - General Internal Medicine 07/02/17 documented as of this encounter
--- OUTSIDE RECORDS SUMMARY | 2024-10-18 19:45 | External Medical Summary | Summary of Care ---
Author Name Unknown Organization [facility] Address [address] [place] [address] Phone [phone] Care Team Providers Care Derrick Worker Name Role Phone Rajan Penn Primary Care Provider [phone] Reason for Visit * Reason Onset Date Comments Hospital Follow-Up Hospital Follow-Up 10/10/2024 Encounter Details Date Type Department Care Team (Latest Contact Info) Description 10/10/2024 2:00 PM EST Office Visit Family Medicine [address] [phone] Rajan Galindo MD [address] [place] [address] [place] [phone] Hospital discharge follow-up*; Hyponatremia; Generalized weakness; Hemorrhoids, external without complications; Primary osteoarthritis of both knees; Hyperkalemia Allergies Active Allergy Reactions Criticality Noted Date [...] IX ONCE 10/10/2024 10/10/2024 Ended Lidocaine-EPINEPHrine 1 %-1:309606 inj 20 mgIndications:Primary osteoarthritis of both knees 20 mg IJ ONCE 10/10/2024 10/10/2024 Ended Lidocaine-EPINEPHrine 1 %-1:974510 inj 20 mgIndications:Primary osteoarthritis of both knees 20 mg IJ ONCE 10/10/2024 10/10/2024 Ended documented as of this encounter (statuses as of 10/11/2024) Active Problems Problem Noted Date Diagnosed Date Diabetic peripheral neuropathy 10/27/2023 Iron deficiency anemia 06/05/2022 Nonrheumatic aortic valve insufficiency 12/24/19 22 USP current use of therapeutic drug 2020 H/O [...] ROTATOR CUFF SYND NOS 05/07/20032017 LOC PRIM [id number] 05/07/2003 0905/2017 Major depressive disorder Overview (08/17/2017): ICD-10 update [...] mRNA, LNP-s, No Pre serve, 2-Dose Series (Mobiplex) 09/12/2021,01/29/2021,01/08/2021 Covid-19, Mrna, Lnp-s, Pf, B ivalent, 30 Mcg, IM, 12 yrs and above (Mobiplex) 09/08/2022 Pneumococcal Conjugate Vacc, 13 Valent (Prevnar) 03/05/2015 Pneumococcal Polysaccharide PPV23 (Pneumovax) 08/19/2018,10/04/2012 Season Influenza, Quad, PF, Adjuvanted, 65+ Yrs, IM (FLUAD) 08/20/2020 Seasonal Influenza Vac., MDV , IM, 0.5 mL (Fluzone) 09/05/2014,07/06/2013,08/03/2012,1111/2010,08/19/2010,08/16/2009,08/03/20 08,09/01/2007,08/24/2006,09/11/2005,1 10/30/2002,09/11/2002,09/19/2001 08/30/2004 Seasonal Influenza, PF, 6 [...] file Not on file Not on file 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 Talk to your [...] to get rid of medicine: Call your [facility] or [facility]'s household trash and recycling service and ask if a drug take-back program is available in your community. Call your local pharmacy and ask the right way to get rid of the medicine. Go to http://www.fda.gov/ForConsumers/ConsumerUpdates/pok229215 to learn how to get rid of [...] brand-name medicine, unless their doctor says otherwise. 3389-7059 [facility], [address] [place] [address], [place] [address]. All rights reserved. This information is not intended as a substitute for professional medical care. Always follow your healthcare professional's instructions. documented in this encounter Progress Notes * Rajan Galindo MD - 10/10/2024 2:00 PM ESTAssociated Order(s): Arthrocentesis; Arthrocentesis Post-Procedure Diagnose(s): Primary osteoarthritis of both knees SUBJECTIVE: Batsheva Cardenas is a 74 year old female. Chief Complaint Patient presents with Hospital Follow-Up Hospital Follow-Up Recent Admission: Patient was recently admitted to [facility] on 10/02. The date of discharge was [...] osteoarthritis of both knees H/O cold sores USP current use of therapeutic drug Nonrheumatic aortic [...] documentation of the care provided to Batsheva Cardenas excluding any time spent in performance of separately billed services. Rajan Anderson MD Batsheva Cardenas is a 74 year old female patient. [...] Arthrocentesis Date/Time: 10/10/2024 2:37 PM Performed by: Rajan Galindo MD Authorized by: Rajan Galindo MD Indications: joint swelling and pain Body area: knee Joint: right knee Sedation: Patient sedated: no Needle size: 25 G Ultrasound guidance: no Approach: lateral Methylprednisolone amount: 40 mg Lidocaine 1% amount: 2 mL Patient tolerance: patient tolerated the procedure well with no immediate complications Arthrocentesis Date/Time: 10/10/2024 2:37 PM Performed by: Rajan Galindo MD Authorized by: Rajan Galindo MD Indications: joint swelling and pain Body area: knee Joint: left knee Needle size: 25 G Ultrasound guidance: no Approach: lateral Methylprednisolone amount: 40 mg Lidocaine 1% amount: 2 mL Patient tolerance: patient tolerated the procedure well with no immediate complications Rajan Anderson MD 10/10/2024 documented in this encounter Nursing Notes * Cheyenne Ryder CMA - 10/10/2024 2:06 PM EST Here for hospital f/u was in ER 10/02/24 for all over body pain from Head to foot, couldn't close hands they hurt so bad. Pt was dx with UTI and was given 3 days of Iv Abx . Here to f/u and go over labs. documented in this encounter Miscellaneous Notes * Addendum Note - Rajan Galindo MD - 10/11/2024 7:27 AM EST Addended by: RAJAN GALINDO on: 10/11/2024 07:27 AM Modules accepted: Orders documented in this encounter Plan of Treatment Upcoming Encounters Date Type Department Care Team (Late st Contact Info) Description 11/06/2024 2:00 PM EST Office Visit Audiology [facility] [address] [place] [address] Coleen Flores Au.D. [address] [place] [address] 01/23/2025 10:30 AM EDT Office Visit Family Medicine [address] [place] [phone] Rajan Penn [address] [place] [address] Scheduled Orders Name Type Priority Associated Diagnoses Orde r Schedule POTASSIUM Lab Routine Hyperkalemia Expected: 10/18/2024 (Approximate), Expires: 10/11/2025 Scheduled Procedures Name Priority Associated Diagnoses Date/Ti [...] Procedure Name Priority Date/Time Associated Diagnosis Comments [place] ARTHROCENTESIS ASPIR&/INJ MAJOR JT/BURSA W/O US Routine 10/10/2024 2:37 PM EST Primary osteoarthritis of both knees WI ARTHROCENTESIS ASPIR&/INJ MAJOR JT/BURSA W/O US Routine 10/10/2024 2:37 PM EST Primary osteoarthritis of both knees documented in this encounter Results * MAGNESIUM (10/10/2024 2:39 PM EST) Magnesium 2.3 1.5 - 2.6 mg/dL 10/11/2024 12:07 AM EST LABORATORY [facility] Blood Venous blood specimen / Unknown Venipuncture / Unknown 10/10/2024 2:39 PM EST 10/10/2024 2:39 PM EST us Rajan Valdes MD LAB BLOOD ORDERA BLES Final Result Performing Organization Address City/[facility]/ZIP Co de Phone Number LABORATORY [facility] [address] [place] [address] * PHOSPHORUS (10/10/2024 2:39 PM EST) Phosphorus 4.7 2.5 - 4.8 mg/dL 10/11/2024 12:07 AM EST LABORATORY [facility] Blood Venous blood specimen / Unknown Venipuncture / Unknown 10/10/2024 2:39 PM EST 10/10/2024 2:39 PM EST us Rajan Valdes MD LAB BLOOD ORDERA BLES Final Result Performing Organization Address City/[facility]/ZIP Co de Phone Number LABORATORY [facility] [address] [place] [address] * (ABNORMAL) COMPREHENSIVE METABOLIC PANEL (10/10/2024 2:39 PM EST) BUN 12 6 - 20 mg/dL 10/11/2024 12:07 AM EST [facility] CREATININE 0.8 0.5 - 1.0 mg/dL 10/11/2024 12:07 AM EST [facility]AT[facility] EGFR 80 >=60 mL/min 10/11/2024 12:07 AM EST LABORATORY [facility] Comment:eGFR is calculated b ased on the CKD-EPI 2020 equation. SODIUM 140 135 - 146 mmol/L 10/11/2024 12:07 AM EST LAB[facility]ATORY [facility] POTASSIUM 5.5(H) 3.5 - 5.1 mmol/L 10/11/2024 12:07 AM EST [facility] CHLORIDE 101 98 - 107 mmol/L 10/11/2024 12:07 AM EST LAB[facility]ATORY [facility] CO2 29 22 - 32 mmol/L 10/11/2024 12:07 AM EST LAB[facility]ATORY [facility] ANION GAP 10 7 - 15 mmol/L 10/11/2024 12:07 AM EST [facility] GLUCOSE 77 70 - 120 mg/dL 10/11/2024 12:07 AM EST LAB[facility] Albumin 4.3 3.8 - 5.0 g/dL 10/11/2024 12:07 AM EST [facility] AST 27 10 - 35 U/L 10/11/2024 12:07 AM EST [facility] Alkaline Phosphatase 105 35 - 130 U/L 10/11/2024 12:07 AM EST [facility] Bilirubin, Total 0.6 <=1.2 mg/dL 10/11/2024 12:07 AM EST [facility] CALCIUM 9.8 8.4 - 10.2 mg/dL 10/11/2024 12:07 AM EST [facility] Protein 7.2 6.0 - 8.3 g/dL 10/11/2024 12:07 AM EST [facility] ALT 20 10 - 35 U/L 10/11/2024 12:07 AM EST [facility] Blood Venous blood specimen / Unknown Venipuncture / Unknown 10/10/2024 2:39 PM EST 10/10/2024 2:39 PM EST us Rajan Valdes MD LAB BLOOD ORDERA BLES Final Result LAB[facility]ATORY [facility] [address] [place] [id number] * CBC (10/10/2024 2:39 PM EST) WBC 9.43 4.00 - 10.80 K/uL 10/10/2024 11:55 PM EST LAB[facility]ATORY [facility] RBC 4.84 3.85 - 5.15 M/uL 10/10/2024 11:55 PM EST LAB[facility]ORY [facility] HGB 13.6 12.0 - 15.3 g/dL 10/10/2024 11:55 PM EST [facility] HCT 43.4 36.0 - 45.2 % 10/10/2024 11:55 PM EST [facility] MCV 89.7 81.5 - 97.5 fL 10/10/2024 11:55 PM EST LAB[facility]ORY [facility] MCH 28.1 27.0 - 34.0 pg 10/10/2024 11:55 PM EST LAB[facility] MCHC 31.3 32.0 - 36.0 g/dL 10/10/2024 11:55 PM EST [facility] RDW 13.5 11.5 - 15.5 % 10/10/2024 11:55 PM EST [facility] PLT 340 140 - 400 K/uL 10/10/2024 11:55 PM EST [facility] MPV 10.1 6.6 - 11.1 fL 10/10/2024 11:55 PM EST LAB[facility] nRBCs 0 <=0 /100 WBCs 10/10/2024 11:55 PM EST [facility] Blood Venous blood specimen / Unknown Venipuncture / Unknown 10/10/2024 2:39 PM EST 10/10/2024 2:39 PM EST us Rajan Valdes MD LAB BLOOD ORDERA BLES Final Result LABORATORY [facility] [address] [place] [address] * [place] ARTHROCENTESIS ASPIR&/INJ MAJOR JT/BURSA W/O US (10/10/2024 2:37 PM EST) Narrative Rajan Galindo MD - 10/10/2024 2:37 PM EST Rajan Galindo MD 10/10/2024 2:54 PM Arthrocentesis Date/Time: 10/10/2024 2:37 PM Performed by: Rajan Galindo MD Authorized by: Rajan Galindo MD Indications: joint swelling and pain Body area: knee Joint: left knee Needle size: 25 G Ultrasound guidance: no Approach: lateral Methylprednisolone amount: 40 mg Lidocaine 1% amount: 2 mL Patient tolerance: patient tolerated the procedure well with no immediate complications us Rajan Valdes MD PROCDOC FORM Final Result * [place] ARTHROCENTESIS ASPIR&/INJ MAJOR JT/BURSA W/O US (10/10/2024 2:37 PM EST) Narrative Rajan Galindo MD - 10/10/2024 2:37 PM EST Rajan Galindo MD 10/10/2024 2:54 PM Arthrocentesis Date/Time: 10/10/2024 2:37 PM Performed by: Rajan Galindo MD Authorized by: Rajan Galindo MD Indications: joint swelling and pain Body area: knee Joint: right knee Sedation: Patient sedated: no Needle size: 25 G Ultrasound guidance: no Approach: lateral Methylprednisolone amount: 40 mg Lidocaine 1% amount: 2 mL Patient tolerance: patient tolerated the procedure well with no immediate complications Rajan Valdes MD PROCDOC FORM Final Result documented in this encounter Visit Diagnoses Diagnosis Hospital discharge follow-up- Primary Other follow-up examination Hyponatremia Hyposmolality and/or hyponatremia Generalized weakness Other malaise and fatigue Hemorrhoids, external without complications External hemorrhoids without mention of complication Primary osteoarthritis of both knees Primary localized osteoarthrosis, lower leg Hyperkalemia Hyperpotassemia documented in this encounter Administered Medications Inactive Administered Medications - up to 3 most recent administrations Medication Order MAR Action Action Date Dose Rate Site Lidocaine-EPINEPHrine 1 %-1:265754 inj 20 mg 20 mg (2 mL), Injection, ONCE, On Wed10/10/24 at 1530, For 1 doseIndications:Primary osteoarthritis of both knees Given 10/10/2024 3:07 PM EST 20 mg Knee Left Lidocaine-EPINEPHrine 1 %-1:829957 inj 20 mg 20 mg (2 mL), [...] Right documented in this encounter Care Teams Derrick Worker Relationship Specialty Start Date End Date Rajan Penn DO [address] [place] [address] [place] [address] PCP - General Internal Medicine 07/02/17 documented as of this encounter
--- OUTSIDE RECORDS SUMMARY | 2024-10-18 19:45 | External Medical Summary | Summary of Care ---
Author Name Unknown Organization [facility] Address [address] [place] [address] Phone [phone] Care Team Providers Care Museum Preparator Name Role Phone Liss Penn Primary Care Provider [phone] Reason for Visit * Reason Onset Date Comments Hospital Follow-Up 10/06/2024 Encounter Details Date Type Department Care Team ([facility] st Contact Info) Description 10/06/2024 Telephone Family Medicine [address] [phone] Laurie Oliver, FRANC[facility] Hospital Follow-Up Allergies Active Allergy Reactions Criticality Noted Date [...] THE MORNING 90 Capsule 2 4 Active documented as of this encounter (statuses as of 10/13/2024) Active Problems Problem Noted Date Diagnosed Date Diabetic peripheral neuropathy 10/27/2023 Iron deficiency anemia 06/05/2022 Nonrheumatic aortic valve insufficiency 12/24/19 22 skilled nursing current use of therapeutic drug 2020 H/O [...] ROTATOR CUFF SYND NOS 05/07/20032017 LOC PRIM [id number] 05/07/200305/2017 Major depressive disorder Overview (08/17/2017): ICD-10 [...] mRNA, LNP-s, No Pre serve, 2-Dose Series (NormOxys) 09/12/2021,01/29/2021,01/08/2021 Covid-19, Mrna, Lnp-s, Pf, B ivalent, [...] file Not on file Not on file 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 Not on file Not on file Not on malcolm 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[employer], 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 Not on file Not on file Not on file documented as of this encounter Miscellaneous Notes * Telephone Encounter - Laurie Oliver RN - 10/06/2024 9:35 AM EST Transitions of Care Note Reason for Referral:Recent Admission Phone visit for follow up: SHA Admitted to: [facility], Date: 10/02 Discharged to: home, Date: 10/05 Diagnosis driving hospitalization: Generalized Attempted Phone Call First Attempt Call Outcome Left Voicemail/Message documented in this encounter Plan of Treatment Upcoming Encounters Date Type Department Care Team (Late st Contact Info) Description 11/06/2024 2:00 PM EST Office Visit Audiology [facility] [address] [facility] [place] [phone] Coleen Flores Au.D. [address] [facility] [place] [address] 01/23/2025 10:30 AM EDT Office Visit Family Medicine [address] [place] [phone] [address] [place] [id number] Scheduled Procedures Name Priority Associated Diagnoses Date/Ti [...] filedocumented as of this encounter Care Teams Museum Preparator Relationship Specialty Start Date End Date Liss Penn DO [address] [place] [address] [place] [phone] PCP - General Internal Medicine 07/02/17 documented as of this encounter
--- OUTSIDE RECORDS SUMMARY | 2024-10-18 19:46 | External Medical Summary ---
Author Name Unknown Address Unknown Organization [id number]:LABORATORY [facility] [place] - [facility] [address] Laboratory Report Ordering Provider Test Date Status BRISEYDA TOLENTINO 10/10/2024 14:39:14 Final Observation Date Value Abnormality Reference (Units ) Status WBC, Total 10/10/2024 14:39:14 9.43 4.00-10.80 (K/uL) Final RBC 10/10/2024 14:39:14 4.84 3.85-5.15 (M/uL) Final Hemoglobin 10/10/2024 14:39:14 13.6 12.0-15.3 (g/dL) Final HCT 10/10/2024 14:39:14 43.4 36.0-45.2 (%) Final MCV 10/10/2024 14:39:14 89.7 81.5-97.5 (fL) Final MCH 10/10/2024 14:39:14 28.1 27.0-34.0 (pg) Final MCHC 10/10/2024 14:39:14 31.3 32.0-36.0 (g/dL) Final RDW 10/10/2024 14:39:14 13.5 11.5-15.5 (%) Final Platelets 10/10/2024 14:39:14 340 140-400 (K/uL) Final MPV 10/10/2024 14:39:14 10.1 6.6-11.1 (fL) Final Nucleated erythrocytes/100 leukocytes [Ratio] in Blood by Automated count 10/10/2024 14:39:14 0 <=0 (/100 WBCs) Final Performing Location LABORATORY [facility] - [address] [facility] [address]
--- OUTSIDE RECORDS SUMMARY | 2024-10-18 19:46 | External Medical Summary ---
Author Name Unknown Address Unknown Organization [id number]:LABORATORY [facility] [place] - [address] [place] [address] Laboratory Report Ordering Provider Test Date Status BRISEYDA TOLENTINO SEIFERT 10/10/2024 14:39:14 Final Observation Date Value Abnormality Reference (Units ) Status Magnesium 10/10/2024 14:39:14 2.3 1.5-2.6 (m g/dL) Final Performing Location LABORATORY [facility] - [address] [place] [address]
--- OUTSIDE RECORDS SUMMARY | 2024-10-18 19:46 | External Medical Summary ---
Author Name Unknown Address Unknown Organization [id number]:LABORATORY [facility] [place] - [address] [place] [address] Laboratory Report Ordering Provider Test Date Status BRISEYDA TOLENTINO JOANNE 10/10/2024 14:39:14 Final Observation Date Value Abnormality Reference (Units ) Status Phosphate 10/10/2024 14:39:14 4.7 2.5-4.8 (m g/dL) Final Performing Location LABORATORY [facility] - [address] [place] [address]
--- OUTSIDE RECORDS SUMMARY | 2024-10-18 19:46 | External Medical Summary ---
Author Name Unknown Address Unknown Organization [id number]:LABORATORY [facility] [place] - [address] [place] [address] Laboratory Report Ordering Provider Test Date Status JACOB CARTER 10/10/2024 14:39:14 Final Observation Date Value Abnormality Reference (Units ) Status RICARDO SPECIMEN-LAV 10/10/2024 14:39:14 Freezing of extracted DNA, whole blood and/or serum. Final Performing Location LABORATORY [facility] [place] - [address] [place] [address]
--- OUTSIDE RECORDS SUMMARY | 2024-10-18 19:46 | External Medical Summary ---
Author Name Unknown Address Unknown Organization K01:[facility] [place] [address] [place] [address] Laboratory Report Ordering Provider Test Date Status JACOB CARTER 10/10/2024 14:39:14 Final Observation Date Value Abnormality Reference (Units ) Status MYCODE SPECIMEN-SST 10/10/2024 14:39:14 Freezing of extracted DNA, whole blood and/or serum. Final Performing Location [facility] [place] - [address] [place] [address]
--- OUTSIDE RECORDS SUMMARY | 2024-10-18 19:46 | External Medical Summary ---
Author Name Unknown Address Unknown Organization [id number]:LABORATORY [facility] [place] - [address] [facility] [address] Laboratory Report Ordering Provider Test Date Status BRISEYDA TOLENTINO 10/10/2024 14:39:14 Final Observation Date Value Abnormality Reference (Units ) Status BUN 10/10/2024 14:39:14 12 6-20 (mg/dL) Final Creatinine 10/10/2024 14:39:14 0.8 0.5-1.0 (mg/dL) Final Glomerular filtration rate/1.73 sq M.predicted [Volume Rate/Area] in Serum, Plasma or Blood by Creatinine-based formula (CKD-EPI) 10/10/2024 14:39:14 80 >=60 (mL/min) Final eGFR is calculated based on the CKD-EPI 2020 equation. Sodium 10/10/2024 14:39:14 140 135-146 (m mol/L) Final Potassium 10/10/2024 14:39:14 5.5 Above high normal 3. 5-5.1 (mmol/L) Final Cl 10/10/2024 14:39:14 101 98-107 (mm ol/L) Final CO2 10/10/2024 14:39:14 29 22-32 (mmo l/L) Final Anion gap 10/10/2024 14:39:14 10 7-15 (mmol /L) Final Glucose 10/10/2024 14:39:14 77 70-120 (mg /dL) Final Albumin 10/10/2024 14:39:14 4.3 3.8-5.0 (g /dL) Final AST (Aspartate aminotransferase) 10/10/2024 14:39:14 27 10-35 (U/L) Fin al Alk Phos 10/10/2024 14:39:14 105 35-130 (U/ L) Final Bilirubin, Total 10/10/2024 14:39:14 0.6 <=1 .2 (mg/dL) Final Calcium 10/10/2024 14:39:14 9.8 8.4-10.2 ( mg/dL) Final Protein 10/10/2024 14:39:14 7.2 6.0-8.3 (g /dL) Final ALT (Alanine aminotransferase) 10/10/2024 14:39:14 20 10-35 (U/L) Kamaljit hernandez Performing Location LABORATORY [facility] [place] - [address] [facility] [address]
[2024-10-18] MEDS: KETOROLAC TROMETHAMINE 15 MG/ML VIAL IV ONE (20:32)
[2024-10-18 20:55] LABS: Basophils # (auto) 0.06 K/uL (0.00-0.20); Basophils % (auto) 0.4 %; Eosinophils # (auto) 0.04 K/uL (0.00-0.50); Eosinophils % (auto) 0.2 %; Hematocrit (blood only) 37.3 % (37.0-47.0); Hemoglobin 12.5 g/dl (12.0-16.0); Immature Granulocytes % (auto) 0.6 %; Lymphocytes # (auto) 1.24 K/uL (1.20-3.40); Lymphocytes % (auto) 7.5 %; Mean Corpuscular Hemoglobin 28.5 pg (25.0-34.0); Mean Corpuscular Hgb Conc 33.5 g/dL (32.0-36.0); Mean Corpuscular Volume 85.2 fL (80.0-100.0); Mean Platelet Volume 10.2 fL (9.4-12.4); Monocytes # (auto) 0.79 K/uL (0.11-0.59); Monocytes % (auto) 4.8 %; Neutrophils # (auto) 14.39 K/uL (1.40-6.50); Neutrophils % (auto) 86.5 %; Platelet Count 239 K/uL (130-400); RDW Coefficient of Variation 13.8 % (11.5-14.5); RDW Standard Deviation 42.9 fL (36.4-46.3); Red Blood Count 4.38 M/uL (4.20-5.40); White Blood Count 16.62 K/ul (4.8-10.8)
[2024-10-18 21:00] LABS: Appearance Urine Cloudy (Clear); Bacteria Urine Automated None Seen (None Seen); Bilirubin Urine Negative (Negative); Blood Urine Negative (Negative); Cast Urine Automated 0-2 /lpf (0-2); Color Urine Yellow; Epithelial Cell Urine Auto >20 /hpf (0-2); Glucose Urine UA Negative (Negative); Ketones Urine Trace (Negative); Leukocyte Esterase Urine Trace (Negative); Nitrite Urine Negative (Negative); Protein Urine Trace (Negative); Urobilinogen Urine Negative (Negative); pH Urine 5.5 (4.5-7.5)
[2024-10-18 21:17] LABS: Albumin Level 3.7 gm/dl (3.4-5.0); BUN Creatinine Ratio 23.2 (10-20); Bilirubin Direct 0.1 mg/dl (0-0.2); Calcium 9.3 mg/dl (8.6-10.3); Creatinine Clr Calc Pharmacy 56.9 ml/min; Potassium 3.7 mmol/L (3.5-5.1); Total Protein 6.8 gm/dl (6.0-8.3)
[2024-10-18] MEDS: methylPREDNISolone 125 MG/2 ML VIAL IV STA (21:29)
[2024-10-18] MEDS: ACETAMINOPHEN 1,000 MG/100 ML VIAL IV STA (21:29)
--- NOTE | 2024-10-18 22:02 | Emergency Department Note ---
Impression & Plan Polyarthralgia, Generalized body aches, CRP elevated ED Provider Note NAME: CHRIS GARRISON AGE: 74 SEX: F : 1950 ARRIVES VIA: Walk-In INFORMANT: Patient, ED PROVIDER(S): Hugo Abdi MD CHIEF COMPLAINT: Neck, joint pain HPI: This is 74-year-old female presenting for joint pains and neck pain. Patient notes that she was here in the last 2 weeks with similar symptoms. She has had bilateral knee pain, neck pain, hand pain throughout her wrist as well. She does state the exact same symptoms a few weeks ago when she was here. They did extensive testing including blood work, CT abdomen/pelvis, chest x-ray and a lumbar puncture. These test were all negative aside from a UTI that was treated. Patient had had resolved symptoms since day 2 of her previous admission. She notes that she had no symptoms until tonight when she began having sudden onset of pain. She also had cortisone shots in her bilateral knees on Wednesday. No fevers, chills, nausea or vomiting. Just excruciating pain through her major joints. ROS: See above HPI for pertinent positives & negatives. A total of 10 systems reviewed and were otherwise negative. PAST MEDICAL HISTORY: See Below PAST SURGICAL HISTORY: See Below FAMILY HISTORY: See Below SOCIAL HISTORY: See Below HOME MEDICATIONS: See Below ALLERGIES: See Below VITALS: See Below PHYSICAL EXAMINATION: General: resting comfortably in no acute distress Head: Normocephalic and atraumatic Eyes: Normal inspection, extraocular muscles intact Ear, nose, throat: Normal external exam Neck: Normal range of motion Respiratory: lungs clear to auscultation bilaterally Cardiovascular: Regular rate/rhythm, no murmur GI: soft, nontender, no guarding or rebound Extremities: nontender, moves all extremities Neuro: The patient awake and alert, appropriately conversive, no focal deficits, symmetric faces Skin: Warm, dry, and intact MEDICAL DECISION MAKING: This is a 74-year-old female present for joint pain/neck pain. Patient has no signs of meningismus, sepsis or meningitis. She already had the exact same symptoms with negative lumbar puncture previously. Based on her symptomatology and major joints being affected including neck, knees, wrists, consider rheumatologic condition/autoimmune condition. Consider polymyalgia rheumatica with her current age. -Blood reviewed today showing leukocytosis, elevated CRP otherwise blood work within normal limits. Currently still having pain, I did offer discharge with prescription for steroids. Patient that she is too much pain to walk at this time and request admission -Discussed care with Dr Hsu. Differential diagnosis: Polymyalgia rheumatica, sepsis, meningitis, septic joints Independent History obtained from: Daughter, Diagnostics interpreted by me: ECG: None Cardiac Monitoring: An order was placed for continuous cardiac monitoring. The monitor shows a rate of 77 with sinus rhythm. Past Med/Surg History Problem List (Updated 10/19/24 @ 00:53 by Hugo Abdi MD) CRP elevated (Acute) Elevated erythrocyte sedimentation rate (Acute) Polyarthralgia (Acute) Generalized body aches (Acute) Leukocytosis (Acute) Acute UTI (Acute) Social History Smoking Status: Never smoker Hx Alcohol Use: Yes Alcohol type: wine Hx Substance Use: No Preferred Language: Greek Communication Ability: Effective Pipe Installer Required: No Beliefs That Will Affect Care: None Current Living Situation: Spouse Feels Safe at Home: Yes Assistive Devices: None Allergies Allergies Allergy/AdvReac Type Severity Reaction Status Date / Time No Known Allergies Allergy Unknown Verified 03/26/08 15:18 niacin AdvReac Intermediate SEVERE Verified 11/29/09 04:32 FLUSHING AND DIZZINESS lovastatin AdvReac Mild FLUSHING Unverified 11/29/09 04:32 Home Meds Home Medications Medication Instructions Recorded Confirmed aspirin 81 mg tablet,delayed 81 mg PO DAILY 10/03/24 10/03/24 release atorvastatin 40 mg tablet 40 mg PO DAILY 10/03/24 10/03/24 citalopram 20 mg tablet 20 mg PO DAILY 10/03/24 10/03/24 cyanocobalamin (vitamin B-12) 500 500 mcg PO DAILY 10/03/24 10/03/24 mcg tablet gabapentin 300 mg capsule 300 mg PO TID 10/03/24 10/03/24 levothyroxine 88 mcg tablet 88 mcg PO DAILY 10/03/24 10/03/24 (Synthroid) magnesium oxide 400 mg PO DAILY 10/03/24 10/03/24 omeprazole 20 mg capsule,delayed 20 mg PO DAILY 10/03/24 10/03/24 release semaglutide 2 mg/dose (8 mg/3 mL) 2 mg subcut WK 10/03/24 10/03/24 subcutaneous pen injector (Ozempic) valacyclovir 1 gram tablet 2,000 mg PO UD 10/03/24 10/03/24 Results & Data (ED) Vital Signs Vital Signs - 24 hr 10/18/24 19:39 10/18/24 19:44 10/18/24 20:14 Temperature 36.8 C 36.5 C Temperature Source Oral Temporal Artery Scan Pulse Rate 91 H 81 Pulse Rate [Right Finger] 88 Pulse Rhythm [Right Finger] Regular Pulse Strength [Right Finger] Normal Respiratory Rate 18 18 Respiratory Effort / Characteristics Non-Labored Spontaneous Non-Labored Spontaneous Respiratory Depth Normal Normal Respiratory Pattern Regular Blood Pressure 114/60 Blood Pressure [Right Arm] 123/70 Blood Pressure Mean 78 Blood Pressure Mean [Right Arm] 87 Blood Pressure Position [Right Arm] Lying Pulse Oximetry 96 96 Oxygen Delivery Method Room Air Room Air Oxygen Flow Rate Sepsis Recent Fever Within 48 Hours No Sepsis New/Unexplained Change in Mental Status No Sepsis Action Taken by Nursing No Action Required 10/18/24 21:00 10/18/24 23:00 Temperature Temperature Source Pulse Rate Pulse Rate [Right Finger] 81 77 Pulse Rhythm [Right Finger] Regular Regular Pulse Strength [Right Finger] Normal Normal Respiratory Rate 18 17 Respiratory Effort / Characteristics Non-Labored Spontaneous Non-Labored Spontaneous Respiratory Depth Normal Normal Respiratory Pattern Regular Regular Blood Pressure Blood Pressure [Right Arm] 126/67 117/68 Blood Pressure Mean Blood Pressure Mean [Right Arm] 86 84 Blood Pressure Position [Right Arm] Lying Lying Pulse Oximetry 96 97 Oxygen Delivery Method Room Air Nasal Cannula Oxygen Flow Rate 3 Sepsis Recent Fever Within 48 Hours Sepsis New/Unexplained Change in Mental Status Sepsis Action Taken by Nursing Laboratory Data 10/18/24 20:32 10/18/24 20:32 Lab Results 10/18/24 10/18/24 Range/Units 20:32 20:40 WBC 16.62 H (4.8-10.8) K/ul RBC 4.38 (4.20-5.40) M/uL Hgb 12.5 (12.0-16.0) g/dl Hct 37.3 (37.0-47.0) % MCV 85.2 (80.0-100.0) fL MCH 28.5 (25.0-34.0) pg MCHC 33.5 (32.0-36.0) g/dL RDW Std Deviation 42.9 (36.4-46.3) fL RDW Coeff of Abimael 13.8 (11.5-14.5) % Plt Count 239 (130-400) K/uL MPV 10.2 (9.4-12.4) fL Immature Gran % (Auto) 0.6 % Neut % (Auto) 86.5 % Lymph % (Auto) 7.5 % [place] % (Auto) 4.8 % Eos % (Auto) 0.2 % Baso % (Auto) 0.4 % Neut # (Auto) 14.39 H (1.40-6.50) K/uL Lymph # (Auto) 1.24 (1.20-3.40) K/uL [place] # (Auto) 0.79 H (0.11-0.59) K/uL Eos # (Auto) 0.04 (0.00-0.50) K/uL Baso # (Auto) 0.06 (0.00-0.20) K/uL Immature Gran # (Auto) 0.10 (0.01-0.20) K/uL ESR 29 (0-30) mm/hr Sodium 136 (136-145) mmol/L Potassium 3.7 (3.5-5.1) mmol/L Chloride 104 (98-107) mmol/L Carbon Dioxide 24 (21-32) mmol/L Anion Gap 8 (3-11) BUN 19 (6-23) mg/dl Creatinine 0.82 (0.6-1.2) mg/dl Est Cr Clr Drug Dosing 56.9 ml/min eGFR 74.55 BUN/Creatinine Ratio 23.2 H (10-20) Glucose 145 H (70-99(Fasting)) mg/dl Calcium 9.3 (8.6-10.3) mg/dl Total Bilirubin 1.0 (0.2-1.0) mg/dl Direct Bilirubin 0.1 (0-0.2) mg/dl AST 22 (13-39) U/L ALT 16 (7-52) U/L Alkaline Phosphatase 79 (34-104) U/L C-Reactive Protein 2.44 H (0-0.5) mg/dl Total Protein 6.8 (6.0-8.3) gm/dl Albumin 3.7 (3.4-5.0) gm/dl Lipase 46 (11-82) U/L Urine Color Yellow Urine Appearance Cloudy A (Clear) Urine pH 5.5 (4.5-7.5) Ur Specific [place] 1.040 H (1.000-1.030) Urine Protein Trace H (Negative) Urine Glucose (UA) Negative (Negative) Urine Ketones Trace H (Negative) Urine Blood Negative (Negative) Urine Nitrite Negative (Negative) Urine Bilirubin Negative (Negative) Urine Urobilinogen Negative (Negative) Ur Leukocyte Esterase Trace H (Negative) Urine WBC (Auto) 6-10 H (0-5) /hpf Urine RBC (Auto) 3-5 H (0-2) /hpf U Hyaline Cast (Auto) 0-2 (0-2) /lpf U Epithel Cells (Auto) >20 H (0-2) /hpf Urine Bacteria (Auto) None Seen (None Seen) Administered Medications Discontinued Medications Hydromorphone HCl (Hydromorphone Inj 0.5 Mg/0.5 Ml Syr) 0.5 mg IV NOW STA Stop: 10/18/24 23:20 Last Admin: 10/18/24 23:22 Dose: 0.5 mg Documented By: MOSES Acetaminophen (Ofirmev) 1,000 mg in 100 mls @ 400 mls/hr IV NOW STA Stop: 10/18/24 21:34 Last Infusion: 10/18/24 22:49 Dose: Infused Documented By: Admin: 10/18/24 21:29 Dose: 400 mls/hr Documented By: KATY Ketorolac Tromethamine (Ketorolac Tromethamine 15 Mg/Ml Vial) 15 mg IV NOW ONE Stop: 10/18/24 20:19 Last Admin: 10/18/24 20:32 Dose: 15 mg Documented By: MOSES Methylprednisolone (Methylprednisolone 125 Mg/2 Ml Vial) 125 mg IV NOW STA Stop: 10/18/24 21:21 Last Admin: 10/18/24 21:29 Dose: 125 mg Documented By: KATY Discharge Plan Visit Data Chief Complaint: Neck Injury/Pain Stated Complaint: BAD KNEES, HANDS HURT, SHARP PAINS IN NECK ED Provider: Hugo Abdi Discharge Problem: Polyarthralgia, Generalized body aches, CRP elevated Forms Stand Alone Forms: [facility] Prescriptions Prescriptions: No Action atorvastatin 40 mg tablet 40 mg PO DAILY valacyclovir 1 gram tablet 2,000 mg PO UD Rx Instructions: 2gm po bid x one day prn cold sores levothyroxine [Synthroid] 88 mcg tablet 88 mcg PO DAILY citalopram 20 mg tablet 20 mg PO DAILY gabapentin 300 mg capsule 300 mg PO TID omeprazole 20 mg capsule,delayed release(DR/EC) 20 mg PO DAILY Ozempic 2 mg/dose (8 mg/3 mL) pen injector 2 mg SUBCUT WK aspirin 81 mg Tablet,Delayed Release (Dr/Ec) 81 mg PO DAILY cyanocobalamin (vitamin B-12) 500 mcg Tablet 500 mcg PO DAILY magnesium oxide 400 mg magnesium Tablet 400 mg PO DAILY Referrals Referrals: Liss Penn DO [Primary Care Provider] -
[2024-10-18 22:37] LABS: C Reactive Protein 2.44 mg/dl (0-0.5)
[2024-10-18] MEDS: HYDROmorphone INJ 0.5 MG/0.5 ML SYR IV STA (23:22)
--- NOTE | 2024-10-19 03:55 | History & Physical Report ---
Date of Service October 19, 2024 Assessment & Plan (1) Polyarthralgia: Plan: 74-year-old female with past medical history significant for diabetes, diabetic peripheral neuropathy, hypothyroidism, hyperlipidemia, nonrheumatic aortic valve insufficiency, GERD, osteoarthritis of multiple joints, iron deficiency anemia, recurrent major depression, presents with neck pain and joint pains. Patient says he woke up around 4am in the morning with severe neck pain and headaches and body aches, could no bend the knees and could not ambulate so this reason came to the ER. In the ER she received Toradol, Dilaudid and steroids and now she is feeling much better. Denies any chest pain or shortness of breath. No cough. No fevers.No runny nose or sore throat. No abdominal pain. Normal bowel and bladder movements. Hemodynamics are okay. Patient was in the [facility] in the recent past with similar symptoms during that admission Lyme screen and Anaplasma screen negative. LP was unremarkable. She improved and she was discharged. Patient says since discharge she was doing okay until the symptoms happened today again. Polyarthralgia Came with neck pain headache all joint pains and bodyaches and could not ambulate Currently improved after steroids and Toradol and Dilaudid ESR 29. CRP 2.4 Similar presentation last admission when LP was done which was unremarkable We will continue with prednisone 40 mg daily Need to follow-up with rheumatology as outpatient Monitor in the hospital for now Possible UTI Leukocytosis Will follow cultures Follow labs Hypothyroidism On Synthyroid Hyperlipidemia On statin Depression On citalopram GERD Omeprazole Diabetes Will hold Ozempic Sliding scale Will monitor Diabetic peripheral neuropathy On gabapentin History of iron deficiency anemia Hemoglobin 12.5 DVT prophylaxis SCDs for now History of Present Illness Chief Complaint: Neck pain body ache Primary Care Provider: Liss Penn DO 74-year-old female with past medical history significant for diabetes, diabetic peripheral neuropathy, hypothyroidism, hyperlipidemia, nonrheumatic aortic valve insufficiency, GERD, osteoarthritis of multiple joints, iron deficiency anemia, recurrent major depression, presents with neck pain and joint pains. Patient says she woke up around 4am in the morning with severe neck pain and headaches and body aches, could no bend the knees and could not ambulate so this reason came to the ER. In the ER she received Toradol, Dilaudid and steroids and now she is feeling much better. Denies any chest pain or shortness of breath. No cough. No fevers.No runny nose or sore throat. No abdominal pain. Normal bowel and bladder movements. Hemodynamics are okay. Patient was in the hospital in the recent past with similar symptoms during that admission Lyme screen and Anaplasma screen negative. LP was unremarkable. She improved and she was discharged. Patient says since discharge she was doing okay until the symptoms happened today again. Past medical history. As mentioned above Past surgical history. Colonoscopy. EGD. Foot surgery. Appendectomy. Removal of oviducts. Removal of thyroid lesion. Cholecystectomy. Repair of urethral prolapse, repair of vaginal prolapse, repair of rectocele, stereotactic biopsy, total hysterectomy. Family history. Father had pancreatitis. Mother had cervical cancer. Brother had hypercholesterolemia, diabetes and renal failure. Brother has cirrhosis. Social history. . No smoking. Alcohol rarely. No drug us Allergies Allergy/AdvReac Type Severity Reaction Status Date / Time No Known Allergies Allergy Unknown Verified 03/26/08 15:18 niacin AdvReac Intermediate SEVERE Verified 11/29/09 04:32 FLUSHING AND DIZZINESS lovastatin AdvReac Mild FLUSHING Unverified 11/29/09 04:32 Home Medications Medication Instructions Recorded Confirmed Type aspirin 81 mg tablet,delayed 81 mg PO DAILY 10/03/24 10/19/24 History release atorvastatin 40 mg tablet 40 mg PO DAILY 10/03/24 10/19/24 History citalopram 20 mg tablet 20 mg PO DAILY 10/03/24 10/19/24 History cyanocobalamin (vitamin B-12) 500 500 mcg PO DAILY 10/03/24 10/19/24 History mcg tablet gabapentin 300 mg capsule 300 mg PO TID 10/03/24 10/19/24 History levothyroxine 88 mcg tablet 88 mcg PO DAILY 10/03/24 10/19/24 History (Synthroid) magnesium oxide 400 mg PO DAILY 10/03/24 10/19/24 History omeprazole 20 mg capsule,delayed 20 mg PO DAILY 10/03/24 10/19/24 History release semaglutide 2 mg/dose (8 mg/3 mL) 2 mg subcut WK 10/03/24 10/19/24 History subcutaneous pen injector (Ozempic) valacyclovir 1 gram tablet 2,000 mg PO UD 10/03/24 10/19/24 History Past Med/Surg History Problem List (Updated 10/19/24 @ 00:53 by Hugo Abdi MD) CRP elevated (Acute) Elevated erythrocyte sedimentation rate (Acute) Polyarthralgia (Acute) Generalized body aches (Acute) Leukocytosis (Acute) Acute UTI (Acute) Social History Smoking Status: Never smoker Second Hand Exposure: No; Do You Dip or Chew Tobacco: No; Hx Alcohol Use: Yes Alcohol type: wine Hx Substance Use: No Preferred Language: Malay Communication Ability: Effective Structural 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 ENT- oropharynx clear Neck- supple, no JVD. Lungs- clear to auscultation no wheezing or crackles Heart- regular rate and rhythm; no murmur, no gallop. Abdomen- normal bowel sounds, soft, nontender, no distension. Extremities- no pretibial edema, no erythema seen Neuro- alert, oriented PERRL, no facial palsy; no dysarthria; motor 5/5 bilaterally. Results & Data Results & Data Vital Signs (Past 12 Hours) Vital Signs Temp Pulse Pulse Resp BP BP Pulse Ox 10/19/24 01:04 73 10/19/24 01:00 90 18 140/83 97 10/18/24 23:00 77 17 117/68 97 10/18/24 21:00 81 18 126/67 96 10/18/24 20:14 81 10/18/24 19:44 36.5 C 91 H 18 114/60 96 10/18/24 19:39 36.8 C 88 18 123/70 96 O2 Del Method O2 Flow Rate 10/19/24 01:04 10/19/24 01:00 Nasal Cannula 3 10/18/24 23:00 Nasal Cannula 3 10/18/24 21:00 Room Air 10/18/24 20:14 10/18/24 19:44 Room Air 10/18/24 19:39 Room Air Diagnostic Findings Laboratory Results WBC 16.62 K/ul (4.8-10.8) H 10/18/24 20:32 RBC 4.38 M/uL (4.20-5.40) 10/18/24 20:32 Hgb 12.5 g/dl (12.0-16.0) 10/18/24 20:32 Hct 37.3 % (37.0-47.0) 10/18/24 20: MCV 85.2 fL (80.0-100.0) 10/18/24 20: MCH 28.5 pg (25.0-34.0) 10/18/24 20: MCHC 33.5 g/dL (32.0-36.0) 10/18/24 20: RDW Std Deviation 42.9 fL (36.4-46.3) 10/18/24 20: RDW Coeff of Abimael 13.8 % (11.5-14.5) 10/18/24 20: Plt Count 239 K/uL (130-400) 10/18/24 20: MPV 10.2 fL (9.4-12.4) 10/18/24 20: Immature Gran % (Auto) 0.6 % 10/18/24 20: Neut % (Auto) 86.5 % 10/18/24 20: Lymph % (Auto) 7.5 % 10/18/24 20: [place] % (Auto) 4.8 % 10/18/24 20: Eos % (Auto) 0.2 % 10/18/24: Baso % (Auto) 0.4 % 10/18/24 20: Neut # (Auto) 14.39 K/uL (1.40-6.50) H 10/18/24 20:32 Lymph # (Auto) 1.24 K/uL (1.20-3.40) 10/18/24 20: [place] # (Auto) 0.79 K/uL (0.11-0.59) H 10/18/24 20:32 Eos # (Auto) 0.04 K/uL (0.00-0.50) 10/18/24 20: Baso # (Auto) 0.06 K/uL (0.00-0.20) 10/18/24 20:32 Immature Gran # (Auto) 0.10 K/uL (0.01-0.20) 10/18/24 20:32 ESR 29 mm/hr (0-30) 10/18/24 20:32 Sodium 136 mmol/L (136-145) 10/18/24 20:32 Potassium 3.7 mmol/L (3.5-5.1) 10/18/24 20: Chloride 104 mmol/L (98-107) 10/18/24 20:32 Carbon Dioxide 24 mmol/L (21-32) 10/18/24 20:32 Anion Gap 8 (3-11) 10/18/24 20:32 BUN 19 mg/dl (6-23) 10/18/24 20: Creatinine 0.82 mg/dl (0.6-1.2) 10/18/24 20:32 Est Cr Clr Drug Dosing 56.9 ml/min 10/18/24 20:32 eGFR 74.55 10/18/24 20:32 BUN/Creatinine Ratio 23.2 (10-20) H 10/18/24 20:32 Glucose 145 mg/dl (70-99(Fasting)) H 10/18/24 20:32 Calcium 9.3 mg/dl (8.6-10.3) 10/18/24 20:32 Total Bilirubin 1.0 mg/dl (0.2-1.0) 10/18/24 20:32 Direct Bilirubin 0.1 mg/dl (0-0.2) 10/18/24 20:32 AST 22 U/L (13-39) 10/18/24 20:32 ALT 16 U/L (7-52) 10/18/24 20:32 Alkaline Phosphatase 79 U/L (34-104) 10/18/24 20:32 C-Reactive Protein 2.44 mg/dl (0-0.5) H 10/18/24 20:32 Total Protein 6.8 gm/dl (6.0-8.3) 10/18/24 20:32 Albumin 3.7 gm/dl (3.4-5.0) 10/18/24 20:32 Lipase 46 U/L (11-82) 10/18/24 20:32 Urine Color Yellow 10/18/24 20:40 Urine Appearance Cloudy (Clear) A 10/18/24 20:40 Urine pH 5.5 (4.5-7.5) 10/18/24 20:40 Ur Specific [place] 1.040 (1.000-1.030) H 10/18/24 20:40 Urine Protein Trace (Negative) H 10/18/24 20:40 Urine Glucose (UA) Negative (Negative) 10/18/24 20:40 Urine Ketones Trace (Negative) H 10/18/24 20:40 Urine Blood Negative (Negative) 10/18/24 20:40 Urine Nitrite Negative (Negative) 10/18/24 20:40 Urine Bilirubin Negative (Negative) 10/18/24 20:40 Urine Urobilinogen Negative (Negative) 10/18/24 20:40 Ur Leukocyte Esterase Trace (Negative) H 10/18/24 20:40 Urine WBC (Auto) 6-10 /hpf (0-5) H 10/18/24 20:40 Urine RBC (Auto) 3-5 /hpf (0-2) H 10/18/24 20:40 U Hyaline Cast (Auto) 0-2 /lpf (0-2) 10/18/24 20:40 U Epithel Cells (Auto) >20 /hpf (0-2) H 10/18/24 20:40 Urine Bacteria (Auto) None Seen (None Seen) 10/18/24 20:40 Code Status & VTE Plan VTE Prophylaxis Plan VTE Prophylaxis will be ordered: Yes
[2024-10-19] MEDS ORDERED: POLYETHYLENE (MIRALAX) 17 GM PACK PO PRN (06:05)
[2024-10-19] MEDS: LEVOTHYROXINE SODIUM 88 MCG TABLET PO SCH (06:32)
[2024-10-19] MEDS: ACETAMINOPHEN 325 MG TAB PO PRN (07:51)
[2024-10-19] MEDS: predniSONE 20 MG TAB PO SCH (07:52)
[2024-10-19] MEDS: CYANOCOBALAMIN (B-12) 500 MCG TABLET PO SCH (07:53)
[2024-10-19] MEDS: ATORVASTATIN 40 MG TAB PO SCH (07:53)
[2024-10-19] MEDS: GABAPENTIN 300 MG CAP PO SCH (07:53)
[2024-10-19] MEDS: ASPIRIN 81 MG ECTAB PO SCH (07:53)
[2024-10-19] MEDS: MAGNESIUM OXIDE 400 MG TAB PO SCH (07:54)
[2024-10-19] MEDS: CITALOPRAM 20 MG TAB PO SCH (07:54)
[2024-10-19] MEDS: PANTOprazole 40 MG TAB PO SCH (07:54)
[2024-10-19 08:26] LABS: Hematocrit (blood only) 38.1 % (37.0-47.0); Hemoglobin 12.6 g/dl (12.0-16.0); Mean Corpuscular Hemoglobin 28.1 pg (25.0-34.0); Mean Corpuscular Hgb Conc 33.1 g/dL (32.0-36.0); Mean Corpuscular Volume 84.9 fL (80.0-100.0); Mean Platelet Volume 10.2 fL (9.4-12.4); Platelet Count 225 K/uL (130-400); RDW Coefficient of Variation 13.8 % (11.5-14.5); RDW Standard Deviation 42.9 fL (36.4-46.3); Red Blood Count 4.49 M/uL (4.20-5.40); White Blood Count 14.44 K/ul (4.8-10.8)
[2024-10-19 08:32] LABS: BUN Creatinine Ratio 35.7 (10-20); Calcium 9.5 mg/dl (8.6-10.3); Creatinine Clr Calc Pharmacy 83.4 ml/min; Magnesium 1.8 mg/dl (1.7-2.4)
[2024-10-19 08:40] LABS: Estimated Average Glucose 123 mg/dl; Hemoglobin A1C 5.9 % (4.5-5.6)
[2024-10-19 08:45] LABS: Basophils # (auto) 0.02 K/uL (0.00-0.20); Basophils % (auto) 0.1 %; Immature Granulocytes # (auto) 0.11 K/uL (0.01-0.20); Immature Granulocytes % (auto) 0.8 %; Lymphocytes # (auto) 0.63 K/uL (1.20-3.40); Lymphocytes % (auto) 4.4 %; Monocytes # (auto) 0.18 K/uL (0.11-0.59); Monocytes % (auto) 1.2 %; Neutrophils % (auto) 93.5 %; Ovalocytes 1+
[2024-10-19] MEDS ORDERED: oxyCODONE/ACETAMINOPHEN 5mg/325mg TAB PO PRN (11:30)
[2024-10-19] MEDS: NAPROXEN 250 MG TAB PO SCH (11:56)
--- NOTE | 2024-10-19 16:24 | Hospitalist Progress Note ---
Date of Service October 19, 2024 Assessment & Plan (1) Polyarthralgia: Plan: 74-year-old female with past medical history significant for diabetes, diabetic peripheral neuropathy, hypothyroidism, hyperlipidemia, nonrheumatic aortic valve insufficiency, GERD, osteoarthritis of multiple joints, iron deficiency anemia, recurrent major depression, presents with neck pain and joint pains. Patient says he woke up around 4am in the morning with severe neck pain and headaches and body aches, could no bend the knees and could not ambulate so this reason came to the ER. In the ER she received Toradol, Dilaudid and steroids and now she is feeling much better. Denies any chest pain or shortness of breath. No cough. No fevers.No runny nose or sore throat. No abdominal pain. Normal bowel and bladder movements. Hemodynamics are okay. [facility] with similar symptoms during that admission Lyme screen and Anaplasma screen negative. LP was unremarkable. She improved and she was discharged. Patient says since discharge she was doing okay until the symptoms happened today again. Polyarthralgia Came with neck pain headache all joint pains and bodyaches and could not ambulate Currently improved after steroids and Toradol and Dilaudid ESR 29. CRP 2.4 Similar presentation last admission when LP was done which was unremarkable We will continue with prednisone 40 mg daily Need to follow-up with rheumatology as outpatient Pain is not well-controlled Has been getting prednisone 40 mg daily and will taper may be 10 mg every 2 to 3 days on discharge Will add naproxen to 50 mg twice daily and a small dose of narcotic pain medications Which will not be continued on discharge Elevated blood sugar Was on Ozempic as an outpatient Will start sliding scale insulin coverage as long as on prednisone Possible UTI Leukocytosis Will follow cultures Denies any urinary symptoms and does not have any fever and/or chills and white count is normal Await urine culture report to initiate any antibiotic Hypothyroidism On Synthyroid Hyperlipidemia On statin Depression On citalopram GERD Omeprazole Diabetes Will hold Ozempic Sliding scale Will monitor Diabetic peripheral neuropathy On gabapentin History of iron deficiency anemia Hemoglobin 12.5 DVT prophylaxis SCDs for now Admission and Anticipated Discharge Date Admission Date: October 19, 2024 Subjective 10/19/2024 The patient was seen and examined in medical floor She was admitted with arthralgia/arthritis involving multiple joints of the body including neck She has been feeling little better but the pain is not reasonably controlled She was given a small dose of narcotic pain medications and warned against possible side effect Review of Systems Review of Systems: All systems reviewed and are unremarkable except as noted below Physical Exam Physical Exam: Lying in bed with acute distress due to pain in the neck and multiple other joints Constitutional: well developed, well nourished, + ill appearing and average body habitus Eyes: PERRL, conjunctivae normal, anicteric sclerae ENMT: external ear and nose normal, oropharynx normal Neck: trachea midline, no thyromegaly Respiratory: + respiratory distress Auscultation: lungs clear to auscultation bilaterally Cardiovascular: Rate/Rhythm: regular rate and regular rhythm; not tachycardic Heart Sounds: normal S1 and normal S2; no murmur Extremities: no edema Gastrointestinal (Abdomen): Inspection/Auscultation: normal bowel sounds; abdomen not distended Percussion/Palpation: abdomen soft; abdomen nontender Musculoskeletal: Has arthritis involving multiple joints but does not have any acute arthritis involving any of the joint Neurologic: normal touch/pain/proprioception and moves all extremities; no focal motor deficits No signs and or symptoms of meningism or meningitis Psychiatric: A+Ox3, euthymic affect Lymphatic: no cervical or axillary lymphadenopathy Results & Data Results & Data Vital Signs (Past 12 Hours) Vital Signs Temp Pulse Pulse Resp BP BP Pulse Ox 10/19/24 14:36 36.9 C 70 18 128/55 L 94 10/19/24 05:30 36.6 C 60 16 155/76 H 93 10/19/24 04:53 66 10/19/24 04:50 36.8 C 73 16 117/62 94 10/19/24 04:27 36.8 C 70 15 125/66 91 10/19/24 04:22 75 15 125/66 98 O2 Del Method O2 Flow Rate 10/19/24 14:36 Room Air 10/19/24 05:30 Room Air 10/19/24 04:53 10/19/24 04:50 Room Air 10/19/24 04:27 Room Air 10/19/24 04:22 Nasal Cannula 2 Laboratory Results Short CBC 10/18/24 10/19/24 Range/Units 20:32 07:35 WBC 16.62 H 14.44 H (4.8-10.8) K/ul Hgb 12.5 12.6 (12.0-16.0) g/dl Hct 37.3 38.1 (37.0-47.0) % Plt Count 239 225 (130-400) K/uL BMP 10/18/24 10/19/24 20:32 07:35 Sodium 136 136 Potassium 3.7 4.0 Chloride 104 106 Carbon Dioxide 24 24 BUN 19 20 Creatinine 0.82 0.56 L Glucose 145 H 211 H Calcium 9.3 9.5 Liver Function 10/18/24 Range/Units 20:32 Total Bilirubin 1.0 (0.2-1.0) mg/dl Direct Bilirubin 0.1 (0-0.2) mg/dl AST 22 (13-39) U/L ALT 16 (7-52) U/L Alkaline Phosphatase 79 (34-104) U/L Albumin 3.7 (3.4-5.0) gm/dl Urine 10/18/24 Range/Units 20:40 Urine Color Yellow Urine Appearance Cloudy A (Clear) Urine pH 5.5 (4.5-7.5) Ur Specific [place] 1.040 H (1.000-1.030) Urine Protein Trace H (Negative) Urine Glucose (UA) Negative (Negative) Medications Administered Current Inpatient Medications Acetaminophen (Acetaminophen 325 Mg Tab) 650 mg PO Q4H PRN PRN Reason: pain/fever Stop: 11/18/24 06:04 Last Admin: 10/19/24 07:51 Dose: 650 mg Aspirin (Aspirin 81 Mg Ectab) 81 mg PO DAILY CARMEN Stop: 11/18/24 08:59 Last Admin: 10/19/24 07:53 Dose: 81 mg Atorvastatin Calcium (Atorvastatin 40 Mg Tab) 40 mg PO DAILY [facility] Stop: 11/18/24 08:59 Last Admin: 10/19/24 07:53 Dose: 40 mg Citalopram Hydrobromide (Citalopram 20 Mg Tab) 20 mg PO DAILY [facility] Stop: 11/18/24 08:59 Last Admin: 10/19/24 07:54 Dose: 20 mg Cyanocobalamin (Cyanocobalamin (B-12) 500 Mcg Tablet) 500 mcg PO DAILY [facility] Stop: 11/18/24 08:59 Last Admin: 10/19/24 07:53 Dose: 500 mcg Gabapentin (Gabapentin 300 Mg Cap) 300 mg PO TID [facility] Stop: 11/18/24 08:59 Last Admin: 10/19/24 15:22 Dose: 300 mg Insulin Aspart (Insulin Aspart Per Unit Charge) 0 units SC ACHS [facility] Stop: 11/18/24 16:29 Levothyroxine Sodium (Levothyroxine Sodium 88 Mcg Tablet) 88 mcg PO DAILYBB [facility] Stop: 11/18/24 06:29 Last Admin: 10/19/24 06:32 Dose: 88 mcg Magnesium Oxide (Magnesium Oxide 400 Mg Tab) 400 mg PO DAILY [facility] Stop: 11/18/24 08:59 Last Admin: 10/19/24 07:54 Dose: 400 mg Naproxen (Naproxen 250 Mg Tab) 250 mg PO BID [facility] Stop: 11/18/24 11:29 Last Admin: 10/19/24 11:56 Dose: 250 mg Oxycodone/Acetaminophen (Oxycodone/Acetaminophen 5mg/325mg Tab) 1 tab PO Q8H PRN PRN Reason: Severe Pain (Scale 7, 8, 9,10) Stop: 11/02/24 11:29 Pantoprazole Sodium (Pantoprazole 40 Mg Tab) 40 mg PO DAILY [facility] Stop: 11/18/24 08:59 Last Admin: 10/19/24 07:54 Dose: 40 mg Polyethylene Glycol (Polyethylene (Miralax) 17 Gm Pack) 17 gm PO DAILY PRN PRN Reason: Constipation Stop: 11/18/24 06:04 Prednisone (Prednisone 20 Mg Tab) 40 mg PO DAILY [facility] Stop: 11/18/24 08:59 Last Admin: 10/19/24 07:52 Dose: 40 mg
[2024-10-19] MEDS: INSULIN ASPART PER UNIT CHARGE SC SCH (18:19)
[2024-10-19 20:11] VITALS: TEMP 97.7
[2024-10-20 06:48] LABS: Basophils # (auto) 0.03 K/uL (0.00-0.20); Basophils % (auto) 0.2 %; Eosinophils # (auto) 0.01 K/uL (0.00-0.50); Eosinophils % (auto) 0.1 %; Hematocrit (blood only) 34.9 % (37.0-47.0); Hemoglobin 11.6 g/dl (12.0-16.0); Immature Granulocytes # (auto) 0.11 K/uL (0.01-0.20); Immature Granulocytes % (auto) 0.7 %; Lymphocytes # (auto) 1.83 K/uL (1.20-3.40); Lymphocytes % (auto) 11.2 %; Mean Corpuscular Hemoglobin 28.2 pg (25.0-34.0); Mean Corpuscular Hgb Conc 33.2 g/dL (32.0-36.0); Mean Corpuscular Volume 84.7 fL (80.0-100.0); Mean Platelet Volume 10.2 fL (9.4-12.4); Monocytes # (auto) 1.27 K/uL (0.11-0.59); Monocytes % (auto) 7.8 %; Neutrophils # (auto) 13.06 K/uL (1.40-6.50); Platelet Count 255 K/uL (130-400); RDW Coefficient of Variation 13.8 % (11.5-14.5); RDW Standard Deviation 42.7 fL (36.4-46.3); Red Blood Count 4.12 M/uL (4.20-5.40); White Blood Count 16.31 K/ul (4.8-10.8)
[2024-10-20 07:10] LABS: BUN Creatinine Ratio 41.9 (10-20); Calcium 9.2 mg/dl (8.6-10.3); Creatinine Clr Calc Pharmacy 75.3 ml/min; Potassium 3.9 mmol/L (3.5-5.1)
[2024-10-20 07:46] VITALS: BP 126/77; PULSE 62; RESP 18; O2SAT 94
--- NOTE | 2024-10-20 13:31 | Discharge Summary ---
Discharge Summary Date of Service October 20, 2024 Principal Dx & Hospital Course #1 = Principal Diagnosis (1) Polyarthralgia: Plan Pt is a 74-year-old female with past medical history significant for diabetes, diabetic peripheral neuropathy, hypothyroidism, hyperlipidemia, nonrheumatic aortic valve insufficiency, GERD, osteoarthritis of multiple joints, iron deficiency anemia, recurrent major depression who presented with neck and joint pains. Patient says he woke up around 4am in the morning with severe neck pain and headaches and body aches, could no bend the knees and could not ambulate. In the ER she received Toradol, Dilaudid and steroids and now she is feeling much better. Patient was in the hospital in the recent past with similar symptoms during that admission, Lyme screen and Anaplasma screen negative. LP was unremarkable. She improved and she was discharged. Patient says since discharge she was doing well until the symptoms happened again. Polyarthralgia Came with neck pain, headache,l joint pains and bodyaches and could not ambulate Improved after steroids and Toradol and Dilaudid ESR 29, down from 41. CRP 2.4, down from 5.44 Similar presentation last admission when LP was done which was unremarkable Treated with prednisone 40 mg daily, taper on discharge. also discharged with prn percocet Followup with Rheumatology and Pain management recommended on discharge Close PCP followup as well DMII Hgba1c of 5.9 On ozempic Will need close monitoring of glucose levels while on prednisone. Possible UTI UA suggestive of infection, urine Cx with NGTD Denies any urinary symptoms and does not have any fever and/or chills No antibiotics on discharge given negative urine Cx and pt asymptomatic Continue other home meds as ordered Notes For Next Care Provider Please continue with pain management- consider Rheumatology and Pain Management referrals/followup Medication Changes From Visit Prednisone 40mg taper PRN Percocet 5mg-325mg Admission HPI Per Admitting Provider 74-year-old female with past medical history significant for diabetes, diabetic peripheral neuropathy, hypothyroidism, hyperlipidemia, nonrheumatic aortic valve insufficiency, GERD, osteoarthritis of multiple joints, iron deficiency anemia, recurrent major depression, presents with neck pain and joint pains. Patient says she woke up around 4am in the morning with severe neck pain and headaches and body aches, could no bend the knees and could not ambulate so this reason came to the ER. In the ER she received Toradol, Dilaudid and steroids and now she is feeling much better. Denies any chest pain or shortness of breath. No cough. No fevers.No runny nose or sore throat. No abdominal pain. Normal bowel and bladder movements. Hemodynamics are okay. Patient was in the hospital in the recent past with similar symptoms during that admission Lyme screen and Anaplasma screen negative. LP was unremarkable. She improved and she was discharged. Patient says since discharge she was doing okay until the symptoms happened today again. Past medical history. As mentioned above Past surgical history. Colonoscopy. EGD. Foot surgery. Appendectomy. Removal of oviducts. Removal of thyroid lesion. Cholecystectomy. Repair of urethral prolapse, repair of vaginal prolapse, repair of rectocele, stereotactic biopsy, total hysterectomy. Family history. Father had pancreatitis. Mother had cervical cancer. Brother had hypercholesterolemia, diabetes and renal failure. Brother has cirrhosis. Social history. . No smoking. Alcohol rarely. No drug us Admission Exam Per Admitting Provider General- Not in distress Head- atraumatic Eyes- PERRL. ENT- oropharynx clear Neck- supple, no JVD. Lungs- clear to auscultation no wheezing or crackles Heart- regular rate and rhythm; no murmur, no gallop. Abdomen- normal bowel sounds, soft, nontender, no distension. Extremities- no pretibial edema, no erythema seen Neuro- alert, oriented PERRL, no facial palsy; no dysarthria; motor 5/5 bilaterally. Discharge Exam General: Alert, oriented. No acute distress Psych: Appropriate mood and affect Neuro: No gross deficits while laying in bed HEENT: NC/AT CV: RRR Resp: Breath sounds clear bilaterally, no increased effort of breathing Abdomen: Soft, nontender Extremities: L>R knee swelling, no warmth or erythema Updated Medication List Medication Instructions Recorded Confirmed Type aspirin 81 mg tablet,delayed 81 mg PO DAILY 10/03/24 10/19/24 History release atorvastatin 40 mg tablet 40 mg PO DAILY 10/03/24 10/19/24 History citalopram 20 mg tablet 20 mg PO DAILY 10/03/24 10/19/24 History cyanocobalamin (vitamin B-12) 500 500 mcg PO DAILY 10/03/24 10/19/24 History mcg tablet gabapentin 300 mg capsule 300 mg PO TID 10/03/24 10/19/24 History levothyroxine 88 mcg tablet 88 mcg PO DAILY 10/03/24 10/19/24 History (Synthroid) magnesium oxide 400 mg PO DAILY 10/03/24 10/19/24 History semaglutide 2 mg/dose (8 mg/3 mL) 2 mg subcut WK 10/03/24 10/19/24 History subcutaneous pen injector (Ozempic) valacyclovir 1 gram tablet 2,000 mg PO UD 10/03/24 10/19/24 History oxycodone-acetaminophen 5 mg-325 1 tab PO Q8H PRN severe pain 10/20/24 Rx mg tablet (Percocet) (scale score 7-10) #6 tabs pantoprazole 40 mg tablet,delayed 40 mg PO BID #60 tabs 10/20/24 Rx release prednisone 5 mg tablet See Rx Instructions PO .COMPLEX 10/20/24 Rx #36 tabs Hospital Stay Data Consultations 10/18/24 23:24 ED Decision to Admit Stat Discharge Instructions Given to Patient (Per Discharging Provider) Batsheva, You are admitted and treated for your pain. We started you on a prednisone taper and your symptoms seem to improve. Please continue with the prednisone at home as prescribed. Your glucose levels appear to be under control with a noted hemoglobin A1c of 5.9. Please continue with pantoprazole 40 mg twice a day instead of your home omeprazole to help protect your GI tract while you are on the prednisone. We are also discharging you home with a few pills of oxycodone to help with pain on an as-needed basis when it is very severe. Please keep close follow-up with your primary care provider after discharge as they will need to refer you to a dye padder operator for further evaluation and management of your pain. You can also consider follow-up with a spray ii painter for further assistance as well. Again, please keep close follow up with your primary care provider after discharge. Please do not hesitate to come back to the emergency room if your symptoms worsen or return. It was a pleasure taking care of you while you were here. Total Time Total Time Spent Total Time Spent (In Minutes): 65
== END 2024-10-20 15:58 | disposition home or self-care (01) ==
LOC: ED 19:38 → 3N 19:38 → SUATTDRO 10-19 03:23 → 3N 10-19 04:50
DX: Z79.899 Other long term (current) drug therapy; E11.9 Type 2 diabetes mellitus without complications; Z79.82 Long term (current) use of aspirin; Z79.85 Long-term (current) use of injectable non-insulin antidiabetic drugs; R79.82 Elevated C-reactive protein (CRP); Z88.8 Allergy status to other drugs, medicaments and biological substances; M79.10 Myalgia, unspecified site; M25.50 Pain in unspecified joint; Z79.890 Hormone replacement therapy